=== PATIENT | female | born 1940 | race American Indian/Alaskan Native ===

== ENCOUNTER 2016-07-24 10:40 | Inpatient (IN) | payer MEDICARE, OTHER ==
[2016-07-24 10:42] VITALS: BMI 21.5
--- NOTE | 2016-07-24 11:01 | CT ---
PROCEDURE: CT HEAD WITHOUT CONTRAST. HISTORY: code stroke COMPARISON: None available. TECHNIQUE: Axial computed tomography images were obtained through the head/brain without intravenous contrast. Radiation dose: Total exam DLP = mGy-cm. FINDINGS: HEMORRHAGE: No intracranial hemorrhage. BRAIN: No mass effect or edema. No atrophy or chronic microvascular ischemic changes. VENTRICLES: Unremarkable. No hydrocephalus. CALVARIUM: Unremarkable. PARANASAL SINUSES: Unremarkable as visualized. No significant inflammatory changes. MASTOID AIR CELLS: Unremarkable as visualized. No inflammatory changes. OTHER FINDINGS: None. IMPRESSION: No evidence of acute intracranial hemorrhage territorial infarct mass effect or midline shift.
--- NOTE | 2016-07-24 11:06 | ED PDOC ---
HPI:STROKE - Time Time: 10:50 - Historian Historian: Patient, Family, EMS - Chief Complaint Chief Complaint: Weakness - Onset Date: 07/24/16 Onset: This morning - Timing Timing: Currently Symptomatic - Context Context: Home - Location Locate left: Upper extremity - Severity of pain Maximum severity:: Moderate Pain Scale:: 0 Severity Current: Moderate Pain Scale:: 0 - Associated Symptoms Associated symptoms:: Dysarthria, Paralysis - Exacerbated by Exacerbated by:: Nothing - Relieved by Relieved by:: Nothing - TPA Positive for Contraindication: Yes Reason tPA is not being Administered: last known well 10pm yesterday - Notes: Notes:: Patient is a 75 year old female brought to ED by EMS for possible stroke. According to family and EMS, patient with left sided weakness with unspecified onset time. Patient last seem normal last night. As per patient, she woke up at 0900 unable to get out of bed. She reports her body was not moving and she did not feel well. At about 0950 she called out to family for help. At this time they noticed the deficits, facial droop, left arm/leg weakness and slurred speech and called EMS. Currently in ED patient denies any complaints including current weakness, notes only her chronic right knee pain NIHSS Stroke Scale - Date/Time Evaluation Performed Date Performed: 07/24/16 Time Performed: 11:00 When Was NIHSS Performed: Baseline - How Severe is the Stroke Level of Consciousness: 0=Alert LOC to Questions: 0=Both comments correct LOC to commands: 0=Obeys both correctly Best Gaze: 1=Partial gaze palsy Visual: 0=No visual loss Facial: 1=Minor asymmetry Motor Arm - Left: 3=No effort against gravity (falls immediately) Motor Arm - Right: 0=No drift Motor Leg - Left: 2=Falls before 5 sec Motor Leg - Right: 2=Falls before 5 sec Limb Ataxia: 0=Absent Sensory: 1=Mild to moderate loss Best Language: 0=No aphasia Dysarthia: 1=Mild to moderate slurring Extinction & Inattention (Neglect): 1=Partial neglect (mild regi-attention) Score: 12 rTPA Inclusion/Exclusion - Refusal of Treatment Patient Refused Treatment: No - Inclusion Criteria for Altepase Patient is 18 years or Older: Yes The Clinical Diagnosis of Ischemic Stroke That is Causing a Potentially Disabling Neurological Deficit: Yes Time of Onset is Well Established to be Less Than 270 Minute Before Treatment Would Begin: No Risk/Benefit Discussed With Patient/Family Member Present: No Past Medical History Reviewed: Historical Data, Nursing Documentation, Vital Signs Vital Signs: Last Vital Signs Temp Pulse 90 07/24/16 10:49 Resp 23 07/24/16 10:49 BP Pulse Ox 99 07/24/16 10:49 - Medical History PMH: Atrial Fibrillation, Diabetes, HTN - Surgical History Surgical History: No Surg Hx - Family History Family History: States: Unknown Family Hx - Living Arrangements Living Arrangements: With Family (with ) - Home Medications Home Medications: Ambulatory Orders Medication Instructions Recorded Cephalexin [Keflex] 500 mg PO TID #21 cap 10/28/14 Sulfamethoxazole/Trimethopri 1 tab PO BID #14 tab 10/28/14 [Bactrim Ds 800 mg-160 mg] - Allergies Allergies/Adverse Reactions: Allergies Allergy/AdvReac Type Severity Reaction Status Date / Time No Known Allergies Allergy Verified 10/28/14 13:18 Review of Systems ROS Statement: Except As Marked, All Systems Reviewed And Found Negative Constitutional: Negative for: Fever Cardiovascular: Negative for: Chest Pain, Palpitations Respiratory: Negative for: Shortness of Breath Gastrointestinal: Negative for: Abdominal Pain Neurological: Positive for: Weakness, Change in Speech. Negative for: Altered Mental Status, Headache Physical Exam - Reviewed Nursing Documentation Reviewed: Yes Vital Signs Reviewed: Yes - Physical Exam Appears: Negative for: No Acute Distress Head Exam: Positive for: ATRAUMATIC, NORMAL INSPECTION, NORMOCEPHALIC Skin: Positive for: Normal Color, Warm Eye Exam: Positive for: EOMI, PERRL. Negative for: Nystagmus Neck: Positive for: Normal, Painless ROM Cardiovascular/Chest: Positive for: Chest Non Tender, Irregularly Irregular. Negative for: Murmur, Tachycardia Respiratory: Positive for: Normal Breath Sounds. Negative for: Wheezing, Respiratory Distress Gastrointestinal/Abdominal: Positive for: Normal Exam, Soft. Negative for: Tenderness Extremity: Positive for: Normal ROM, Other (Total weakness left arm and partial left leg ). Negative for: Pedal Edema Neurologic/Psych: Positive for: Alert, Oriented, Cerebellar Tests (intact), Facial Droop (left sided), Other. Negative for: digital editor II-XII ((+) gaze deviation right sided ), Aphasia - Laboratory Results Result Diagrams: 07/24/16 11:26 07/24/16 11:26 - ECG ECG: Positive for: Interpreted By Me ECG Rhythm: Positive for: Normal QRS, Atrial Fibrillation. Negative for: ST/T Changes Rate: 71 O2 Sat by Pulse Oximetry: 99 (RA) Pulse Ox Interpretation: Normal - Radiology X-Ray: Viewed By Me, Read By Radiologist X-Ray Interpretation: Cardiomegaly Medical Decision Making Medical Decision Making: Time: 1045 Initial impression: acute CVA Initial plan: Code stroke called, patient immediately sent to CT-head -- Type and screen -- CT-head -- CMP -- A1C -- Lipid -- Troponin -- CBC -- PT/PTT -- CXR -- Cardiac monitoring Time: 1059 CT-head results reviewed PROCEDURE: CT HEAD WITHOUT CONTRAST. HISTORY: code stroke COMPARISON: None available. TECHNIQUE: Axial computed tomography images were obtained through the head/brain without intravenous contrast. Radiation dose: Total exam DLP = mGy-cm. FINDINGS: HEMORRHAGE: No intracranial hemorrhage. BRAIN: No mass effect or edema. No atrophy or chronic microvascular ischemic changes. VENTRICLES: Unremarkable. No hydrocephalus. CALVARIUM: Unremarkable. PARANASAL SINUSES: Unremarkable as visualized. No significant inflammatory changes. MASTOID AIR CELLS: Unremarkable as visualized. No inflammatory changes. OTHER FINDINGS: None. IMPRESSION: No evidence of acute intracranial hemorrhage territorial infarct mass effect or midline shift. Time: [address] Howard, patient is outside the window for TPA or endovascular treatment due to time of onset is over 8 hours and within 12 hours , agrees with stroke work up and admission Time: 1330 MRI-Head PROCEDURE: MRI BRAIN WITHOUT CONTRAST HISTORY: stroke COMPARISON: None. TECHNIQUE: Multiplanar, multisequence MR images of the brain were obtained without intravenous contrast enhancement. FINDINGS: Somewhat limited study due to the patient's motion. HEMORRHAGE: None DWI: Diffusion restriction at the right temporal frontal lobe suggestive of acute right MCA territory infarct. BRAIN PARENCHYMA: Mild mass effect on the right lateral ventricle is noted. No evidence of significant midline shift. No atrophy or chronic microvascular ischemic changes. VENTRICLES: Unremarkable. No hydrocephalus. CRANIUM: Unremarkable. ORBITS: Grossly unremarkable. PARANASAL SINUSES/MASTOIDS: Clear VASCULAR SYSTEM: Skull base flow voids intact. OTHER FINDINGS: None. IMPRESSION: Diffusion restriction at the right temporal frontal parietal lobe suggestive of moderate-sized acute right MCA territory infarct. Mild mass effect on the right lateral ventricle without evidence of midline shift. Time: 1348 MRA head PROCEDURE: Magnetic Resonance Angiography Brain HISTORY: stroke COMPARISON: None available. TECHNIQUE: 3D time of flight MR angiography of the intracranial arteries was performed. Rotating maximum intensity projection images were generated. FINDINGS: INTERNAL CEREBRAL ARTERIES: The distal portion of the right internal cerebral artery is not visualized. Diffuse irregularity in the distal left internal carotid artery. ANTERIOR CEREBRAL ARTERIES: The right anterior cerebral artery reconstitute from the left circulation. . Right A1 is not visualized. A2 segments are widely patent. Smaller distal branches unremarkable, as visualized. MIDDLE CEREBRAL ARTERIES: The right middle cerebral artery is not visualized. Diffuse irregularity and foci of mild stenosis in the left middle cerebral artery. POSTERIOR CIRCULATION: Basilar Artery: Small in size. Distal Vertebral Arteries: Small in size Posterior Cerebral Arteries: Unremarkable. Posterior Inferior Cerebellar Arteries: Unremarkable. ANEURYSM/ VASCULAR MALFORMATIONS: None. OTHER FINDINGS: None. IMPRESSION: Nonvisualization of the distal right internal carotid artery. Nonvisualization of the right middle cerebral artery. Reconstitution of the right anterior cerebral artery from the left circulation via left A1. Diffuse irregularity in the visualized intracranial arteries consistent with atherosclerotic disease. Small size distal vertebral and basilar arteries Time: 1354 MRA neck PROCEDURE: MR Angiography of the neck without contrast HISTORY: stroke COMPARISON: None available. TECHNIQUE: 3D [id number] angiography of the neck was performed. Rotating maximum intensity projection images of the cervical carotid and vertebral arteries were generated. The origins of the common carotid arteries were not visualized, which is a limitation inherent to the non-contrast time of flight technique. FINDINGS: The study markedly degraded by the patient's motion RIGHT CAROTID ARTERIES: Common Carotid Artery: The right common carotid artery at these smaller than the left. 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 External Carotid Artery (proximal branches): Both external carotid arteries are patent. LEFT CAROTID ARTERIES: Common Carotid Artery: The left common carotid artery is patent. Carotid Bifurcation: Normal. Internal Carotid Artery:The left internal carotid artery is patent. External Carotid Artery (proximal branches): Normal. VERTEBRAL ARTERIES: Right Vertebral Artery: Right vertebral artery is patent P Left Vertebral Artery: Left vertebral artery is patent. OTHER FINDINGS: None. IMPRESSION: Limited study due to patient motion. 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 The right common carotid artery appears smaller than the left. Scribe Attestation: Documented by Nicole Brewer acting as a scribe for Abhilash Orellana MD, MD Scribe Attestation: All medical record entries made by the Scribe were at my direction and personally dictated by me. I have reviewed the chart and agree that the record accurately reflects my personal performance of the history, physical exam, medical decision making, and the department course for this patient. I have also personally directed, reviewed, and agree with the discharge instructions and disposition. Disposition - Clinical Impression Clinical Impression: Acute ischemic stroke - Patient ED Disposition Is Patient to be Admitted: Yes Discussed With Dr.: Marco Myers Doctor Will See Patient In The: Hospital Counseled Patient/Family Regarding: Studies Performed, Diagnosis - Disposition Disposition Time: 11:30 Condition: FAIR - Pt Status Changed To: Hospital Disposition Of: Inpatient - Admit Certification Admit to Inpatient:: After my assessment, the patient will require hospitalization for at least two midnights. This is because of the severity of symptoms shown, intensity of services needed, and/or the medical risk in this patient being treated as an outpatient. - POA Present On Arrival: None Core Measure Indicators: Code Stroke
[2016-07-24 11:33] LABS: BASO # 0.1 K/uL (0.0-0.2); BASO % 0.9 % (0.0-2.0); EOS # 0.1 K/uL (0.0-0.7); EOS % 2.2 % (0.0-4.0); HEMATOCRIT 39.3 % (34.0-47.0); LYMPH # 1.6 K/uL (1.0-4.3); LYMPH % 23.3 % (20.0-40.0); MEAN CELL VOLUME 85.3 fl (81.0-99.0); MEAN CORPUSCULAR HGB CONC 32.9 g/dL (33.0-37.0); MEAN PLATELET VOLUME 9.6 fl (7.2-11.7); MONO # 0.6 K/uL (0.0-0.8); MONO % 8.2 % (0.0-10.0); NEUT # 4.4 K/uL (1.8-7.0); NEUT % 65.4 % (50.0-75.0); RED CELL DISTRIBUTION WIDTH 14.6 % (11.5-14.5); WHITE BLOOD COUNT 6.7 K/uL (4.8-10.8)
[2016-07-24 11:42] LABS: ALKALINE PHOSPHATASE 86 U/L (38-126); ALT/SGPT 32 U/L (9-52); AST/SGOT 28 U/L (14-36); BILIRUBIN,TOTAL 0.9 mg/dl (0.2-1.3); BLOOD UREA NITROGEN 27 mg/dl (7-17); CALCIUM 9.5 mg/dL (8.4-10.2); CARBON DIOXIDE 26 mmol/L (22-30); CHLORIDE 103 mmol/L (98-107); CHOLESTEROL 217 mg/dL (0-199); GFR AFRICAN-AMERICAN 59; GLUCOSE,RANDOM 119 mg/dL (65-105); POTASSIUM 4.1 MMOL/L (3.6-5.0); SODIUM 141 mmol/l (132-148); TOTAL PROTEIN 7.6 G/DL (6.3-8.2)
[2016-07-24 11:45] LABS: PARTIAL THROMBOPLASTIN TIME 25.9 SECONDS (23.3-32.5)
--- NOTE | 2016-07-24 11:46 | RAD ---
HISTORY: stroke COMPARISON: 01/22/2012 FINDINGS: LUNGS: No active pulmonary disease. PLEURA: No significant pleural effusion identified, no pneumothorax apparent. CARDIOVASCULAR: Moderate cardiomegaly and mild vascular congestion OSSEOUS STRUCTURES: No significant abnormalities. VISUALIZED UPPER ABDOMEN: Normal. OTHER FINDINGS: None. IMPRESSION: Moderate cardiomegaly and mild vascular congestion
--- NOTE | 2016-07-24 13:35 | MRI ---
PROCEDURE: MRI BRAIN WITHOUT CONTRAST HISTORY: stroke COMPARISON: None. TECHNIQUE: Multiplanar, multisequence MR images of the brain were obtained without intravenous contrast enhancement. FINDINGS: Somewhat limited study due to the patient's motion. HEMORRHAGE: None DWI: Diffusion restriction at the right temporal frontal lobe suggestive of acute right MCA territory infarct. BRAIN PARENCHYMA: Mild mass effect on the right lateral ventricle is noted. No evidence of significant midline shift. No atrophy or chronic microvascular ischemic changes. VENTRICLES: Unremarkable. No hydrocephalus. CRANIUM: Unremarkable. ORBITS: Grossly unremarkable. PARANASAL SINUSES/MASTOIDS: Clear VASCULAR SYSTEM: Skull base flow voids intact. OTHER FINDINGS: None. IMPRESSION: Diffusion restriction at the right temporal frontal parietal lobe suggestive of moderate-sized acute right MCA territory infarct. Mild mass effect on the right lateral ventricle without evidence of midline shift.
--- NOTE | 2016-07-24 13:49 | MRI ---
PROCEDURE: Magnetic Resonance Angiography Brain HISTORY: stroke COMPARISON: None available. TECHNIQUE: 3D time of flight MR angiography of the intracranial arteries was performed. Rotating maximum intensity projection images were generated. FINDINGS: INTERNAL CEREBRAL ARTERIES: The distal portion of the right internal cerebral artery is not visualized. Diffuse irregularity in the distal left internal carotid artery. ANTERIOR CEREBRAL ARTERIES: The right anterior cerebral artery reconstitute from the left circulation. . Right A1 is not visualized. A2 segments are widely patent. Smaller distal branches unremarkable, as visualized. MIDDLE CEREBRAL ARTERIES: The right middle cerebral artery is not visualized. Diffuse irregularity and foci of mild stenosis in the left middle cerebral artery. POSTERIOR CIRCULATION: Basilar Artery: Small in size. Distal Vertebral Arteries: Small in size Posterior Cerebral Arteries: Unremarkable. Posterior Inferior Cerebellar Arteries: Unremarkable. ANEURYSM/ VASCULAR MALFORMATIONS: None. OTHER FINDINGS: None. IMPRESSION: Nonvisualization of the distal right internal carotid artery. Nonvisualization of the right middle cerebral artery. Reconstitution of the right anterior cerebral artery from the left circulation via left A1. Diffuse irregularity in the visualized intracranial arteries consistent with atherosclerotic disease. Small size distal vertebral and basilar arteries
--- NOTE | 2016-07-24 13:56 | MRI ---
PROCEDURE: MR Angiography of the neck without contrast HISTORY: stroke COMPARISON: None available. TECHNIQUE: 3D Sjsu-[id number]-[id number] angiography of the neck was performed. Rotating maximum intensity projection images of the cervical carotid and vertebral arteries were generated. The origins of the common carotid arteries were not visualized, which is a limitation inherent to the non-contrast time of flight technique. FINDINGS: The study markedly degraded by the patient's motion RIGHT CAROTID ARTERIES: Common Carotid Artery: The right common carotid artery at these smaller than the left. 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 External Carotid Artery (proximal branches): Both external carotid arteries are patent. LEFT CAROTID ARTERIES: Common Carotid Artery: The left common carotid artery is patent. Carotid Bifurcation: Normal. Internal Carotid Artery:The left internal carotid artery is patent. External Carotid Artery (proximal branches): Normal. VERTEBRAL ARTERIES: Right Vertebral Artery: Right vertebral artery is patent P Left Vertebral Artery: Left vertebral artery is patent. OTHER FINDINGS: None. IMPRESSION: Limited study due to patient motion. 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 The right common carotid artery appears smaller than the left.
--- NOTE | 2016-07-24 14:07 | CARD ---
APPROVED REPORT EKG Measurement Heart [id number] <Conclusion> Atrial fibrillation with premature ventricular or aberrantly conducted complexes Nonspecific ST and T wave abnormality Abnormal ECG
[2016-07-24] MEDS: Enoxaparin 40 mg Syringe SC SCH (18:17)
--- NOTE | 2016-07-24 19:33 | CON ---
DATE: 07/24/2016 ATTENDING PHYSICIAN: Marco Myers MD ROOM: #405, bed 2. REASON FOR CONSULTATION: Left-sided weakness. CHIEF COMPLAINT: The patient was brought in by family members through EMS with a history of patient found with left-sided weakness. From neurological point of view, I was called in to evaluate her for further management. HISTORY OF PRESENT ILLNESS: The patient is a 75-year-old right-handed - [place] female who woke up around 9:30. She called her grandson to help her out of the bed because she was not able to get out of the bed because of the weakness. Around 10:00, patient's daughter came in to see her. She was found to have left-sided weakness with abnormal eye movements. She called 911, she was brought into [facility] around 10:50 a.m. From the EMS, the patient was transferred to the ED and examination showed a left-sided hemiplegia with right lateral gaze, suggestive of possible right MCA territory ischemic process. Immediately a CAT scan was done. The CAT scan showed no bleed. The patient passed the window period for TPA administration. The patient was sent back to telemetry floor for further management for her new ischemic process. PAST MEDICAL HISTORY: Atrial fibrillation, hypertension, diabetes mellitus. PERSONAL HISTORY: Denies smoking or alcohol use. ALLERGIES: No known allergies. MEDICATIONS: She takes aspirin, Plavix, metoprolol, and lisinopril. PHYSICAL EXAMINATION: VITAL SIGNS: Blood pressure 136/83 with mean arterial pressure of 100, respiratory rate 16, temperature afebrile, pulse rate 79, irregularly irregular. NECK: Supple. No carotid bruit. HEART: Irregularly irregular. EXTREMITIES: Left leg externally rotated. NEUROLOGIC EXAMINATION: The patient is examined in the presence of her daughter and her . She is awake, alert, oriented to person, place, and time. Speech is clear. Naming, repetition intact. She knows the President. She knows the year. CRANIAL NERVE EXAMINATION: The patient has a right lateral gaze preponderance. Pupils reactive to light. Extraocular movements was not able to be done because of right lateral gaze preponderance. Good gag. MOTOR EXAMINATION: Dense left-sided hemiplegia. DEEP TENDON REFLEXES: Absent throughout. Plantars are upgoing on the left side , right side was downgoing. SENSORY EXAMINATION: Decreased pinprick on the left side. The patient shows extinction to double simultaneous stimuli. GAIT AND COORDINATION: Deferred at this time. CONCLUSION: Upon reviewing her history and neurological examination, the patient is presenting with right lateral gaze preponderance with left dense hemiplegia and Babinski sign with left homonymous hemianopsia. There is a possibility of a right MCA territory ischemic process versus mass. Considering the atrial fibrillation, this is probably paroxysmal atrial fibrillation and would have been the cause of her insult. WORKUP: MRI of the brain showed a mismatch suggestive of early ischemic process over the right temporoparietal region without any mass effect or shift. MR angiogram showed a 10 caliber right carotid artery and complete occlusion distally noted. The left side is completely open. 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 BLOOD WORKUP: WBC 6.7, hemoglobin 12.9, hematocrit 39.3, platelet 169. PT 10.6 , INR 1.02, PTT 25.9. Sodium 141, potassium 4.1, chloride 103, bicarbonate 26, BUN 27, creatinine 1.1. Hemoglobin A1c 7.3. Cholesterol 217, HDL 62, LDL 96. RECOMMENDATIONS: 1. Keep the blood pressure with mean arterial pressure of 100. 2. Diabetic control. 3. Echocardiogram, probably a transesophageal echocardiogram may be necessary to rule out cardiac vs cryptogenic stroke source. 4. Deep venous thrombosis prophylaxis. The patient should get physical therapy and improve her strength by early ambulation. 5. Agree with ASA and plavix with statin and ARB or ACEI to stabilize neuro vascular endothelium. The patient's condition has been well discussed with her family members. The patient will be followed closely with you. Jose Howard MD cc: [id number] TT: 07/24/2016 19:33:43 Confirmation # [id number] Dictation # [id number] karuna LOPEZ
[2016-07-25] MEDS: Enoxaparin 40 mg Syringe SC SCH (09:00)
--- NOTE | 2016-07-25 10:06 | US ---
PROCEDURE: Duplex ultrasound of the carotid and vertebral arteries. HISTORY: stroke COMPARISON: Comparison is made to the previous MRA of the neck dated 07/24/2016 TECHNIQUE: Grayscale and duplex Doppler evaluation of the cervical carotid and vertebral arteries were performed. The common carotid, carotid bifurcations and cervical ICA and proximal ECA were evaluated. The vertebral arteries were evaluated for gross patency and direction. FINDINGS: This study is markedly limited due to patient motion and involuntary movement of the patient's head. The left internal carotid and external carotid arteries could not be exam. RIGHT CAROTID ARTERIES: Common Carotid Artery: The visualized portion of the right common carotid artery is patent demonstrate low velocity blood flow and abnormal monophasic waveform. Maximal flow velocity of 46.8 cm/s. Carotid Bifurcation: Abnormal with findings suspicious for noncalcified plaques. 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 External Carotid Artery (proximal branches): Patent. Maximal flow velocity of 101.6 cm/s. ICA/CCA Ratio: 1.2 LEFT CAROTID ARTERIES: Common Carotid Artery: Patent Maximal flow velocity of 80.7 cm/s. Carotid Bifurcation: Could not be exam Internal Carotid Artery:Could not be exam External Carotid Artery (could not be exam ICA/CCA Ratio: Could not be obtained VERTEBRAL ARTERIES: Right Vertebral Artery: Patent. Antegrade flow. Left Vertebral Artery: Patent. Antegrade flow. OTHER FINDINGS: None. IMPRESSION: Limited incomplete study. Patient was experiencing involuntary head motion and was not able to cooperate with the dispatcher street department. The left common and external carotid arteries were not examined in this study. 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 Slow blood flow in the right common carotid artery with peak systolic velocity of 48.8 cm/sec.
--- NOTE | 2016-07-25 10:19 | CP.PCM.HP ---
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 Present on Admission - Present on Admission Any Indicators Present on Admission: No Past Patient History - Past Medical History & Family History Past Medical History?: Yes - Past Social History Smoking Status: Former Smoker - CARDIAC Hx Cardiac Disorders: Yes Hx Hypertension: Yes - PULMONARY Hx Respiratory Disorders: No - NEUROLOGICAL Hx Neurological Disorder: No - HEENT Hx HEENT Problems: No - RENAL Hx Chronic Kidney Disease: No - ENDOCRINE/METABOLIC Hx Diabetes Mellitus Type 2: Yes - HEMATOLOGICAL/ONCOLOGICAL Hx Blood Disorders: No - INTEGUMENTARY Hx Dermatological Problems: No - MUSCULOSKELETAL/RHEUMATOLOGICAL Hx Musculoskeletal Disorders: No Hx Falls: No - GASTROINTESTINAL Hx Gastrointestinal Disorders: No - GENITOURINARY/GYNECOLOGICAL Hx Genitourinary Disorders: No - PSYCHIATRIC Hx Psychophysiologic Disorder: No Hx Substance Use: No - SURGICAL HISTORY Hx Surgeries: Yes Hx Musculoskeletal Surgery: Yes Other/Comment: LEFT HIP REPLACEMENT - ANESTHESIA Hx Anesthesia: Yes Hx Anesthesia Reactions: No Hx Malignant Hyperthermia: No Meds Allergies/Adverse Reactions: Allergies Allergy/AdvReac Type Severity Reaction Status Date / Time No Known Allergies Allergy Verified 10/28/14 13:18 Results - Vital Signs Recent Vital Signs: Last Vital Signs Temp 97.3 F L 07/25/16 08:03 Pulse 71 07/25/16 08:03 Resp 20 07/25/16 08:03 BP 137/84 07/25/16 08:03 Pulse Ox 98 07/25/16 08:03 - Labs Result Diagrams: 07/24/16 11:26 07/24/16 11:26 Labs: Laboratory Results - last 24 hr 07/24/16 07/24/16 07/24/16 11:49 12:18 16:13 POC Glucose (mg/dL) 124 H Hemoglobin A1c 7.3 H Blood Type Confirm O POSITIVE 07/24/16 07/25/16 21:45 05:21 POC Glucose (mg/dL) 90 89 Hemoglobin A1c Blood Type Confirm
--- NOTE | 2016-07-25 11:05 | HP ---
She is hospitalized under my care from Emergency Room. This is a 75-year-old lady, known to me since 1991 when she had visited Emergency Room for palpitations and was found to have supraventricular tachycardia. Since then, the patient has visited the Emergency Room once a year or occasionally once in 2 or 3 years with the same complaint and occasionally a supraventricular tachycardia and rarely atrial fibrillation was documented, which was consistently of a transient nature. She is a longstanding diabetic and hypertensive and chronically severely obese - [place] female who required a hip replacement because of osteoarthritis. She also has significant osteoarthritis of both knees. She has never been a smoker , has never suffered a myocardial infarction or congestive cardiac failure. One of her sisters has sick sinus syndrome with atrial fibrillation and has required a pacemaker implant a couple of years back. The patient came to the Emergency Room when upon waking up, she found that she could not move the left side of her body. 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 The patient clinically displays a dense left hemiplegia. She is awake and alert and appropriate in her responses, follows commands easily and during swallowing evaluation, was able to swallow thickened liquids competently. PHYSICAL EXAMINATION: VITAL SIGNS: She was afebrile. Her telemetry now shows regular sinus rhythm, though in Emergency Room, she had atrial fibrillation. Her heart rate is 74 beats per minute, regular, and her blood pressure was 134/74 mmHg. Her jugular venous pressure could not be adequately evaluated because of a short thick neck. EXTREMITIES: No pedal edema was detected. Pedal pulses were well felt. NECK: There were no carotid bruits. HEART: The apex could not be palpated. The first and second heart sounds were normal. There was no murmur or gallop. LUNGS: There were no rales. ABDOMEN: Soft. Liver and spleen were not palpable. In Emergency Room, she displayed atrial fibrillation at moderate heart rate since she was on a beta lesly. As mentioned earlier, her CT scan and MRI and MRA were carried out and their findings were described earlier in this note. LABORATORY DATA: Shows that her hemoglobin and hematocrit were 12.9 g and 39.3 % respectively. Her WBC count and platelet counts were within normal limits. Her BUN and creatinine were 27 and 1.1 mg %. Her electrolytes were normal. Her troponin was normal and her liver profile was normal. Her LDL cholesterol was 96 and triglycerides were 97 mg %. IMPRESSION: At this time is left hemiplegia with a right cerebral infarct, probably secondary to an embolic event from transient atrial fibrillation in this patient with hypertension and diabetes mellitus type 2, which is controlled with good glycemic control, chronic exogenous obesity with status post hip replacement for osteoarthritis, severe osteoarthritis of both knees. Telemetry shows brief pauses (last dose of Metoprolol was 36 hrs back) If these persist ?? need for pacer. The patient has had a history of zoster rash a few years back. At this point, she is hemodynamically stable, has been started on aspirin and Plavix. Would eventually require chronic oral anticoagulation. Will undergo an echocardiogram, though an echocardiogram from 02/2014 showed preserved left ventricular systolic function with depressed diastolic compliance. Marco Myers MD cc: [id number] TT: 07/25/2016 11:04:56 en MTDD
--- NOTE | 2016-07-25 14:00 | CARD ---
APPROVED REPORT EXAM: Two-dimensional and M-mode echocardiogram with Doppler and color Doppler. Other Information Quality : GoodRhythm : Atrial Fibrillation INDICATION CVA/TIA 2D DIMENSIONS IVSd1.01 (0.7-1.1cm)LVDd4.13 (3.9-5.9cm) LVOT Diameter1.61 (1.8-2.4cm)PWd1.18 (0.7-1.1cm) IVSs1.52 (0.8-1.2cm)LVDs2.42 (2.5-4.0cm) FS (%) 41.5 %PWs1.34 (0.8-1.2cm) LVEF (%)55.0 (>50%) M-Mode DIMENSIONS Left Atrium (MM)4.65 (2.5-4.0cm)IVSd1.06 (0.7-1.1cm) Aortic Root2.71 (2.2-3.7cm)LVDd4.24 (4.0-5.6cm) Aortic Cusp Exc.1.97 (1.5-2.0cm)PWd1.12 (0.7-1.1cm) IVSs1.38 cmFS (%) 46 % LVDs2.29 (2.0-3.8cm)PWs1.74 cm Mitral Valve E/A ratio0.0 TDI E/Lateral E'0.0E/Medial E'0.0 Tricuspid Valve TR Peak [id number] [id number] Peak Gr.43mmHg [id number] LEFT VENTRICLE The left ventricle is normal size. There is normal left ventricular wall thickness. The left ventricular function is normal. The left ventricular ejection fraction is within the normal range. There is normal LV segmental wall motion. Patient is in A Fib RIGHT VENTRICLE The right ventricle is normal size. There is normal right ventricular wall thickness. The right ventricular systolic function is normal. ATRIA The left atrium is moderately dilated. The right atrium is moderately dilated. AORTIC VALVE The aortic valve is mildly thickened. No aortic regurgitation is present. There is no aortic valvular stenosis. MITRAL VALVE The mitral valve is mildly thickened. There is no mitral valve stenosis. Mitral regurgitation is trace to mild. TRICUSPID VALVE The tricuspid valve is normal in structure There is moderate tricuspid regurgitation. There is moderate pulmonary hypertension. PULMONIC VALVE The pulmonary valve is normal in structure and function. There is no pulmonic valvular regurgitation. GREAT VESSELS The aortic root is normal in size. The IVC is dilated. PERICARDIAL EFFUSION The pericardium appears normal. <Conclusion> The left ventricle is normal size. There is normal left ventricular wall thickness. The left ventricular function is normal. The left ventricular ejection fraction is within the normal range. There is normal LV segmental wall motion. There is moderate tricuspid regurgitation. There is moderate pulmonary hypertension.
[2016-07-25] MEDS: Potassium Chl 20 mEq in NS 1,000 ML IV SCH (17:03)
--- NOTE | 2016-07-25 17:06 | CARD ---
APPROVED REPORT EKG Measurement Heart [id number] <Conclusion> Atrial fibrillation with slow ventricular response Abnormal ECG
[2016-07-26] MEDS: Enoxaparin 40 mg Syringe SC SCH (09:56)
--- NOTE | 2016-07-26 11:42 | CP.PCM.PN ---
Subjective - Date & Time of Evaluation Date of Evaluation: 07/26/16 Time of Evaluation: 11:10 - Subjective Subjective: Drowsy, easily arousable Mostly lucid except for occ confusion Telemetry continues to show periods of bradycardia at 40-42 BPM (Pauses of upto 2.5 sec) >48 hrs from last dose of metoprolo BP 140/70 mm Hg Chest clear, heart sounds pure Echocardiogram shows preserved LV syst function No significant valvulopathy Will discuss holding antiplatelet Rx in anticipation of Pacer in the next 2-3 days Objective - Vital Signs/Intake and Output Vital Signs (last 24 hours): Temp Pulse Resp BP Pulse Ox 98 F 63 20 169/66 H 98 07/26/16 08:00 07/26/16 09:56 07/26/16 08:00 07/26/16 09:56 07/26/16 08:00 Intake and Output: 07/26/16 07/26/16 06:59 18:59 Output Total 1100 Balance -1100 - Medications Medications: Current Medications Aspirin (Aspirin) 325 mg PO DAILY [facility] Last Admin: 07/26/16 09:58 Dose: 325 mg Clopidogrel Bisulfate (Plavix) 75 mg PO DAILY [facility] Last Admin: 07/26/16 09:56 Dose: 75 mg Enoxaparin Sodium (Lovenox) 40 mg SC DAILY [facility] PRN Reason: Protocol Last Admin: 07/26/16 09:56 Dose: 40 mg Home Med (Travoprost [Travatan Z]) 0.05 ml OU HS [facility] Potassium Chloride/Sodium Chloride (Potassium Chl 20 Meq In Ns) 1,000 mls @ 49.505 mls/hr IV .[id number] [facility] Last Admin: 07/25/16 17:03 Dose: 49.505 mls/hr Lisinopril (Zestril) 10 mg PO DAILY [facility] Last Admin: 07/26/16 09:56 Dose: 10 mg - Labs Labs: PT 10.6 SECONDS (9.6-11.2) 07/24/16 11:26 INR 1.02 (0.92-1.08) 07/24/16 11:26 APTT 25.9 SECONDS (23.3-32.5) 07/24/16 11:26
[2016-07-26] MEDS: Potassium Chl 20 mEq in NS 1,000 ML IV SCH (14:45)
--- NOTE | 2016-07-26 19:06 | PN ---
DATE: 07/26/2016 NEUROLOGICAL PROBLEM: Left MCA with right hemiplegia, probable cardioembolic phenomenon. The patient's condition has been discussed with Dr. Myers. He noted some pauses in telemetry, which shows could be the cardiac dysfunction should have been the cause for her stroke. Definitely the patient needs permanent pacemaker. The patient is turned off antiplatelets for now and continue with Lovenox. When medically stable, the patient to get a permanent pacemaker and anticoagulation and antiplatelets can be resumed after the pacemaker placement. The patient seems to be lethargic. Dense right hemiplegia. Right homonymous hemianopsia noted with visual threat on her right side. RECOMMENDATIONS: The patient's condition has been discussed with Dr. Myers. I totally agree with his plan of management. The patient will be followed closely with you. Jose Howard MD cc: [id number] TT: 07/26/2016 19:05:18 Confirmation # [id number] Dictation # [id number] jesus LOPEZ
[2016-07-26] MEDS: TRAVOPROST OU SCH (21:05)
[2016-07-27 07:22] LABS: ALKALINE PHOSPHATASE 86 U/L (38-126); ALT/SGPT 30 U/L (9-52); AST/SGOT 30 U/L (14-36); BILIRUBIN,TOTAL 1.3 mg/dl (0.2-1.3); BLOOD UREA NITROGEN 13 mg/dl (7-17); CALCIUM 9.2 mg/dL (8.4-10.2); CARBON DIOXIDE 23 mmol/L (22-30); CHLORIDE 109 mmol/L (98-107); GFR AFRICAN-AMERICAN > 60; GLUCOSE,RANDOM 152 mg/dL (65-105); POTASSIUM 4.1 MMOL/L (3.6-5.0); SODIUM 140 mmol/l (132-148); TOTAL PROTEIN 6.9 G/DL (6.3-8.2)
--- NOTE | 2016-07-27 09:17 | CP.PCM.PN ---
Subjective - Date & Time of Evaluation Date of Evaluation: 07/27/16 Time of Evaluation: 09:10 - Subjective Subjective: Easily arousable Appears to be quite aware of her surroundings Telemetry shos rare ventricular pases of >2 sec Average HR 70-80 BPM BP 160/80 mm Hg No rales, no gallop Labs show Normal BUN/Creatinine and electrolytes Will send urine for C/S Will watch telemetry re pauses Objective - Vital Signs/Intake and Output Vital Signs (last 24 hours): Temp Pulse Resp BP Pulse Ox 99 F 71 20 141/70 97 07/27/16 08:00 07/27/16 08:00 07/27/16 08:00 07/27/16 08:00 07/27/16 08:00 Intake and Output: 07/27/16 07/27/16 06:59 18:59 Intake Total Output Total Balance - Medications Medications: Current Medications Enoxaparin Sodium (Lovenox) 40 mg SC DAILY [facility] PRN Reason: Protocol Last Admin: 07/26/16 09:56 Dose: 40 mg Home Med (Travoprost [Travatan Z]) 0.05 ml OU HS [facility] Last Admin: 07/26/16 21:05 Dose: 0.05 ml Potassium Chloride/Sodium Chloride (Potassium Chl 20 Meq In Ns) 1,000 mls @ 49.505 mls/hr IV .[id number] [facility] Last Admin: 07/26/16 14:45 Dose: 49.505 mls/hr Lisinopril (Zestril) 20 mg PO DAILY [facility] - Labs Labs: 07/27/16 06:40 PT 10.6 SECONDS (9.6-11.2) 07/24/16 11:26 INR 1.02 (0.92-1.08) 07/24/16 11:26 APTT 25.9 SECONDS (23.3-32.5) 07/24/16 11:26
[2016-07-27] MEDS: Enoxaparin 40 mg Syringe SC SCH (10:04)
[2016-07-27] MEDS: Potassium Chl 20 mEq in NS 1,000 ML IV SCH (10:12)
--- NOTE | 2016-07-27 16:20 | PN ---
DATE: 07/27/2016 TIME OF EVALUATION:2p.m. NEUROLOGICAL PROBLEM: Embolic stroke affecting the left MCA territory manifesting with right hemiplegia. PHYSICAL EXAMINATION: VITAL SIGNS: Blood pressure 161/76, mean arterial pressure of 104, respiratory rate 18, temperature 98.6. The patient is more awake and communicable. Speech is intact. The right hemiplegia remains the same. The patient is scheduled to have a pacemaker Thursday or . The patient is off from oral antiplatelets at present. The patient is on Lovenox for DVT prophylaxis. The patient will be followed closely with you. Jose Howard MD cc: [id number] TT: 07/27/2016 16:19:43 Confirmation # [id number] Dictation # [id number] jesus [id number]
[2016-07-27] MEDS: TRAVOPROST OU SCH ×2 (22:00→23:58)
--- NOTE | 2016-07-28 10:37 | CP.PCM.PN ---
Subjective - Date & Time of Evaluation Date of Evaluation: 07/28/16 Time of Evaluation: 10:10 - Subjective Subjective: Easily arousable, lucid once awake Telemetry had shown only two episodes of HR below 45 BPM (with pauses >2.5 sec yesterday) Telemetry does not show any episode of HR below 60 during last 24 hours Periods of HR exceeding 120 BPM numerous BP 146/70 mm Hg Neurologically: Motor function unchanged Level of conciousness much better Will add small dose of metoprolol to manage HR Resume DAPT since no pacer planned Sat OOB yesterday, PT to continue Objective - Vital Signs/Intake and Output Vital Signs (last 24 hours): Temp Pulse Resp BP Pulse Ox 98.2 F 87 18 162/85 H 97 07/28/16 08:00 07/28/16 09:17 07/28/16 08:00 07/28/16 09:17 07/28/16 08:00 Intake and Output: 07/28/16 07/28/16 06:59 18:59 Intake Total 700 Output Total 500 Balance 200 - Medications Medications: Current Medications Aspirin (Aspirin) 325 mg PO DAILY [facility] Clopidogrel Bisulfate (Plavix) 75 mg PO DAILY [facility] Home Med (Travoprost [Travatan Z]) 0.05 ml OU HS [facility] Last Admin: 07/27/16 23:58 Dose: 0.05 ml Potassium Chloride/Sodium Chloride (Potassium Chl 20 Meq In Ns) 1,000 mls @ 49.505 mls/hr IV .[id number] [facility] Last Admin: 07/27/16 10:12 Dose: 49.505 mls/hr Lisinopril (Zestril) 20 mg PO DAILY [facility] Last Admin: 07/28/16 09:17 Dose: 20 mg Metoprolol Tartrate (Lopressor) 12.5 mg PO Q12 [facility] - Labs Labs: 07/27/16 06:40 PT 10.6 SECONDS (9.6-11.2) 07/24/16 11:26 INR 1.02 (0.92-1.08) 07/24/16 11:26 APTT 25.9 SECONDS (23.3-32.5) 07/24/16 11:26
--- NOTE | 2016-07-28 21:00 | PN ---
DATE: 07/28/2016 NEUROLOGICAL PROBLEM: Possible cardioembolic stroke over right MCA territory manifesting with left h emiplegia. Even it should be noted suggestive of rapid heart rate and planning of getting pacemaker was on hold. The patient had resumed antiplatelets. NEUROLOGIC EXAMINATION: She is awake, alert. Speech is intact. Left dense hemiplegia again noted. MRI of the brain showed diffusion restriction at the right temporofrontal parietal lobe, consistent w ith a right MCA stroke. 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 MR angiogram of the brain showed no visualization of the distal right internal carotid artery. The patient should continue dual antiplatelets, DVT prophylaxis. The patient should get out of the bed and improve physical therapy. Cardiac management for her rapid heart rate by Dr. Myers. Her med ication has been adjusted by him, for a rapid rhythm. The patient will be followed closely with you. Jose Howard MD cc: [id number] TT: 07/28/2016 21:00:11 Confirmation # [id number] Dictation # [id number]
[2016-07-28] MEDS: TRAVOPROST OU SCH (22:26)
[2016-07-29] MEDS ORDERED: Alum-Mag Hydrox-Simethicone Susp (30 mL) PO ONE (02:12)
--- NOTE | 2016-07-29 02:17 | CP.PCM.PCO ---
Physician Communication Note - Physician Communication Note Physician Communication Note: Suki Huynh Addendum Addendum: 07/29/16 02:17 CC: Abdominal Discomfort S: Pt reports this is not new, achy in nature at LEFT flank/lower rib region. She says she's had this before and thinks it may be positioning, but reports no BM since 07/25 and she continues to pass flatus. She is having some mild nausea which she says she gets intermittently. O: AVSS GEN: NAD, appears uncomfortable 2/2 position ABD: soft, ND/NT, BS+ Pain reproducible at LEFT lower costal margin on gentle palpation. Intervention: Started bowel regimen, Maalox, re-positioning A/P: 75F admitted for acute CVA now with complaints that after evaluation appear to be constipation (can be exacerbated by CVA) vs. MSK. - Bowel regimen ordered - Maintain K wnl - c/w re-positioning - Will re-evaluate - Further f/u as per primary team
[2016-07-29] MEDS: Potassium Chl 20 mEq in NS 1,000 ML IV SCH ×2 (02:40→22:40)
[2016-07-29 08:25] LABS: ALB/GLOB RATIO 0.9 (1.0-2.1); ALKALINE PHOSPHATASE 81 U/L (38-126); ALT/SGPT 31 U/L (9-52); AST/SGOT 34 U/L (14-36); BILIRUBIN,TOTAL 1.6 mg/dl (0.2-1.3); BLOOD UREA NITROGEN 15 mg/dl (7-17); CALCIUM 8.7 mg/dL (8.4-10.2); CARBON DIOXIDE 23 mmol/L (22-30); CHLORIDE 108 mmol/L (98-107); GFR AFRICAN-AMERICAN > 60; GLUCOSE,RANDOM 132 mg/dL (65-105); POTASSIUM 4.7 MMOL/L (3.6-5.0); SODIUM 131 mmol/l (132-148); TOTAL PROTEIN 6.8 G/DL (6.3-8.2)
[2016-07-29] MEDS: Docusate-Senna 50 mg-8.6 mg Tab PO SCH (21:52)
[2016-07-29] MEDS: TRAVOPROST OU SCH (21:53)
--- NOTE | 2016-07-30 05:07 | CP.PCM.PCO ---
Physician Communication Note - Physician Communication Note Physician Communication Note: Suki Huynh Addendum Addendum: 07/30/16 04:57 CC: A-fib w/ RVR S: Pt denies any chest pain, palpitations, SOB, or nausea. O: HR- 124, BP- 124/93, RR- 20 GEN: NAD, Verbal PULM: CTAB, mildy decreased L>R, no wheeze CARD: IRR/IRR, tachycardia ABD: soft, NT/ND Review of telemetry shows HR became elevated at ~0300 in the 120s w/o known precipitating event, and was sustained until notified. A/P: 75F admitted for CVA, has a-fib being rate-controlled on Lopressor 12.5mg Q12H now with asymptomatic rate increase that resolved while speaking to her. Her rate is ranging b/t 89-108 at this time. I don't feel at this time it is necessary to administer additional medication. - No intervention at this time - Please page again if rate > 110 - Further mgmnt as per primary team
--- NOTE | 2016-07-30 08:45 | PQF DECUBI ---
This form is a permanent part of the medical record 07/30/16 Dr.J. Myers, Would you please clarify if there is an associated diagnosis to go along with the following findings: Admitted on 07/24/16. No mention of skin breakdown. Nurses notes on 07/26 state stage II sacral pressure ulcer. roll mechanic visited 07/28 with documentation of stage II pressure ulcer sacrum. Recommending Nutrashield ointment. Clarification of your documentation is requested to better reflect the severity of illness and intensity of treatment of your patient. Indicators present [x] Documented diagnosis of decubitus/pressure ulcer :Nursing notes Location in the medical record that reflects the above clinical findings: [] Treatment Provided: PHYSICIAN'S RESPONSE Patient does not have a pressure sore She has moisture related skin loss on the left gluteal fold. Based on your medical judgment can you define the stage of the decubitus/ pressure ulcer as: Present On Admission [ ] Stage 1 Pressure Ulcer: Specify Location: [ ] Yes [ ] No Intact Skin with non-blanching erhythema (reddened area on skin) Painful or Itchy When compared to adjacent tissue may be firmer/softer or warmer/cooler [ ] Stage 2 Pressure Ulcer: Specify Location: [ ] Yes [ ]No Partial thickness loss of dermis Abrasion, blister or shallow open crater Red/pink wound bed without slough [ ] Stage 3 Pressure Ulcer: Specify Location: [ ]Yes [ ] No Full thickness skin loss (bone, tendon, muscle are not exposed) Damage or necrosis into subcutaneous soft tissues Slough present but does not obscure the depth of tissue loss Undermining and/or tunneling [ ] Stage 4 Pressure Ulcer: Specify Location: [ ] Yes [ ] No Full thickness skin loss with exposed bone, tendon or muscle Slough Undermining and/or tunneling Extend into muscle and/or supporting structure (e.g. fascia, tendon, or joint capsule) [ ] Unstageable: Specify Location: [] [ ] Yes [ ] No [ ] OTHER EXPLANATION: In responding to this query, please exercise your independent professional judgment. The fact that a question is asked does not imply that any particular answer is desired or expected. Thank you for your clarification on this documentation. If you have any questions please call:[phone] * Thank you, Candice Hatfield RN CDMP MTDD
--- NOTE | 2016-07-30 08:52 | PQF GENQUE ---
This form is a permanent part of the medical record 07/30/16 Dr.J. Myers, Would you please clarify if there is an associated diagnosis to go along with the urine c/s findings of >100,00 CFU of E.Coli. Admitted with a CVA. Moreno inserted. Urine C/S : + for E.Coli. WBC 6.7, afebrile. Clarification of your documentation is requested to better reflect the severity of illness and intensity of treatment of your patient. PHYSICIAN'S RESPONSE [ ] Bacteriuria [ X ] UTI [ ] Other explanation [ ] No additional diagnosis [ ] Unable to determine Based on your medical judgment of the clinical indicators outlined above please clarify the following: [ ] Practitioner response [ ] If unable to determine, please check the box, sign and date. Present On Admission (POA) Indicator: [] Present at the time of admission [] Not present at the time of admission [] Clinically Undetermined In responding to this query, please exercise your independent professional judgment. The fact that a question is asked does not imply that any particular answer is desired or expected. Thank you for your clarification on this documentation. If you have any questions please call:[phone] * Thank you, Candice Hatfield RN CDMP [facility]
[2016-07-30] MEDS ORDERED: Barium Sulfate Susp 0.1% w/v, 0.1% w/w 450 mL Bottle PO ONE (09:49)
--- NOTE | 2016-07-30 10:16 | CP.PCM.PN ---
Subjective - Date & Time of Evaluation Date of Evaluation: 07/30/16 Time of Evaluation: 09:15 - Subjective Subjective: Continues to recover ever so slowly from her cerebral infarct and dense lt hemiplegia Telemetry shows periods of rapid HR (120-130 BPM) No bradycardia or pauses BP 140/70 mm Hg No signs of CHF Urine C/S shows >100,000 colonies of E. coli/ Sensetive to cipro Will start pt on Cipro and D/C Moreno catheter Will increase Metoprolol to control HR Pt going for vedio swollow Objective - Vital Signs/Intake and Output Vital Signs (last 24 hours): Temp Pulse Resp BP Pulse Ox 98.0 F 78 20 167/67 H 96 07/30/16 08:25 07/30/16 09:09 07/30/16 08:25 07/30/16 09:09 07/30/16 08:25 Intake and Output: 07/30/16 07/30/16 06:59 18:59 Intake Total 724 Output Total 875 Balance -151 - Medications Medications: Current Medications Acetaminophen (Tylenol 325mg Tab) 650 mg PO Q6 PRN PRN Reason: Pain, moderate (4-7) Last Admin: 07/29/16 10:44 Dose: 650 mg Aspirin (Aspirin) 325 mg PO DAILY [facility] Last Admin: 07/30/16 09:07 Dose: 325 mg Clopidogrel Bisulfate (Plavix) 75 mg PO DAILY [facility] Last Admin: 07/30/16 09:07 Dose: 75 mg Docusate Sodium (Colace) 100 mg PO BID [facility] Last Admin: 07/30/16 09:12 Dose: Not Given Home Med (Travoprost [Travatan Z]) 0.05 ml OU HS [facility] Last Admin: 07/29/16 21:53 Dose: 0.05 ml Potassium Chloride/Sodium Chloride (Potassium Chl 20 Meq In Ns) 1,000 mls @ 49.505 mls/hr IV .[id number] [facility] Last Admin: 07/29/16 22:40 Dose: Not Given Lisinopril (Zestril) 20 mg PO DAILY [facility] Last Admin: 07/30/16 09:08 Dose: 20 mg Metoprolol Tartrate (Lopressor) 12.5 mg PO Q12 [facility] Last Admin: 07/30/16 09:09 Dose: 12.5 mg Senna/Docusate Sodium (Senokot S 50 Mg-8.6 Mg) 1 tab PO HS [facility] Last Admin: 07/29/16 21:52 Dose: 1 tab - Labs Labs: 07/29/16 06:50 PT 10.6 SECONDS (9.6-11.2) 07/24/16 11:26 INR 1.02 (0.92-1.08) 07/24/16 11:26 APTT 25.9 SECONDS (23.3-32.5) 07/24/16 11:26
[2016-07-30] MEDS: Lactobacillus Acidophilus 500 MU Cap PO SCH ×2 (11:10→17:15)
--- NOTE | 2016-07-30 11:32 | RAD ---
PROCEDURE: Modified barium video swallow HISTORY: dysphagia COMPARISON: Not available TECHNIQUE: Mixtures of varying in viscosity of fluid mixed with barium were administered orally, under fluoroscopic monitoring. FINDINGS: There is no evidence of aspiration during this examination. Transient laryngeal penetration was observed during swallowing of thin liquids only. Please see the report of the speech pathology department for full evaluation. IMPRESSION: No aspiration observed. Please see report of speech pathology Department.
--- NOTE | 2016-07-30 17:16 | PN ---
DATE: 07/30/2016 The patient is examined in the presence of the family members. 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 PHYSICAL EXAMINATION: VITAL SIGNS: Blood pressure 134/87, mean arterial pressure of 102, respiratory rate 16, temperature afebrile. NECK: Supple. The patient found to have a urinary tract infection. Antibiotics have been started. The patient is on dual antiplatelets for her stroke prophylaxis. The patient also on DVT prophylaxis. The patient should get out of the bed and physical therapy should be started. From neurological poin t of view, the patient is ready for rehabilitation. The patient will be followed closely while she i s in the hospital. Jose Howard MD cc: [id number] TT: 07/30/2016 17:15:52 Confirmation # [id number] Dictation # [id number] tn
[2016-07-30] MEDS: Docusate-Senna 50 mg-8.6 mg Tab PO SCH (22:02)
[2016-07-30] MEDS: TRAVOPROST OU SCH (22:04)
[2016-07-31 07:55] VITALS: RESP 20
[2016-07-31] MEDS: Lactobacillus Acidophilus 500 MU Cap PO SCH ×2 (10:37→17:00)
[2016-07-31] MEDS ORDERED: Enoxaparin 40 mg Syringe SC SCH (11:15)
[2016-07-31 12:18] LABS: MEAN CELL VOLUME 86.9 fl (81.0-99.0); MEAN CORPUSCULAR HEMOGLOBIN 27.4 pg (27.0-31.0); MEAN CORPUSCULAR HGB CONC 31.6 g/dL (33.0-37.0); RED CELL DISTRIBUTION WIDTH 14.8 % (11.5-14.5); WHITE BLOOD COUNT 7.9 K/uL (4.8-10.8)
--- NOTE | 2016-07-31 15:02 | CP.PCM.PCO ---
Assessment & Plan - Assessment and Plan (Free Text) Assessment: Patient medically cleared for transfer [facility] (covering for dr mejia simental) as per continue meds, lovenox 40mg sq in acute rehab until reassessed by dr smiental. SW and patient aware of transfer.
[2016-07-31 17:05] VITALS: BP 140/71; PULSE 76; TEMP 98.4; O2SAT 100
== END 2016-07-31 17:30 | DRG 65 ==
LOC: H.ER 10:40 → H.ERHOLD 11:43 → H.TEL 14:40
PROVIDERS: ADMIT Internal Medicine Cardiovascular Disease; ATTEND Internal Medicine Cardiovascular Disease
DX: I63.411 Cerebral infarction due to embolism of right middle cerebral artery (principal); G81.94 Hemiplegia, unspecified affecting left nondominant side; N39.0 Urinary tract infection, site not specified; E11.9 Type 2 diabetes mellitus without complications; I10 Essential (primary) hypertension; B96.20 Unspecified Escherichia coli [E. coli] as the cause of diseases classified elsewhere; I48.0 Paroxysmal atrial fibrillation; R29.810 Facial weakness; H53.462 Homonymous bilateral field defects, left side; R47.81 Slurred speech; E66.9 Obesity, unspecified; Z68.38 Body mass index [BMI] 38.0-38.9, adult; M17.0 Bilateral primary osteoarthritis of knee; Z96.642 Presence of left artificial hip joint; I65.21 Occlusion and stenosis of right carotid artery

== ENCOUNTER 2016-07-31 14:13 | Inpatient (IN) | payer MEDICARE, OTHER ==
[2016-07-31 14:35] VITALS: BMI 38.2
[2016-07-31] MEDS ORDERED: Latanoprost 0.005% Opht SOUTION OU SCH (22:00)
[2016-07-31] MEDS: Docusate-Senna 50 mg-8.6 mg Tab PO SCH (22:15)
[2016-07-31] MEDS: TRAVOPROST OU SCH (23:03)
[2016-07-31] MEDS: [UNRECOGNIZED DRUG - OTHER] OU SCH (23:03)
[2016-08-01] MEDS: Enoxaparin 40 mg Syringe SC SCH (09:16)
[2016-08-01] MEDS: Lactobacillus Acidophilus 500 MU Cap PO SCH ×2 (09:21→16:50)
--- NOTE | 2016-08-01 17:29 | CP.PCM.CON ---
History of Present Illness - History of Present Illness History of Present Illness: Dr Ennis PMR consultation on Adrienne Farfan, born 1940, who has been admitted to [facility] for acute inpatient rehabilitation following a right CVA with left HP. There are associated behavioral changes as well. She was max A x2 in therapies today and not really able to answer questions in any clear fashion She is right hand dominant Lives with daughter who has back issues. Both are overweight Review of Systems - Review of Systems Systems not reviewed;Unavailable: Altered Mental Status Past Patient History - Past Medical History & Family History Past Medical History?: Yes - Past Social History Smoking Status: Never Smoked Alcohol: None Drugs: Denies Home Situation {Lives}: With Family - CARDIAC Hx Cardiac Disorders: Yes Hx Hypercholesterolemia: Yes Hx Hypertension: Yes - PULMONARY Hx Respiratory Disorders: No - NEUROLOGICAL HX Cerebrovascular Accident: Yes - HEENT Hx HEENT Problems: Yes Hx Glaucoma: Yes Other/Comment: (+) Left Homonymous Hemianopsia - RENAL Hx Chronic Kidney Disease: No - ENDOCRINE/METABOLIC Hx Diabetes Mellitus Type 2: Yes - HEMATOLOGICAL/ONCOLOGICAL Hx AIDS: No Hx Human Immunodeficiency Virus (HIV): No Hx Shingles: Yes - INTEGUMENTARY Hx Dermatological Problems: No - MUSCULOSKELETAL/RHEUMATOLOGICAL Hx Arthritis: Yes - GASTROINTESTINAL Hx Gastrointestinal Disorders: No - GENITOURINARY/GYNECOLOGICAL Hx Genitourinary Disorders: No Hx Incontinence: Yes Hx Urinary Tract Infection: Yes - PSYCHIATRIC Hx Psychophysiologic Disorder: No Hx Substance Use: No - SURGICAL HISTORY Hx Surgeries: Yes Hx Joint Replacement: Yes (Left THR 2012) Hx Musculoskeletal Surgery: Yes - ANESTHESIA Hx Anesthesia: Yes Hx Anesthesia Reactions: No Hx Malignant Hyperthermia: No Has any member of the family had a problem w/ anesthesia?: No Meds Allergies/Adverse Reactions: Allergies Allergy/AdvReac Type Severity Reaction Status Date / Time No Known Allergies Allergy Verified 10/28/14 13:18 - Medications Medications: Current Medications Acetaminophen (Tylenol 325mg Tab) 650 mg PO Q6 PRN PRN Reason: Pain, moderate (4-7) Last Admin: 08/01/16 06:34 Dose: 650 mg Aspirin (Aspirin) 325 mg PO DAILY [facility] Last Admin: 08/01/16 09:21 Dose: 325 mg Ciprofloxacin (Cipro) 500 mg PO Q12 [facility] Stop: 08/07/16 21:01 Last Admin: 08/01/16 09:18 Dose: 500 mg Clopidogrel Bisulfate (Plavix) 75 mg PO DAILY [facility] Last Admin: 08/01/16 09:18 Dose: 75 mg Docusate Sodium (Colace) 100 mg PO BID [facility] Last Admin: 08/01/16 16:50 Dose: 100 mg Enoxaparin Sodium (Lovenox) 40 mg SC DAILY [facility] PRN Reason: Protocol Last Admin: 08/01/16 09:16 Dose: 40 mg Home Med (Patient's Own Medication) 1 unit OU HS [facility] Last Admin: 07/31/16 23:03 Dose: 1 unit Ketorolac Tromethamine (Toradol) 10 mg PO BID PRN PRN Reason: Pain, severe (8-10) Lactobacillus Acidophilus (Bacid Acidophilus) 1 cap PO BID [facility] Last Admin: 08/01/16 16:50 Dose: 1 cap Lisinopril (Zestril) 20 mg PO DAILY [facility] Last Admin: 08/01/16 09:18 Dose: 20 mg Metoprolol Tartrate (Lopressor) 50 mg PO Q12 [facility] Last Admin: 08/01/16 09:17 Dose: 50 mg Senna/Docusate Sodium (Senokot S 50 Mg-8.6 Mg) 1 tab PO [facility] Last Admin: 07/31/16 22:15 Dose: 1 tab Physical Exam - Constitutional Appears: Confused - Head Exam Head Exam: ATRAUMATIC, NORMAL INSPECTION, NORMOCEPHALIC - Eye Exam Eye Exam: absent: Normal appearance (didn't open eyes fully) - ENT Exam ENT Exam: Mucous Membranes Moist - Respiratory Exam Respiratory Exam: NORMAL BREATHING PATTERN - Cardiovascular Exam Cardiovascular Exam: REGULAR RHYTHM - GI/Abdominal Exam GI & Abdominal Exam: Normal Bowel Sounds - Neurological Exam Neurological exam: Altered - Skin Skin Exam: Dry, Intact Results - Vital Signs Recent Vital Signs: Last Vital Signs Temp 97.9 F 08/01/16 16:14 Pulse 82 08/01/16 16:14 Resp 20 08/01/16 16:14 BP 146/54 L 08/01/16 16:14 Pulse Ox 97 08/01/16 16:14 - Labs Labs: Laboratory Results - last 24 hr 08/01/16 08/01/16 08/01/16 06:05 11:32 15:47 POC Glucose (mg/dL) 122 H 245 H 213 H Assessment & Plan - Assessment and Plan (Free Text) Assessment: 75 year old right hand dominant female who has been admitted to [facility] for acute CVA and left HP with behavioral issues associated with the CVA She will likely need PEDRO and will be 24 hour care if going home Plan: PT/OT/speech to continue to help increase functional independence Team conference for d/c planning Pain: controlled Vascular: no evidence of DVT GI: No evidence of constipation or diarrhea Patient is an excellent acute rehabilitation candidate and will have focused speech, PT, OT and recreational therapy to help facilitate a safe and appropriate d/c plan
--- NOTE | 2016-08-01 18:04 | CP.PCM.PN ---
Subjective - Date & Time of Evaluation Date of Evaluation: 08/01/16 Time of Evaluation: 18:03 - Subjective Subjective: right CVA left HP Objective - Vital Signs/Intake and Output Vital Signs (last 24 hours): Temp Pulse Resp BP Pulse Ox 97.9 F 82 20 146/54 L 97 08/01/16 16:14 08/01/16 16:14 08/01/16 16:14 08/01/16 16:14 08/01/16 16:14 - Medications Medications: Current Medications Acetaminophen (Tylenol 325mg Tab) 650 mg PO Q6 PRN PRN Reason: Pain, moderate (4-7) Last Admin: 08/01/16 06:34 Dose: 650 mg Aspirin (Aspirin) 325 mg PO DAILY [facility] Last Admin: 08/01/16 09:21 Dose: 325 mg Ciprofloxacin (Cipro) 500 mg PO Q12 [facility] Stop: 08/07/16 21:01 Last Admin: 08/01/16 09:18 Dose: 500 mg Clopidogrel Bisulfate (Plavix) 75 mg PO DAILY [facility] Last Admin: 08/01/16 09:18 Dose: 75 mg Docusate Sodium (Colace) 100 mg PO BID [facility] Last Admin: 08/01/16 16:50 Dose: 100 mg Enoxaparin Sodium (Lovenox) 40 mg SC DAILY [facility] PRN Reason: Protocol Last Admin: 08/01/16 09:16 Dose: 40 mg Home Med (Patient's Own Medication) 1 unit OU HS [facility] Last Admin: 07/31/16 23:03 Dose: 1 unit Ketorolac Tromethamine (Toradol) 10 mg PO BID PRN PRN Reason: Pain, severe (8-10) Lactobacillus Acidophilus (Bacid Acidophilus) 1 cap PO BID [facility] Last Admin: 08/01/16 16:50 Dose: 1 cap Lisinopril (Zestril) 20 mg PO DAILY [facility] Last Admin: 08/01/16 09:18 Dose: 20 mg Metoprolol Tartrate (Lopressor) 50 mg PO Q12 [facility] Last Admin: 08/01/16 09:17 Dose: 50 mg Senna/Docusate Sodium (Senokot S 50 Mg-8.6 Mg) 1 tab PO HS [facility] Last Admin: 07/31/16 22:15 Dose: 1 tab Physiatry Overall Plan of Care - Overall Plan of Care Estimated Length of Stay in Weeks: 3 Rehab Impairment: Mobility, Gait, Cognition, Speech, Balance, Coordination Etiologic Diagnosis: Cerebrovascular Accident Rehab/Medical Prognosis: Guarded - Anticipated Interventions Physical Therapy:: Yes Occupational Therapy:: Yes Speech Therapy:: Yes Recreational Therapy:: Yes - Therapy Goals Bed Mobility: Maximal Assistance Ambulation: Maximal Assistance Functional Positional Changes:: Maximal Assistance - Discharge Plan Identification of Barriers to Discharge: Cognition Discharge Destination: Subacute
[2016-08-01] MEDS: Docusate-Senna 50 mg-8.6 mg Tab PO SCH (21:28)
[2016-08-01] MEDS: TRAVOPROST OU SCH (21:29)
[2016-08-01] MEDS: [UNRECOGNIZED DRUG - OTHER] OU SCH (21:29)
[2016-08-02] MEDS: Enoxaparin 40 mg Syringe SC SCH (08:31)
[2016-08-02] MEDS: Lactobacillus Acidophilus 500 MU Cap PO SCH ×2 (09:00→16:37)
--- NOTE | 2016-08-02 11:45 | CP.PCM.PN ---
Subjective - Date & Time of Evaluation Date of Evaluation: 08/02/16 Time of Evaluation: 11:43 - Subjective Subjective: family c/o pt stared out to nowhere for ~2seconds EKG: done:AF family today c/o pt has headache when she coughs requests that Neuro revisit will re-consult Dr Howard Objective - Vital Signs/Intake and Output Vital Signs (last 24 hours): Temp Pulse Resp BP Pulse Ox 97.9 F 91 H 20 132/72 94 L 08/02/16 07:20 08/02/16 08:32 08/02/16 07:20 08/02/16 08:32 08/02/16 07:20 Intake and Output: 08/02/16 08/02/16 06:59 18:59 Intake Total 400 Output Total 600 Balance -200 - Medications Medications: Current Medications Acetaminophen (Tylenol 325mg Tab) 650 mg PO Q6 PRN PRN Reason: Pain, moderate (4-7) Last Admin: 08/01/16 23:33 Dose: 650 mg Aspirin (Aspirin) 325 mg PO DAILY [facility] Last Admin: 08/01/16 09:21 Dose: 325 mg Ciprofloxacin (Cipro) 500 mg PO Q12 [facility] Stop: 08/07/16 21:01 Last Admin: 08/02/16 08:32 Dose: 500 mg Clopidogrel Bisulfate (Plavix) 75 mg PO DAILY [facility] Last Admin: 08/02/16 08:35 Dose: 75 mg Docusate Sodium (Colace) 100 mg PO BID [facility] Last Admin: 08/02/16 08:33 Dose: 100 mg Enoxaparin Sodium (Lovenox) 40 mg SC DAILY [facility] PRN Reason: Protocol Last Admin: 08/02/16 08:31 Dose: 40 mg Home Med (Patient's Own Medication) 1 unit OU HS [facility] Last Admin: 08/01/16 21:29 Dose: 1 unit Ketorolac Tromethamine (Toradol) 10 mg PO BID PRN PRN Reason: Pain, severe (8-10) Lactobacillus Acidophilus (Bacid Acidophilus) 1 cap PO BID [facility] Last Admin: 08/01/16 16:50 Dose: 1 cap Lisinopril (Zestril) 20 mg PO DAILY [facility] Last Admin: 08/01/16 09:18 Dose: 20 mg Metoprolol Tartrate (Lopressor) 50 mg PO Q12 [facility] Last Admin: 08/02/16 08:32 Dose: 50 mg Senna/Docusate Sodium (Senokot S 50 Mg-8.6 Mg) 1 tab PO HS [facility] Last Admin: 08/01/16 21:28 Dose: 1 tab
[2016-08-02] MEDS: Docusate-Senna 50 mg-8.6 mg Tab PO SCH (21:22)
[2016-08-02] MEDS: [UNRECOGNIZED DRUG - OTHER] OU SCH (21:24)
[2016-08-02] MEDS: TRAVOPROST OU SCH (21:24)
--- NOTE | 2016-08-02 21:40 | CON ---
DATE: 08/02/2016 TIME OF EVALUATION: 5:15 p.m. NEUROLOGICAL PROBLEM: Dense left hemiplegia secondary to right MCA infarct secondary to cardioembolic phenomenon (paroxysmal atrial fibrillation). PHYSICAL EXAMINATION: VITAL SIGNS: Blood pressure 143/76, mean arterial pressure of 98, respiratory rate 20, temperature 98.1, pulse rate 82 and irregular. GENERAL: The patient is awake, alert, oriented to person and place. Complaining of headache when she coughs. She is also complaining of not able to move her bowel movement for the last few days. NEUROLOGIC EXAMINATION: Dense left homonymous hemianopsia and patient also neglecting her left side manifesting with anosognosia. Left side completely hemiplegic, areflexic. Plantars are upgoing on the left side. RECOMMENDATIONS: The patient should have DVT prophylaxis, continue dual antiplatelets with statin and APRIL inhibitors. Continue DVT prophylaxis. Continue active physical therapy as she has been getting it. Considering the embolic source for her stroke, long term care administrator oral anticoagulation is recommended. At that point Plavix can be discontinued. The patient may benefit putting on an SSRI for her stroke-related depression. The patient will be followed closely while she is in the hospital. Jose Howard MD cc: [id number] TT: 08/02/2016 18:17:33 Confirmation # [id number] Dictation # [id number] dn 08/02/2016 20:39:44 JESSICA
[2016-08-03 07:53] LABS: MEAN CELL VOLUME 86.1 fl (81.0-99.0); MEAN CORPUSCULAR HEMOGLOBIN 27.8 pg (27.0-31.0); MEAN CORPUSCULAR HGB CONC 32.3 g/dL (33.0-37.0); RED CELL DISTRIBUTION WIDTH 14.8 % (11.5-14.5); WHITE BLOOD COUNT 8.9 K/uL (4.8-10.8)
[2016-08-03] MEDS: Lactobacillus Acidophilus 500 MU Cap PO SCH ×2 (08:43→16:51)
[2016-08-03] MEDS: Enoxaparin 40 mg Syringe SC SCH (08:44)
[2016-08-03] MEDS: Docusate-Senna 50 mg-8.6 mg Tab PO SCH (21:36)
[2016-08-03] MEDS: TRAVOPROST OU SCH (21:39)
[2016-08-03] MEDS: [UNRECOGNIZED DRUG - OTHER] OU SCH (21:39)
[2016-08-04] MEDS: Lactobacillus Acidophilus 500 MU Cap PO SCH ×2 (08:33→17:34)
[2016-08-04] MEDS: Enoxaparin 40 mg Syringe SC SCH (08:34)
--- NOTE | 2016-08-04 10:07 | CARD ---
APPROVED REPORT EKG Measurement Heart [id number] <Conclusion> NSR nonspecific st changes
--- NOTE | 2016-08-04 11:09 | CP.PCM.HP ---
History of Present Illness - History of Present Illness History of Present Illness: Full Note Dictated. Lt hemiplegia due to cerebral Embolism due to A Fib HTN/DM(II) Chr exogenous obesity UTI Closed healing moisture related skin breakdown on gluteal fold Physical therapy/OT Present on Admission - Present on Admission Any Indicators Present on Admission: No History of DVT/PE: No History of Uncontrolled Diabetes: No Urinary Catheter: Yes (Being removed today) Decubitus Ulcer Present: No - Notes: Notes:: All questions answered. Past Patient History - Past Medical History & Family History Past Medical History?: Yes - Past Social History Smoking Status: Never Smoked Alcohol: None Drugs: Denies Home Situation {Lives}: With Family - CARDIAC Hx Cardiac Disorders: Yes Hx Hypercholesterolemia: Yes Hx Hypertension: Yes - PULMONARY Hx Respiratory Disorders: No - NEUROLOGICAL HX Cerebrovascular Accident: Yes - HEENT Hx HEENT Problems: Yes Hx Glaucoma: Yes Other/Comment: (+) Left Homonymous Hemianopsia - RENAL Hx Chronic Kidney Disease: No - ENDOCRINE/METABOLIC Hx Diabetes Mellitus Type 2: Yes - HEMATOLOGICAL/ONCOLOGICAL Hx AIDS: No Hx Human Immunodeficiency Virus (HIV): No Hx Shingles: Yes - INTEGUMENTARY Hx Dermatological Problems: No - MUSCULOSKELETAL/RHEUMATOLOGICAL Hx Arthritis: Yes - GASTROINTESTINAL Hx Gastrointestinal Disorders: No - GENITOURINARY/GYNECOLOGICAL Hx Genitourinary Disorders: No Hx Incontinence: Yes Hx Urinary Tract Infection: Yes - PSYCHIATRIC Hx Psychophysiologic Disorder: No Hx Substance Use: No - SURGICAL HISTORY Hx Surgeries: Yes Hx Joint Replacement: Yes (Left THR 2012) Hx Musculoskeletal Surgery: Yes - ANESTHESIA Hx Anesthesia: Yes Hx Anesthesia Reactions: No Hx Malignant Hyperthermia: No Has any member of the family had a problem w/ anesthesia?: No Meds Allergies/Adverse Reactions: Allergies Allergy/AdvReac Type Severity Reaction Status Date / Time No Known Allergies Allergy Verified 10/28/14 13:18 Results - Vital Signs Recent Vital Signs: Last Vital Signs Temp 96.9 F L 08/04/16 09:39 Pulse 93 H 08/04/16 09:39 Resp 22 08/04/16 09:39 BP 156/63 H 08/04/16 09:39 Pulse Ox 99 08/04/16 09:39 - Labs Result Diagrams: 08/03/16 05:30 Labs: Laboratory Results - last 24 hr 08/03/16 08/03/16 08/03/16 11:04 15:56 21:24 POC Glucose (mg/dL) 222 H 184 H 180 H 08/04/16 05:41 POC Glucose (mg/dL) 130 H
--- NOTE | 2016-08-04 11:34 | HP ---
She is hospitalized under my care in room 625 of rehabilitation unit. HISTORY OF PRESENT ILLNESS: This 75-year-old chronically overweight, hypertensive, diabetic female meredith mejía was hospitalized approximately 10 days back following a left hemiplegia as a consequence of cerebr al embolism due to atrial fibrillation. The patient has had supraventricular tachycardia off and on dating back to approximately 22-23 years. She has had hip replacements for osteoarthritis and arrive d in the hospital on the day of her hospitalization, when she woke up with a left hemiplegia. A urin e culture showed evidence of more than 100,000 colonies of E. coli and the patient had a Moreno cathet er inserted to keep her dry and was started on oral antibiotics. The patient has had a moisture-rela eugene skin breakdown on the left gluteal fold at the time of admission and continues to have this. Bec ause of the Moreno catheter she has remained dry. She has a dense left hemiplegia. During the initia l hospitalization, she had periods of bradycardia with pauses longer than 2 seconds. These eventuall y resolved after approximately 4 days and the patient now requires a beta lesly for rate control. Initially, she was started on aspirin and then Plavix. Now, she would be switched on to oral anticoa gulants. PHYSICAL EXAMINATION: GENERAL: Shows an elderly -Japanese female who is drowsy, but easily arousable, slightly conf used regarding her circumstances. VITAL SIGNS: Afebrile with a pulse rate of 80 beats per minute, irregularly irregular, and a blood p ressure of 138/74 mmHg. NECK: Her jugular venous pressure was not elevated. EXTREMITIES: There was no edema of lower extremities. The pedal pulses were well felt. There were no carotid bruits. HEART: The apex was not palpable. The first and second heart sounds were normal. There was a brief apical systolic murmur, no gallop rhythm. LUNGS: No rales. NEURO: There was a dense left hemiplegia. SKIN: Superficial skin breakdown related to moisture, which was healing was evident, the size of a n ickel on the left gluteal fold. IMPRESSION: At this time is dense Left hemiplegia secondary to cerebral embolism as a consequence of atrial fibrillation with a history of hypertension, diabetes type 2 which is well controlled, chroni c exogenous obesity, and status post hip replacement on the right side, chronic osteoarthritis of bot h knees. The patient will have her Moreno catheter removed. The nurses will make sure that she remai ns dry, and physical therapy will be initiated. Marco Myers MD cc: [id number] TT: 08/04/2016 11:34:27 jn
--- NOTE | 2016-08-04 13:49 | CON ---
DATE: 08/04/2016 As per family's request, they want another opinion on their mother. After reviewing the medical vishal rds of the neurology production support consultant as well as the primary care doctor, I agree with ongoing medical lakeisha farr. HISTORY OF PRESENTING ILLNESS: This is a 75-year-old -[place] woman with past medical histor y of atrial fibrillation, hypertension, diabetes mellitus, who apparently came to the hospital [place] could not get out of bed, was weak and found to have left-sided hemiplegia and underwent further wo rkup for CVA, where an MRI of the brain showed a right temporofrontal parietal lobe infarct, moderate size in the right MCA distribution. She does have left-sided neglect. She has a urinary tract infe ction and is on ciprofloxacin. She has dense left hemiplegia and undergoing physical and occupationa l therapy at the acute rehab floor at [facility] [place]. She has been having episodes of m ild delirium. Her blood sugars are stable. 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 Her A1c was 7.3. Currently, she has left side neglect and left hemiplegia. She is moving the right side without any difficulty. She has a mild right-sided headache. Daughter is a t bedside. PAST MEDICAL HISTORY: AFib, diabetes, hypertension. REVIEW OF SYSTEMS: A 14-point is negative except for the HPI. SOCIAL HISTORY: No illicit drug use, smoking, or ETOH abuse. ALLERGIES: No known drug allergies. FAMILY HISTORY: Noncontributory. CURRENT MEDICATIONS: Reviewed via nurse's reconciliation sheet. PHYSICAL EXAMINATION: VITAL SIGNS: Temperature of 96.9, pulse rate 93, blood pressure 156/63, respiratory rate of 22, oxyg en saturation 99% via room air. GENERAL: The patient is sitting up in bed, no acute distress. HEENT: Atraumatic, normocephalic. PERRLA. Extraocular muscles intact. NECK: Supple, no JVD, no adenopathy noted. LUNGS: Clear to auscultation. No adventitious sounds. HEART: Irregular rate and rhythm. No murmurs, rubs, or gallops. ABDOMEN: Soft, nontender, nondistended. Bowel sounds present. EXTREMITIES: No clubbing, no cyanosis. Peripheral pulses are 2+ felt bilaterally. NEUROLOGIC: The patient is alert, oriented to person and place and time. Speech is clear. Naming a nd repetition intact. She knows the front elevator operator. She knows the year. Cranial ne rves II-XII are intact except for right lateral gaze and some mild left facial droop. MOTOR: She has a dense left hemiplegia on the left and right upper and lower extremities are intact. Toes are upgoing bilaterally. SENSORY: Light touch, pinprick is decreased up to the calves bilaterally. Decreased vibration of th e toes. Has decreased light touch on the left side when compared to the right. She has sensory negl ect. The patient shows extinction to double simultaneous stimulation. DEEP TENDON REFLEXES: 1+ throughout and absent at the knees and ankles. COORDINATION AND GAIT: Deferred for now. LABORATORIES: A1c is 7.3 and glucose is 171 today. ASSESSMENT AND PLAN: This is a 75-year-old -[place] woman with history of hypertension, diab etes mellitus, atrial fibrillation, who had presented to the hospital with left dense hemiplegia and a left homonymous hemianopsia. 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 I recommend: 1. I agree with Dr. Myers as well as Dr. Howard to keep her on Xarelto 20 mg p.o. and a baby aspirin 81 mg for antiplatelet effect for stroke prevention considering she has also atrial fibrillation. 2. Keep her blood pressure between 130-140 mmHg and can get a goal of 120/ . 3. She needs intense physical, occupational therapy and mirror therapy since she has a left-sided he mineglect. I discussed with the daughter the plan at bedside thoroughly in detail and agree with marcie or neurologist. 4. For headaches, could consider gabapentin if needed if occurring daily, 100 mg p.o. at bedtime ada ly, and Tylenol p.r.n. if needed. 5. At this time, continue with current present medical management and also recommend a homocysteine level at this time. Thank you for this consult and followup. Jose Wu MD cc: [id number] TT: 08/04/2016 13:48:51 Confirmation # [id number] Dictation # [id number]
[2016-08-04] MEDS: Docusate-Senna 50 mg-8.6 mg Tab PO SCH (21:46)
[2016-08-04] MEDS: [UNRECOGNIZED DRUG - OTHER] OU SCH (21:48)
[2016-08-04] MEDS: TRAVOPROST OU SCH (21:48)
[2016-08-05 04:59] LABS: HOMOCYSTEINE 18.4 umol/L (<10.4)
[2016-08-05] MEDS: Lactobacillus Acidophilus 500 MU Cap PO SCH ×2 (09:32→17:52)
--- NOTE | 2016-08-05 13:11 | CP.PCM.PN ---
Subjective - Date & Time of Evaluation Date of Evaluation: 08/05/16 Time of Evaluation: 12:00 - Subjective Subjective: Sitting OOB in a chair, getting ready for afternoon session of PT Has a dense Lt hemiplegia Has been incontinent of urine and stool Nurses have been changing her to avoid bed sores HR 64BPM, Reg BP 142/70 mm Hg No signs of CHF Seen by dr. Wu Present Rx to continue Objective - Vital Signs/Intake and Output Vital Signs (last 24 hours): Temp Pulse Resp BP Pulse Ox 98.8 F 83 20 153/59 H 100 08/05/16 09:00 08/05/16 09:00 08/05/16 09:00 08/05/16 09:35 08/04/16 19:51 Intake and Output: 08/05/16 08/05/16 06:59 18:59 Intake Total 100 Balance 100 - Medications Medications: Current Medications Acetaminophen (Tylenol 325mg Tab) 650 mg PO Q6 PRN PRN Reason: Pain, moderate (4-7) Last Admin: 08/03/16 23:06 Dose: 650 mg Aspirin (Ecotrin) 81 mg PO DAILY [facility] Last Admin: 08/05/16 09:33 Dose: 81 mg Ciprofloxacin (Cipro) 500 mg PO Q12 [facility] Stop: 08/07/16 21:01 Last Admin: 08/05/16 09:33 Dose: 500 mg Docusate Sodium (Colace) 100 mg PO BID [facility] Last Admin: 08/05/16 09:32 Dose: 100 mg Home Med (Patient's Own Medication) 1 unit OU HS [facility] Last Admin: 08/04/16 21:48 Dose: 1 unit Ketorolac Tromethamine (Toradol) 10 mg PO BID PRN PRN Reason: Pain, severe (8-10) Lactobacillus Acidophilus (Bacid Acidophilus) 1 cap PO BID [facility] Last Admin: 08/05/16 09:32 Dose: 1 cap Lisinopril (Zestril) 20 mg PO DAILY [facility] Last Admin: 08/05/16 09:33 Dose: 20 mg Metoprolol Tartrate (Lopressor) 50 mg PO Q12 [facility] Last Admin: 08/05/16 09:35 Dose: 50 mg Rivaroxaban (Xarelto) 20 mg PO QD5 [facility] PRN Reason: Protocol Last Admin: 08/05/16 09:42 Dose: Not Given Senna/Docusate Sodium (Senokot S 50 Mg-8.6 Mg) 1 tab PO HS [facility] Last Admin: 08/04/16 21:46 Dose: 1 tab Sertraline HCl (Zoloft) 25 mg PO HS [facility] Last Admin: 08/04/16 21:47 Dose: 25 mg - Labs Labs: 08/03/16 05:30
--- NOTE | 2016-08-05 13:17 | PSY.TMCNF ---
Nursing - Vital Signs Vital Signs (Last 8 hours): Vital Signs 08/05/16 08/05/16 08/05/16 09:00 09:33 09:35 Temperature 98.8 F Pulse Rate 83 Respiratory 20 Rate Blood Pressure 153/59 H 153/59 H 153/59 H Pain: 0 - Precautions: Precautions: Fall Prevention, Aspiration, Cardiac/Pulmonary - Medications/Other Issues Comment: To start on Xarelto today. - Consults Comment: Dr. Ennis, Dr. Howard, Dr. Wu - Toileting Toileting: Dependent - Bladder Management Bladder Pattern: Incontinent Voiding Method: Bedpan, Diaper Bladder Management: Dependent Frequency of Accidents: >5 - Bowel Management Bowel Pattern: Incontinent Bowel Management: Dependent Frequency of Accidents: >5 - Transfers Transfers: Dependent - ADL's ADL's: Dependent - Pain Management Comments: On Tylenol and Toradol PRN for pain - Patient/Family Teaching Comments: Care post CVA and safety precautions - Goals/Time Frame Comments: Per multidisciplinary care plan and goals Physical Therapy - Bed Mobility Bed Mobility: Verbal Cues, Maximum Assistance - Transfers Sit to Stand: Verbal Cues, Maximum Assistance - Ambulation Assistive Devices: N/A - Stair Negotiation Stairs: Level of Assistance: Not Tested - Standing Balance Static Stand: Maximal Assistance Dynamic Stand: Dependent - Pain Pain (assessed during therapy session): 7 Management Techniques: Position Change Comment: Back - Insight/Carryover Insight/Carryover: Good - Patient/Family Education Comment: the patient's daughter and froiend observed todays session. Reviewed some treatment ideas to help with neglect and encouraged active use of the LLE. - Assessment/Plan Assessment: Pt requires mod-max verbal cues to participate in recreation therapy sessions 2' fatigue and decrease arousal. Pt would benefit from recreation therapy sessions to improve command following, visual scanning on the L side, and problem solving. Pt presents with poor insight of deficits. - Goals Timeframe: 1 week Goals: bed mobility: moderate assistance. transfers: moderate assistance. gait : 10' with Hallway rail. Sitting balance: supervision - Provider Therapist: Samantha BOSTON RN CRRN Occupational Therapy - Arousal/Attention/Orientation Patient Orientation: Person, Place - ADL/IADL Self Feeding: Verbal Cues, Set-up Help, Minimal Assistance Grooming: Verbal Cues, Set-up Help, Maximum Assistance Bathing-Upper Extremity: Dependent Bathing-Lower Extremity: Dependent Dressing-Upper Extremity: Dependent Dressing-Lower Extremity: Dependent Comment: Pt needs 2 person assist for bed mobility/positioning for bathing/ toilet and w/c transfers. Slide board transfers to bed with 2 person assist seems easier/safer for pt and staff - Sitting Balance Static Sitting: Maximal Assistance Dynamic Sitting: Maximal Assistance Comment: unsupported - Transfers Wheelchair to Bed Transfers: Dependent Toilet Transfers: Dependent - Upper Extremity Status Left Upper Extremity Comment: PROM IS WNLS, but NO AROM noted at this time - Pain Pain (assessed during therapy session): 7 Alleviating Techniques: Position Change Comment: Back - Insight/Carryover Insight/Carryover: Good - Patient/Family Education Comment: the patient's daughter and froiend observed todays session. Reviewed some treatment ideas to help with neglect and encouraged active use of the LLE. - Assessment/Plan Assessment: Pt requires mod-max verbal cues to participate in recreation therapy sessions 2' fatigue and decrease arousal. Pt would benefit from recreation therapy sessions to improve command following, visual scanning on the L side, and problem solving. Pt presents with poor insight of deficits. - Goals Timeframe: 1 week Goals: bed mobility: moderate assistance. transfers: moderate assistance. gait : 10' with Hallway rail. Sitting balance: supervision - Provider Therapist: carla obregon License Number: [id number] Speech Therapy - Consult Information Patient on Program: Yes Medical Diagnosis: CVA Treatment Diagnosis: mild dysarthria. moderate cognitive-lingusitic deficits. moderate oropharyngeal dysphagia - Assessment Problem Solving Impairment: Moderate Memory Impairment: Moderate Speech/Articulation Impairment: Mild Dysphagia/Swallowing Impairment: Moderate - Plan Assessment: Pt requires mod-max verbal cues to participate in recreation therapy sessions 2' fatigue and decrease arousal. Pt would benefit from recreation therapy sessions to improve command following, visual scanning on the L side, and problem solving. Pt presents with poor insight of deficits. - Provider Therapist: Kiki Raman License Number: [id number] Recreational Therapy - Participation Participation: Monitors His/Her Own Leisure Time - Attendance Attendance: Daily - Activities Leisure Activities: Television - Socialization Level of Socialization: Initiates/interacts with caregivers but not with peer, Responds freely, but does not initiate - Assessment Assessment/Plan: Pt requires mod-max verbal cues to participate in recreation therapy sessions 2' fatigue and decrease arousal. Pt would benefit from recreation therapy sessions to improve command following, visual scanning on the L side, and problem solving. Pt presents with poor insight of deficits. Problems Currently Limiting Participation: decrease safety awareness, poor insight of deficits, L side neglect, decrease activity tolerance level Goals and Time Frame: Pt will be encouraged to participate in 1:1 and group recreation therapy sessions 3-5x week to improve L side visual attention, attention to task, direction following, and problem solving levels. - Provider Therapist: Shelley Buchanan, [employer] #[id number] Nutrition - Current Diet Current Diet/ Supplement/ Feedings: Pureed thin liquids - Appetite Percent Meal Consumed: 50-74% - Comments Comments: Care post CVA and safety precautions - Assessment/Goals/Time Frame Assessment/Goals/Time Frame: To start on Xarelto today. - Provider Provider: Suki Jefferson RD Rehabilitation Plan - Discharge Plan Estimated Date of Discharge: 08/24/16 Discharge to: Subacute
--- NOTE | 2016-08-05 18:17 | CP.PCM.PN ---
Subjective - Date & Time of Evaluation Date of Evaluation: 08/05/16 Time of Evaluation: 13:00 - Subjective Subjective: Patient seen in room groggy and not able to hold conversation for too long denies pain continue current care She will clearly need PEDRO and possibly LTC as well Objective - Vital Signs/Intake and Output Vital Signs (last 24 hours): Temp Pulse Resp BP Pulse Ox 97.4 F L 88 20 141/75 100 08/05/16 10:00 08/05/16 16:18 08/05/16 16:18 08/05/16 16:18 08/05/16 16:18 Intake and Output: 08/05/16 08/05/16 06:59 18:59 Intake Total 100 Balance 100 - Medications Medications: Current Medications Acetaminophen (Tylenol 325mg Tab) 650 mg PO Q6 PRN PRN Reason: Pain, moderate (4-7) Last Admin: 08/03/16 23:06 Dose: 650 mg Aspirin (Ecotrin) 81 mg PO DAILY [facility] Last Admin: 08/05/16 09:33 Dose: 81 mg Ciprofloxacin (Cipro) 500 mg PO Q12 [facility] Stop: 08/07/16 21:01 Last Admin: 08/05/16 09:33 Dose: 500 mg Docusate Sodium (Colace) 100 mg PO BID [facility] Last Admin: 08/05/16 17:52 Dose: 100 mg Home Med (Patient's Own Medication) 1 unit OU [facility] Last Admin: 08/04/16 21:48 Dose: 1 unit Ketorolac Tromethamine (Toradol) 10 mg PO BID PRN PRN Reason: Pain, severe (8-10) Lactobacillus Acidophilus (Bacid Acidophilus) 1 cap PO BID [facility] Last Admin: 08/05/16 17:52 Dose: 1 cap Lisinopril (Zestril) 20 mg PO DAILY [facility] Last Admin: 08/05/16 09:33 Dose: 20 mg Metoprolol Tartrate (Lopressor) 50 mg PO Q12 [facility] Last Admin: 08/05/16 09:35 Dose: 50 mg Rivaroxaban (Xarelto) 20 mg PO QD5 [facility] PRN Reason: Protocol Last Admin: 08/05/16 17:52 Dose: 20 mg Senna/Docusate Sodium (Senokot S 50 Mg-8.6 Mg) 1 tab PO HS [facility] Last Admin: 08/04/16 21:46 Dose: 1 tab Sertraline HCl (Zoloft) 25 mg PO HS [facility] Last Admin: 08/04/16 21:47 Dose: 25 mg - Labs Labs: 08/03/16 05:30
[2016-08-05] MEDS: Docusate-Senna 50 mg-8.6 mg Tab PO SCH (21:28)
[2016-08-05] MEDS: [UNRECOGNIZED DRUG - OTHER] OU SCH ×2 (21:31→21:40)
[2016-08-05] MEDS: TRAVOPROST OU SCH ×2 (21:31→21:40)
[2016-08-06] MEDS: Lactobacillus Acidophilus 500 MU Cap PO SCH ×3 (08:24→22:13)
--- NOTE | 2016-08-06 09:06 | CP.PCM.PN ---
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 Dense Lt hemiplegia Participates in speech Rx and swollowing eval and excercises Vital signs stable 2 more days of Cipro then will recheck urine for persistent UTI Objective - Vital Signs/Intake and Output Vital Signs (last 24 hours): Temp Pulse Resp BP Pulse Ox 97.6 F 83 19 130/66 96 08/06/16 08:32 08/06/16 08:32 08/06/16 08:32 08/06/16 08:32 08/06/16 08:32 - Medications Medications: Current Medications Acetaminophen (Tylenol 325mg Tab) 650 mg PO Q6 PRN PRN Reason: Pain, moderate (4-7) Last Admin: 08/03/16 23:06 Dose: 650 mg Aspirin (Ecotrin) 81 mg PO DAILY [facility] Last Admin: 08/06/16 08:24 Dose: 81 mg Ciprofloxacin (Cipro) 500 mg PO Q12 [facility] Stop: 08/07/16 21:01 Last Admin: 08/06/16 08:24 Dose: 500 mg Docusate Sodium (Colace) 100 mg PO BID [facility] Last Admin: 08/06/16 08:24 Dose: 100 mg Home Med (Patient's Own Medication) 1 unit OU [facility] Last Admin: 08/05/16 21:40 Dose: 1 unit Ketorolac Tromethamine (Toradol) 10 mg PO BID PRN PRN Reason: Pain, severe (8-10) Lactobacillus Acidophilus (Bacid Acidophilus) 1 cap PO BID [facility] Last Admin: 08/06/16 08:24 Dose: 1 cap Lisinopril (Zestril) 20 mg PO DAILY [facility] Last Admin: 08/06/16 08:25 Dose: 20 mg Metoprolol Tartrate (Lopressor) 50 mg PO Q12 [facility] Last Admin: 08/06/16 08:24 Dose: 50 mg Rivaroxaban (Xarelto) 20 mg PO QD5 [facility] PRN Reason: Protocol Last Admin: 08/05/16 17:52 Dose: 20 mg Senna/Docusate Sodium (Senokot S 50 Mg-8.6 Mg) 1 tab PO [facility] Last Admin: 03/21/17 21:28 Dose: 1 tab Sertraline HCl (Zoloft) 25 mg PO HS [facility] Last Admin: 08/05/16 21:29 Dose: 25 mg - Labs Labs: 08/03/16 05:30
[2016-08-06] MEDS: [UNRECOGNIZED DRUG - OTHER] OU SCH (22:18)
[2016-08-06] MEDS: TRAVOPROST OU SCH (22:18)
[2016-08-06] MEDS: Docusate-Senna 50 mg-8.6 mg Tab PO SCH (22:19)
[2016-08-07] MEDS: Lactobacillus Acidophilus 500 MU Cap PO SCH ×2 (08:46→21:15)
[2016-08-07] MEDS: Docusate-Senna 50 mg-8.6 mg Tab PO SCH (21:15)
[2016-08-07] MEDS: [UNRECOGNIZED DRUG - OTHER] OU SCH (21:22)
[2016-08-07] MEDS: TRAVOPROST OU SCH (21:22)
[2016-08-08] MEDS: Lactobacillus Acidophilus 500 MU Cap PO SCH ×2 (09:33→21:46)
--- NOTE | 2016-08-08 14:15 | CP.PCM.PN ---
Subjective - Date & Time of Evaluation Date of Evaluation: 08/08/16 Time of Evaluation: 12:30 - Subjective Subjective: Pt seen bedside OOB in a wheelchair, has just returned from PT Appears tired Has been swollowing food well, no aspiration Will D/C Cipro now and check U/C Objective - Vital Signs/Intake and Output Vital Signs (last 24 hours): Temp Pulse Resp BP Pulse Ox 98 F 80 20 130/70 98 08/08/16 12:54 08/08/16 12:54 08/08/16 12:54 08/08/16 12:54 08/08/16 12:54 - Medications Medications: Current Medications Acetaminophen (Tylenol 325mg Tab) 650 mg PO Q6 PRN PRN Reason: Pain, moderate (4-7) Last Admin: 08/08/16 12:54 Dose: 650 mg Aspirin (Ecotrin) 81 mg PO DAILY [facility] Last Admin: 08/08/16 09:17 Dose: 81 mg Ciprofloxacin (Cipro) 500 mg PO Q12 [facility] Stop: 08/08/16 21:01 Last Admin: 08/08/16 09:17 Dose: 500 mg Docusate Sodium (Colace) 100 mg PO Q12 [facility] Last Admin: 08/08/16 09:17 Dose: 100 mg Home Med (Patient's Own Medication) 1 unit OU HS [facility] Last Admin: 08/07/16 21:22 Dose: 1 unit Ketorolac Tromethamine (Toradol) 10 mg PO BID PRN PRN Reason: Pain, severe (8-10) Lactobacillus Acidophilus (Bacid Acidophilus) 1 cap PO Q12 [facility] Last Admin: 08/08/16 09:33 Dose: 1 cap Lisinopril (Zestril) 20 mg PO DAILY [facility] Last Admin: 08/08/16 09:18 Dose: 20 mg Metoprolol Tartrate (Lopressor) 50 mg PO Q12 [facility] Last Admin: 08/08/16 09:17 Dose: 50 mg Rivaroxaban (Xarelto) 20 mg PO DAILY [facility] PRN Reason: Protocol Last Admin: 08/08/16 09:18 Dose: 20 mg Senna/Docusate Sodium (Senokot S 50 Mg-8.6 Mg) 1 tab PO HS [facility] Last Admin: 08/07/16 21:15 Dose: 1 tab Sertraline HCl (Zoloft) 25 mg PO HS [facility] Last Admin: 08/07/16 21:22 Dose: 25 mg - Labs Labs: 08/03/16 05:30
--- NOTE | 2016-08-08 16:29 | CP.PCM.PN ---
Subjective - Date & Time of Evaluation Date of Evaluation: 08/08/16 Time of Evaluation: 16:28 - Subjective Subjective: Patient seen in room offered no complaints NAD Max A to dependent will discuss during teams next week Objective - Vital Signs/Intake and Output Vital Signs (last 24 hours): Temp Pulse Resp BP Pulse Ox 98 F 80 20 130/70 98 08/08/16 12:54 08/08/16 12:54 08/08/16 12:54 08/08/16 12:54 08/08/16 12:54 - Medications Medications: Current Medications Acetaminophen (Tylenol 325mg Tab) 650 mg PO Q6 PRN PRN Reason: Pain, moderate (4-7) Last Admin: 08/08/16 12:54 Dose: 650 mg Aspirin (Ecotrin) 81 mg PO DAILY [facility] Last Admin: 08/08/16 09:17 Dose: 81 mg Ciprofloxacin (Cipro) 500 mg PO Q12 [facility] Stop: 08/08/16 21:01 Last Admin: 08/08/16 09:17 Dose: 500 mg Docusate Sodium (Colace) 100 mg PO Q12 [facility] Last Admin: 08/08/16 09:17 Dose: 100 mg Home Med (Patient's Own Medication) 1 unit OU [facility] Last Admin: 08/07/16 21:22 Dose: 1 unit Ketorolac Tromethamine (Toradol) 10 mg PO BID PRN PRN Reason: Pain, severe (8-10) Lactobacillus Acidophilus (Bacid Acidophilus) 1 cap PO Q12 [facility] Last Admin: 08/08/16 09:33 Dose: 1 cap Lisinopril (Zestril) 20 mg PO DAILY [facility] Last Admin: 08/08/16 09:18 Dose: 20 mg Metoprolol Tartrate (Lopressor) 50 mg PO Q12 [facility] Last Admin: 08/08/16 09:17 Dose: 50 mg Rivaroxaban (Xarelto) 20 mg PO DAILY [facility] PRN Reason: Protocol Last Admin: 08/08/16 09:18 Dose: 20 mg Senna/Docusate Sodium (Senokot S 50 Mg-8.6 Mg) 1 tab PO HS [facility] Last Admin: 08/07/16 21:15 Dose: 1 tab Sertraline HCl (Zoloft) 25 mg PO [facility] Last Admin: 08/07/16 21:22 Dose: 25 mg - Labs Labs: 08/03/16 05:30
[2016-08-08] MEDS: TRAVOPROST OU SCH (21:47)
[2016-08-08] MEDS: Docusate-Senna 50 mg-8.6 mg Tab PO SCH (21:47)
[2016-08-08] MEDS: [UNRECOGNIZED DRUG - OTHER] OU SCH (21:47)
[2016-08-09 08:27] LABS: ALB/GLOB RATIO 0.9 (1.0-2.1); ALKALINE PHOSPHATASE 91 U/L (38-126); ALT/SGPT 35 U/L (9-52); AST/SGOT 25 U/L (14-36); BILIRUBIN,TOTAL 1.1 mg/dl (0.2-1.3); BLOOD UREA NITROGEN 16 mg/dl (7-17); CALCIUM 9.1 mg/dL (8.4-10.2); CARBON DIOXIDE 25 mmol/L (22-30); CHLORIDE 105 mmol/L (98-107); GFR AFRICAN-AMERICAN > 60; GLUCOSE,RANDOM 177 mg/dL (65-105); SODIUM 141 mmol/l (132-148); TOTAL PROTEIN 6.6 G/DL (6.3-8.2)
[2016-08-09] MEDS: Lactobacillus Acidophilus 500 MU Cap PO SCH ×2 (09:41→21:45)
--- NOTE | 2016-08-09 12:13 | CP.PCM.PN ---
Subjective - Date & Time of Evaluation Date of Evaluation: 08/09/16 Time of Evaluation: 12:00 - Subjective Subjective: Resting in bed comfortable HR 78 BPM/Irreg BP 136/70 mm Hg No signs of CHF Dense Lt hemiplegia Urinary incontinence++/Mostly continent of stool Accu checks noted Lt knee: Swelling+, no pain or tenderness ?? Subcut bleeding while on Xarelto Will get a CT Objective - Vital Signs/Intake and Output Vital Signs (last 24 hours): Temp Pulse Resp BP Pulse Ox 98.2 F 71 20 146/80 99 08/09/16 10:00 08/09/16 10:00 08/09/16 10:00 08/09/16 10:00 08/09/16 10:00 - Medications Medications: Current Medications Acetaminophen (Tylenol 325mg Tab) 650 mg PO Q6 PRN PRN Reason: Pain, moderate (4-7) Last Admin: 08/08/16 12:54 Dose: 650 mg Aspirin (Ecotrin) 81 mg PO DAILY [facility] Last Admin: 08/09/16 09:41 Dose: 81 mg Docusate Sodium (Colace) 100 mg PO Q12 [facility] Last Admin: 08/09/16 09:41 Dose: 100 mg Home Med (Patient's Own Medication) 1 unit OU [facility] Last Admin: 08/08/16 21:47 Dose: 1 unit Lactobacillus Acidophilus (Bacid Acidophilus) 1 cap PO Q12 [facility] Last Admin: 08/09/16 09:41 Dose: 1 cap Lisinopril (Zestril) 20 mg PO DAILY [facility] Last Admin: 08/09/16 09:42 Dose: 20 mg Metoprolol Tartrate (Lopressor) 50 mg PO Q12 [facility] Last Admin: 08/09/16 09:41 Dose: 50 mg Rivaroxaban (Xarelto) 20 mg PO DAILY [facility] PRN Reason: Protocol Last Admin: 08/09/16 09:42 Dose: 20 mg Senna/Docusate Sodium (Senokot S 50 Mg-8.6 Mg) 1 tab PO [facility] Last Admin: 08/08/16 21:47 Dose: 1 tab Sertraline HCl (Zoloft) 25 mg PO [facility] Last Admin: 08/08/16 21:47 Dose: 25 mg - Labs Labs: 08/03/16 05:30 08/09/16 07:00
[2016-08-09] MEDS: Docusate-Senna 50 mg-8.6 mg Tab PO SCH (21:37)
[2016-08-09] MEDS: TRAVOPROST OU SCH (21:46)
[2016-08-09] MEDS: [UNRECOGNIZED DRUG - OTHER] OU SCH (21:46)
--- NOTE | 2016-08-10 07:19 | CT ---
PROCEDURE: HISTORY: Swelling of Lt Knee COMPARISON: TECHNIQUE: FINDINGS: There is severe tricompartmental osteoarthritis with marginal spur formation and vacuum phenomenon in the medial compartment. No acute fracture is observed. There is extensive circumferential soft tissue swelling. There is no significant joint effusion. IMPRESSION: Severe tricompartmental osteoarthritis. No fracture.
--- NOTE | 2016-08-10 08:55 | CP.PCM.PN ---
Subjective - Date & Time of Evaluation Date of Evaluation: 08/10/16 Time of Evaluation: 08:45 - Subjective Subjective: Clinically unchanged A Fib at 78 BPM/BP 136/70 mm HG No signs of CHF Accu checks are high, now that pt has started to eat predictably Will start on Metformin 500mg BID (as she used to take as out pt) Lt knee CT shows severe soft tissue swelling due to OA Will request Dr. Ennis to address it. Objective - Vital Signs/Intake and Output Vital Signs (last 24 hours): Temp Pulse Resp BP Pulse Ox 98.2 F 90 20 119/75 99 08/09/16 21:34 08/09/16 21:34 08/09/16 21:34 08/09/16 21:34 08/09/16 21:34 - Medications Medications: Current Medications Acetaminophen (Tylenol 325mg Tab) 650 mg PO Q6 PRN PRN Reason: Other Aspirin (Ecotrin) 81 mg PO DAILY [facility] Last Admin: 08/09/16 09:41 Dose: 81 mg Docusate Sodium (Colace) 100 mg PO Q12 [facility] Last Admin: 08/09/16 21:36 Dose: 100 mg Home Med (Patient's Own Medication) 1 unit OU [facility] Last Admin: 08/09/16 21:46 Dose: 1 unit Lisinopril (Zestril) 20 mg PO DAILY [facility] Last Admin: 08/09/16 09:42 Dose: 20 mg Metformin HCl (Glucophage) 500 mg PO BIDWM [facility] Metoprolol Tartrate (Lopressor) 50 mg PO Q12 [facility] Last Admin: 08/09/16 21:34 Dose: 50 mg Rivaroxaban (Xarelto) 20 mg PO DAILY [facility] PRN Reason: Protocol Last Admin: 08/09/16 09:42 Dose: 20 mg Senna/Docusate Sodium (Senokot S 50 Mg-8.6 Mg) 1 tab PO HS [facility] Last Admin: 08/09/16 21:37 Dose: 1 tab Sertraline HCl (Zoloft) 25 mg PO HS [facility] Last Admin: 08/09/16 21:38 Dose: 25 mg - Labs Labs: 08/03/16 05:30 08/09/16 07:00
[2016-08-10] MEDS: Docusate-Senna 50 mg-8.6 mg Tab PO SCH (21:11)
[2016-08-10] MEDS: TRAVOPROST OU SCH (21:11)
[2016-08-10] MEDS: [UNRECOGNIZED DRUG - OTHER] OU SCH (21:11)
--- NOTE | 2016-08-11 09:17 | CP.PCM.PN ---
Subjective - Date & Time of Evaluation Date of Evaluation: 08/11/16 Time of Evaluation: 08:55 - Subjective Subjective: Appears fatigued after a good night's sleep Dense Lt hemiplegia Swollows well (Speech therapists rec upgrading to finely chopped food) A Fib at 80 BPM BP 134/70 mm Hg No rales, no gallop Urine sent today for C/S, 3days after Cipro was D/Scott Lt knee swollen, not painful (will be seen by Dr. Whatley) On Xarelto Objective - Vital Signs/Intake and Output Vital Signs (last 24 hours): Temp Pulse Resp BP Pulse Ox 98.1 F 91 H 20 123/60 100 08/11/16 08:12 08/11/16 09:00 08/11/16 08:12 08/11/16 09:00 08/11/16 08:12 - Medications Medications: Current Medications Acetaminophen (Tylenol 325mg Tab) 650 mg PO Q6 PRN PRN Reason: Other Aspirin (Ecotrin) 81 mg PO DAILY [facility] Last Admin: 08/11/16 09:00 Dose: 81 mg Docusate Sodium (Colace) 100 mg PO Q12 [facility] Last Admin: 08/11/16 08:59 Dose: 100 mg Home Med (Patient's Own Medication) 1 unit OU [facility] Last Admin: 08/10/16 21:11 Dose: 1 unit Lisinopril (Zestril) 20 mg PO DAILY [facility] Last Admin: 08/11/16 09:00 Dose: 20 mg Metformin HCl (Glucophage) 500 mg PO BIDWM [facility] Last Admin: 08/11/16 09:00 Dose: 500 mg Metoprolol Tartrate (Lopressor) 50 mg PO Q12 [facility] Last Admin: 08/11/16 09:00 Dose: 50 mg Rivaroxaban (Xarelto) 20 mg PO QD5 [facility] PRN Reason: Protocol Last Admin: 08/11/16 09:00 Dose: 20 mg Senna/Docusate Sodium (Senokot S 50 Mg-8.6 Mg) 1 tab PO [facility] Last Admin: 08/10/16 21:11 Dose: 1 tab Sertraline HCl (Zoloft) 25 mg PO [facility] Last Admin: 08/10/16 21:11 Dose: 25 mg - Labs Labs: 08/03/16 05:30 08/09/16 07:00
[2016-08-11] MEDS: Docusate-Senna 50 mg-8.6 mg Tab PO SCH (21:33)
[2016-08-11] MEDS: TRAVOPROST OU SCH (21:35)
[2016-08-11] MEDS: [UNRECOGNIZED DRUG - OTHER] OU SCH (21:35)
--- NOTE | 2016-08-12 08:59 | CP.PCM.PN ---
Subjective - Date & Time of Evaluation Date of Evaluation: 08/12/16 Time of Evaluation: 08:35 - Subjective Subjective: Eating breakfast under the watchful eye of speech therapist A Fib at 78 BPM/BP 138/76 mm Hg Chest clear, no rales Lt knee continues to be swollen (No pain or tenderness present) Urine C/S sent yesterdat, results awaited Objective - Vital Signs/Intake and Output Vital Signs (last 24 hours): Temp Pulse Resp BP Pulse Ox 97.9 F 98 H 20 126/56 L 100 08/12/16 07:44 08/12/16 07:44 08/12/16 07:44 08/12/16 07:44 08/12/16 07:44 - Medications Medications: Current Medications Acetaminophen (Tylenol 325mg Tab) 650 mg PO Q6 PRN PRN Reason: Other Aspirin (Ecotrin) 81 mg PO DAILY [facility] Last Admin: 08/11/16 09:00 Dose: 81 mg Docusate Sodium (Colace) 100 mg PO Q12 [facility] Last Admin: 08/11/16 21:33 Dose: 100 mg Home Med (Patient's Own Medication) 1 unit OU HS [facility] Last Admin: 08/11/16 21:35 Dose: 1 unit Lisinopril (Zestril) 20 mg PO DAILY [facility] Last Admin: 08/11/16 09:00 Dose: 20 mg Metformin HCl (Glucophage) 500 mg PO 0900,1999 [facility] Last Admin: 08/11/16 21:33 Dose: 500 mg Metoprolol Tartrate (Lopressor) 50 mg PO Q12 [facility] Last Admin: 08/11/16 21:34 Dose: 50 mg Rivaroxaban (Xarelto) 20 mg PO DAILY [facility] PRN Reason: Protocol Senna/Docusate Sodium (Senokot S 50 Mg-8.6 Mg) 1 tab PO HS [facility] Last Admin: 08/11/16 21:33 Dose: 1 tab Sertraline HCl (Zoloft) 25 mg PO HS [facility] Last Admin: 08/11/16 21:33 Dose: 25 mg - Labs Labs: 08/03/16 05:30 08/09/16 07:00
--- NOTE | 2016-08-12 13:15 | PSY.TMCNF ---
Nursing - Vital Signs Vital Signs (Last 8 hours): Vital Signs 08/12/16 08/12/16 08/12/16 07:44 09:00 09:08 Temperature 97.9 F 97.9 F Pulse Rate 98 H 98 H 98 H Respiratory 20 20 Rate Blood Pressure 126/56 L 126/56 L 126/56 L O2 Sat by Pulse 100 Oximetry Pain: 0 - Precautions: Precautions: Fall Prevention, Aspiration, Cardiac/Pulmonary - Medications/Other Issues Comment: Poor appetite, left knee swelling. - Consults Comment: Dr. Ennis, Dr. Howard, Dr. Wu - Toileting Toileting: Dependent - Bladder Management Bladder Pattern: Normal Voiding Method: Bedpan Bladder Management: Maximal Assistance - Bowel Management Bowel Pattern: Incontinent Bowel Management: Dependent - Transfers Transfers: Dependent - ADL's ADL's: Dependent - Pain Management Comments: Denies pain - Patient/Family Teaching Comments: Care post CVA and safety precautions - Goals/Time Frame Comments: Per multidisciplinary care plan and goals Physical Therapy - Bed Mobility Bed Mobility: Verbal Cues, Maximum Assistance - Transfers Sit to Stand: Verbal Cues, Maximum Assistance - Ambulation Level of Assistance: Maximum Assistance - Stair Negotiation Stairs: Level of Assistance: Not Tested - Standing Balance Static Stand: Maximal Assistance Dynamic Stand: Dependent - Pain Pain (assessed during therapy session): 7 Management Techniques: Position Change Comment: Back - Insight/Carryover Insight/Carryover: Poor - Patient/Family Education Comment: the patient's daughter and friend observed Physical and Occupational therapy sessions. EDU provided for POC, ADLs, transfers, cognition, vision, safety - ongoing. - Assessment/Plan Assessment: Pt continues to require max verbal cues to participate in recreation therapy sessions. Pt's participation is limited by decrease sitting in wheelchair tolerance, decrease arousal, and decrease attention to task. Pt participates in leisure tasks during therapy sessions to improve attention to task and decrease outside stimuli or pain. Pt continues to present with L side visual intattention, keeping head down or eyes closed, and decrease attention to task. Pt requires mod-max verbal cues although carried over merrick card task independently. - Goals Timeframe: 2 weeks Goals: bed mobility: moderate /max assistance. transfers: max assistance with board. feeding: S. grooming: min assist. dressing: mod/max assist - Provider License Number: [id number] Occupational Therapy - Arousal/Attention/Orientation Patient Orientation: Person, Place - ADL/IADL Self Feeding: Verbal Cues, Set-up Help, Contact Guard Grooming: Verbal Cues, Set-up Help, Maximum Assistance Bathing-Upper Extremity: Dependent Bathing-Lower Extremity: Dependent Dressing-Upper Extremity: Maximum Assistance, Dependent Dressing-Lower Extremity: Dependent Comment: Pt needs 2 person assist for bed mobility/positioning for bathing/ toilet and w/c transfers. Slide board transfers to bed with 2 person assist seems easier/safer for pt and staff - Sitting Balance Static Sitting: Minimal Assistance Dynamic Sitting: Maximal Assistance Comment: unsupported - Transfers Wheelchair to Bed Transfers: Dependent Toilet Transfers: Dependent Comment: Sponge bathing in bed being completed at this time secondary to impaired trunk control/balance/endurance. - Wheelchair Management Level of Assistance: Dependent Distance (ft.): 0 - Upper Extremity Status Right Upper Extremity Comment: RUE WFL t/o Left Upper Extremity Comment: PROM IS WNLS, but NO AROM noted at this time. Pt noted with slight flexor tone t/o elbow - Pain Pain (assessed during therapy session): 7 Alleviating Techniques: Position Change Comment: Back - Insight/Carryover Insight/Carryover: Poor - Patient/Family Education Comment: the patient's daughter and friend observed Physical and Occupational therapy sessions. EDU provided for POC, ADLs, transfers, cognition, vision, safety - ongoing. - Assessment/Plan Assessment: Pt continues to require max verbal cues to participate in recreation therapy sessions. Pt's participation is limited by decrease sitting in wheelchair tolerance, decrease arousal, and decrease attention to task. Pt participates in leisure tasks during therapy sessions to improve attention to task and decrease outside stimuli or pain. Pt continues to present with L side visual intattention, keeping head down or eyes closed, and decrease attention to task. Pt requires mod-max verbal cues although carried over merrick card task independently. - Goals Timeframe: 2 weeks Goals: bed mobility: moderate /max assistance. transfers: max assistance with board. feeding: S. grooming: min assist. 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 Pt's participation is limited by decrease sitting in wheelchair tolerance, decrease arousal, and decrease attention to task. Pt participates in leisure tasks during therapy sessions to improve attention to task and decrease outside stimuli or pain. Pt continues to present with L side visual intattention, keeping head down or eyes closed, and decrease attention to task. Pt requires mod-max verbal cues although carried over merrick card task independently. Plan: Continue Dysphagia Therapy, Continue Speech/Language Therapy - Provider Therapist: Kiki Raman License Number: [id number] Recreational Therapy - Participation Participation: Participates in Individual and/or Group Sessions, Monitors His/ Her Own Leisure Time - Attendance Attendance: Daily - Activities Leisure Activities: Socializing - Socialization Level of Socialization: Initiates/interacts with caregivers but not with peer, Responds freely, but does not initiate - Diversional Time Diversional Time: socializing with family - Assessment Assessment/Plan: Pt continues to require max verbal cues to participate in recreation therapy sessions. Pt's participation is limited by decrease sitting in wheelchair tolerance, decrease arousal, and decrease attention to task. Pt participates in leisure tasks during therapy sessions to improve attention to task and decrease outside stimuli or pain. Pt continues to present with L side visual intattention, keeping head down or eyes closed, and decrease attention to task. Pt requires mod-max verbal cues although carried over merrick card task independently. Problems Currently Limiting Participation: decrease safety awareness, poor insight of deficits, L side neglect, decrease activity tolerance level, decrease arousal Goals and Time Frame: Pt will be encouraged to participate in 1:1 and group recreation therapy sessions 3-5x week to improve L side visual attention, attention to task, direction following, and problem solving levels. - Provider Therapist: Shelley Buchanan, [employer] #[id number] Nutrition - Current Diet Current Diet/ Supplement/ Feedings: Mech altered(finely chopped) thin liquids Moderate consistent CHO heart healthy diet - Appetite Percent Meal Consumed: 50-74% - Comments Comments: Care post CVA and safety precautions - Assessment/Goals/Time Frame Assessment/Goals/Time Frame: Poor appetite, left knee swelling. - Provider Provider: Suki Jefferson RD Case Management - Psychosocial Assessment Support Systems: Patient has a very supportive family. Spouse serves as primary contact- uLis Farfan- [phone], Psychological Interventions/Needs: Patient is alert with lethargy Discharge Concerns: Patient with increased lethargy and fatigue, requires total assist for transfers and max A for bed mobility. Patient with poor safety awareness and L sided neglect Patient/Family Meeting: CM met with patient and rehab team Intervention/Goal/Outcome:: 1. Plan: PEDRO as patient continues to require max- total assist for funcitonal mobility. CM to provide list family. 2. continued emotional support. 3. Tentative d/c date: 08/24/2016 - Discharge Plan Discharge Plan: Subacute care - Provider Provider: LEIDY Cummings, [employer] License Number: [id number] Rehabilitation Plan - Discharge Plan Estimated Date of Discharge: 08/24/16 Discharge to: Subacute
--- NOTE | 2016-08-12 13:30 | CP.PCM.PN ---
Subjective - Date & Time of Evaluation Date of Evaluation: 08/12/16 Time of Evaluation: 13:29 - Subjective Subjective: Patient seen in room left knee swelling and ecchymosis I spoke with patient and family I will try and perform arthrocentesis she does go into spasm easily so may not be successful Objective - Vital Signs/Intake and Output Vital Signs (last 24 hours): Temp Pulse Resp BP Pulse Ox 97.9 F 98 H 20 126/56 L 100 08/12/16 09:00 08/12/16 09:08 08/12/16 09:00 08/12/16 09:08 08/12/16 07:44 - Medications Medications: Current Medications Acetaminophen (Tylenol 325mg Tab) 650 mg PO Q6 PRN PRN Reason: Other Aspirin (Ecotrin) 81 mg PO DAILY [facility] Last Admin: 08/12/16 09:08 Dose: 81 mg Docusate Sodium (Colace) 100 mg PO Q12 [facility] Last Admin: 08/12/16 09:07 Dose: 100 mg Home Med (Patient's Own Medication) 1 unit OU [facility] Last Admin: 08/11/16 21:35 Dose: 1 unit Lisinopril (Zestril) 20 mg PO DAILY [facility] Last Admin: 08/12/16 09:08 Dose: 20 mg Metformin HCl (Glucophage) 500 mg PO 899,1999 [facility] Last Admin: 08/12/16 09:08 Dose: 500 mg Metoprolol Tartrate (Lopressor) 50 mg PO Q12 [facility] Last Admin: 08/12/16 09:08 Dose: 50 mg Rivaroxaban (Xarelto) 20 mg PO DAILY [facility] PRN Reason: Protocol Last Admin: 08/12/16 09:08 Dose: 20 mg Senna/Docusate Sodium (Senokot S 50 Mg-8.6 Mg) 1 tab PO HS [facility] Last Admin: 08/11/16 21:33 Dose: 1 tab Sertraline HCl (Zoloft) 25 mg PO HS [facility] Last Admin: 08/11/16 21:33 Dose: 25 mg - Labs Labs: 08/03/16 05:30 08/09/16 07:00
[2016-08-12] MEDS: TRAVOPROST OU SCH (21:00)
[2016-08-12] MEDS: [UNRECOGNIZED DRUG - OTHER] OU SCH (21:00)
[2016-08-12] MEDS: Docusate-Senna 50 mg-8.6 mg Tab PO SCH (21:00)
--- NOTE | 2016-08-13 09:23 | CP.PCM.PN ---
Subjective - Date & Time of Evaluation Date of Evaluation: 08/13/16 Time of Evaluation: 09:10 - Subjective Subjective: Clinically making extremely slow progress A Fib with HR 80 BPM/BP 138/72 mm Hg No signs of CHF [place] reliably with little or no choking Lt knee to be tapped Will stop ASA and speak with Dr. Ennis re schedule (Xarelto needs to be stopped 2 days before) Await urine C/S report of sample sent on Objective - Vital Signs/Intake and Output Vital Signs (last 24 hours): Temp Pulse Resp BP Pulse Ox 97.9 F 93 H 20 134/57 L 99 08/12/16 20:43 08/13/16 08:34 08/12/16 20:43 08/13/16 08:34 08/12/16 20:43 - Medications Medications: Current Medications Acetaminophen (Tylenol 325mg Tab) 650 mg PO Q6 PRN PRN Reason: Other Docusate Sodium (Colace) 100 mg PO Q12 [facility] Last Admin: 08/13/16 08:33 Dose: 100 mg Home Med (Patient's Own Medication) 1 unit OU [facility] Last Admin: 08/12/16 21:00 Dose: 1 unit Lisinopril (Zestril) 20 mg PO DAILY [facility] Last Admin: 08/13/16 08:34 Dose: 20 mg Metformin HCl (Glucophage) 500 mg PO 0900,1999 [facility] Last Admin: 08/13/16 08:33 Dose: 500 mg Metoprolol Tartrate (Lopressor) 50 mg PO Q12 [facility] Last Admin: 08/13/16 08:33 Dose: 50 mg Rivaroxaban (Xarelto) 20 mg PO DAILY [facility] PRN Reason: Protocol Last Admin: 08/13/16 08:34 Dose: 20 mg Senna/Docusate Sodium (Senokot S 50 Mg-8.6 Mg) 1 tab PO [facility] Last Admin: 08/12/16 21:00 Dose: 1 tab Sertraline HCl (Zoloft) 25 mg PO [facility] Last Admin: 08/12/16 21:00 Dose: 25 mg - Labs Labs: 08/03/16 05:30 08/09/16 07:00
[2016-08-13] MEDS: TRAVOPROST OU SCH (21:13)
[2016-08-13] MEDS: [UNRECOGNIZED DRUG - OTHER] OU SCH (21:13)
[2016-08-13] MEDS: Docusate-Senna 50 mg-8.6 mg Tab PO SCH (21:14)
[2016-08-14 08:01] LABS: HEMATOCRIT 37.1 % (34.0-47.0); MEAN CELL VOLUME 86.3 fl (81.0-99.0); MEAN CORPUSCULAR HEMOGLOBIN 28.1 pg (27.0-31.0); MEAN CORPUSCULAR HGB CONC 32.6 g/dL (33.0-37.0); RED CELL DISTRIBUTION WIDTH 14.7 % (11.5-14.5); WHITE BLOOD COUNT 9.3 K/uL (4.8-10.8)
[2016-08-14 08:26] LABS: ALB/GLOB RATIO 0.9 (1.0-2.1); ALKALINE PHOSPHATASE 109 U/L (38-126); ALT/SGPT 30 U/L (9-52); AST/SGOT 31 U/L (14-36); BILIRUBIN,TOTAL 1.8 mg/dl (0.2-1.3); BLOOD UREA NITROGEN 14 mg/dl (7-17); CALCIUM 9.2 mg/dL (8.4-10.2); CARBON DIOXIDE 23 mmol/L (22-30); CHLORIDE 102 mmol/L (98-107); GFR AFRICAN-AMERICAN > 60; GLUCOSE,RANDOM 179 mg/dL (65-105); POTASSIUM 4.1 MMOL/L (3.6-5.0); SODIUM 138 mmol/l (132-148); TOTAL PROTEIN 7.1 G/DL (6.3-8.2)
--- NOTE | 2016-08-14 10:49 | CP.PCM.PN ---
Subjective - Date & Time of Evaluation Date of Evaluation: 08/14/16 Time of Evaluation: 10:30 - Subjective Subjective: Pt seen in rehab while she was doing OT Vital signs stable Lt knee still swollen with mild ecchymotic discolorarion (CT does not show any bleeding in or around the joint Dr. Ennis plans to tap it today Labs noted: they are stable Urine culture from 27th (Lactobacillus) Pt to continue present Rx Objective - Vital Signs/Intake and Output Vital Signs (last 24 hours): Temp Pulse Resp BP Pulse Ox 97.8 F 90 22 125/68 99 08/14/16 08:28 08/14/16 09:04 08/14/16 08:28 08/14/16 09:04 08/14/16 08:28 - Medications Medications: Current Medications Acetaminophen (Tylenol 325mg Tab) 650 mg PO Q6 PRN PRN Reason: Other Docusate Sodium (Colace) 100 mg PO Q12 [facility] Last Admin: 08/14/16 09:03 Dose: Not Given Home Med (Patient's Own Medication) 1 unit OU [facility] Last Admin: 08/13/16 21:13 Dose: 1 unit Lisinopril (Zestril) 20 mg PO DAILY [facility] Last Admin: 08/14/16 09:04 Dose: 20 mg Metformin HCl (Glucophage) 500 mg PO 0900,1999 [facility] Last Admin: 08/14/16 08:54 Dose: 500 mg Metoprolol Tartrate (Lopressor) 50 mg PO Q12 [facility] Last Admin: 08/14/16 08:55 Dose: 50 mg Rivaroxaban (Xarelto) 20 mg PO DAILY [facility] PRN Reason: Protocol Last Admin: 08/14/16 08:54 Dose: 20 mg Senna/Docusate Sodium (Senokot S 50 Mg-8.6 Mg) 1 tab PO [facility] Last Admin: 08/13/16 21:14 Dose: Not Given Sertraline HCl (Zoloft) 25 mg PO [facility] Last Admin: 08/13/16 21:17 Dose: 25 mg - Labs Labs: 08/14/16 05:30 08/14/16 05:30
[2016-08-14] MEDS ORDERED: Docusate-Senna 50 mg-8.6 mg Tab PO PRN (10:51)
--- NOTE | 2016-08-14 18:30 | CP.PCM.PN ---
Subjective - Date & Time of Evaluation Date of Evaluation: 08/14/16 Time of Evaluation: 18:27 - Subjective Subjective: Procedure Note I performed a left knee arthrocentesis under sterile conditions I had excellent access to the knee joint with medial approach and only 1-2 cc clear fluid came out I then went laterally and some bloody fluid was removed from the soft tissue area, but not a large amount and I did not want to go around and cause more local trauma. I discussed with Dr Myers and it may be helpful to have an US done of the soft tissue collection, but letting it reabsorb on it's own is reasonable Objective - Vital Signs/Intake and Output Vital Signs (last 24 hours): Temp Pulse Resp BP Pulse Ox 96.8 F L 88 20 119/58 L 100 08/14/16 16:16 08/14/16 16:16 08/14/16 16:16 08/14/16 16:16 08/14/16 16:16 - Medications Medications: Current Medications Acetaminophen (Tylenol 325mg Tab) 650 mg PO Q6 PRN PRN Reason: Other Last Admin: 08/14/16 12:46 Dose: 650 mg Docusate Sodium (Colace) 100 mg PO Q12 [facility] Last Admin: 08/14/16 09:03 Dose: Not Given Home Med (Patient's Own Medication) 1 unit OU HS [facility] Lisinopril (Zestril) 20 mg PO DAILY [facility] Last Admin: 08/14/16 09:04 Dose: 20 mg Metformin HCl (Glucophage) 500 mg PO 0900,2000 [facility] Last Admin: 08/14/16 08:54 Dose: 500 mg Metoprolol Tartrate (Lopressor) 50 mg PO Q12 [facility] Last Admin: 08/14/16 08:55 Dose: 50 mg Rivaroxaban (Xarelto) 20 mg PO DAILY [facility] PRN Reason: Protocol Last Admin: 08/14/16 08:54 Dose: 20 mg Senna/Docusate Sodium (Senokot S 50 Mg-8.6 Mg) 1 tab PO HS PRN PRN Reason: Constipation Sertraline HCl (Zoloft) 25 mg PO HS [facility] Last Admin: 08/13/16 21:17 Dose: 25 mg - Labs Labs: 08/14/16 05:30 08/14/16 05:30
[2016-08-14] MEDS: TRAVOPROST OU SCH (22:19)
[2016-08-14] MEDS: [UNRECOGNIZED DRUG - OTHER] OU SCH (22:19)
--- NOTE | 2016-08-15 09:26 | CP.PCM.PN ---
Subjective - Date & Time of Evaluation Date of Evaluation: 08/15/16 Time of Evaluation: 09:20 - Subjective Subjective: C/O nausea today Keeps obsessing about a loose tooth that she was planning to see a dentist about Vital signs stable Discussed with Dr. Ennis the issues with her Lt knee Will go over CT of Lt knee with the radiologist (?? need to look for poss haematoma??) Have called dental service to see pt Rpt Urine culture sent Objective - Vital Signs/Intake and Output Vital Signs (last 24 hours): Temp Pulse Resp BP Pulse Ox 97.3 F L 67 19 142/66 97 08/15/16 07:55 08/15/16 09:21 08/15/16 07:55 08/15/16 09:21 08/15/16 07:55 - Medications Medications: Current Medications Acetaminophen (Tylenol 325mg Tab) 650 mg PO Q6 PRN PRN Reason: Other Last Admin: 08/14/16 12:46 Dose: 650 mg Docusate Sodium (Colace) 100 mg PO Q12 [facility] Last Admin: 08/15/16 09:20 Dose: 100 mg Home Med (Patient's Own Medication) 1 unit OU HS [facility] Last Admin: 08/14/16 22:19 Dose: 1 unit Lisinopril (Zestril) 20 mg PO DAILY [facility] Last Admin: 08/15/16 09:21 Dose: 20 mg Metformin HCl (Glucophage) 500 mg PO 899,1999 [facility] Last Admin: 08/15/16 09:20 Dose: 500 mg Metoprolol Tartrate (Lopressor) 50 mg PO Q12 [facility] Last Admin: 08/15/16 09:21 Dose: 50 mg Ondansetron HCl (Zofran Inj) 4 mg IVP ONCE ONE Stop: 08/15/16 09:20 Rivaroxaban (Xarelto) 20 mg PO DAILY [facility] PRN Reason: Protocol Last Admin: 08/15/16 09:20 Dose: 20 mg Senna/Docusate Sodium (Senokot S 50 Mg-8.6 Mg) 1 tab PO HS PRN PRN Reason: Constipation Sertraline HCl (Zoloft) 25 mg PO HS [facility] Last Admin: 08/14/16 21:08 Dose: 25 mg - Labs Labs: 08/14/16 05:30 08/14/16 05:30
--- NOTE | 2016-08-15 13:45 | PCM.DENTAL ---
Dental Consult - Evaluation Chief Complaint: loose upper anterior tooth - Exam Other: tooth #8 slightly to moderately loose - Swelling Swelling: No - Finding Avulsed tooth: No Tooth Fracture: No Decayed teeth: no decay present on #8 or any other apparent toothdecay in any other tooth Peridontal involvement: mild to moderate - Recommendations Recommendations to admitting physician: no apparent treatment needed at this time - Referrals Referral: dentist after discharge (patient should just avoid biting into anything very hard with her front teeth)
--- NOTE | 2016-08-15 16:53 | CP.PCM.PN ---
Subjective - Date & Time of Evaluation Date of Evaluation: 08/15/16 Time of Evaluation: 16:52 - Subjective Subjective: Patient seen in room no significant change pain in left knee is stable max A to dependent with most activity continue current care Objective - Vital Signs/Intake and Output Vital Signs (last 24 hours): Temp Pulse Resp BP Pulse Ox 97.3 F L 67 19 142/66 97 08/15/16 07:55 08/15/16 09:21 08/15/16 07:55 08/15/16 09:21 08/15/16 07:55 - Medications Medications: Current Medications Acetaminophen (Tylenol 325mg Tab) 650 mg PO Q6 PRN PRN Reason: Other Last Admin: 08/14/16 12:46 Dose: 650 mg Docusate Sodium (Colace) 100 mg PO Q12 [facility] Last Admin: 08/15/16 09:20 Dose: 100 mg Home Med (Patient's Own Medication) 1 unit OU HS [facility] Last Admin: 08/14/16 22:19 Dose: 1 unit Lisinopril (Zestril) 20 mg PO DAILY [facility] Last Admin: 08/15/16 09:21 Dose: 20 mg Metformin HCl (Glucophage) 500 mg PO 0900,1999 [facility] Last Admin: 08/15/16 09:20 Dose: 500 mg Metoprolol Tartrate (Lopressor) 50 mg PO Q12 [facility] Last Admin: 08/15/16 09:21 Dose: 50 mg Rivaroxaban (Xarelto) 20 mg PO DAILY [facility] PRN Reason: Protocol Last Admin: 08/15/16 09:20 Dose: 20 mg Senna/Docusate Sodium (Senokot S 50 Mg-8.6 Mg) 1 tab PO HS PRN PRN Reason: Constipation Sertraline HCl (Zoloft) 25 mg PO HS [facility] Last Admin: 08/14/16 21:08 Dose: 25 mg - Labs Labs: 08/14/16 05:30 08/14/16 05:30
[2016-08-15] MEDS: [UNRECOGNIZED DRUG - OTHER] OU SCH (21:52)
[2016-08-15] MEDS: TRAVOPROST OU SCH (21:52)
[2016-08-16] MEDS: TRAVOPROST OU SCH (22:36)
[2016-08-16] MEDS: [UNRECOGNIZED DRUG - OTHER] OU SCH (22:36)
--- NOTE | 2016-08-17 10:52 | CP.PCM.PN ---
Subjective - Date & Time of Evaluation Date of Evaluation: 08/17/16 Time of Evaluation: 10:52 - Subjective Subjective: Patient seen in room no pain left knee decrease in ecchymosis no extra swelling stable continue current care Objective - Vital Signs/Intake and Output Vital Signs (last 24 hours): Temp Pulse Resp BP Pulse Ox 97.8 F 77 19 129/67 99 08/17/16 10:00 08/17/16 10:00 08/17/16 10:00 08/17/16 10:00 08/17/16 10:00 - Medications Medications: Current Medications Acetaminophen (Tylenol 325mg Tab) 650 mg PO Q6 PRN PRN Reason: Other Last Admin: 08/16/16 11:02 Dose: 650 mg Docusate Sodium (Colace) 100 mg PO Q12 [facility] Last Admin: 08/17/16 08:53 Dose: 100 mg Home Med (Patient's Own Medication) 1 unit OU HS [facility] Last Admin: 08/16/16 22:36 Dose: 1 unit Lisinopril (Zestril) 20 mg PO DAILY [facility] Last Admin: 08/17/16 08:54 Dose: 20 mg Metformin HCl (Glucophage) 500 mg PO 0900,1999 [facility] Last Admin: 08/17/16 08:53 Dose: 500 mg Metoprolol Tartrate (Lopressor) 50 mg PO Q12 [facility] Last Admin: 08/17/16 08:53 Dose: 50 mg Rivaroxaban (Xarelto) 20 mg PO DAILY [facility] PRN Reason: Protocol Last Admin: 08/17/16 09:22 Dose: 20 mg Senna/Docusate Sodium (Senokot S 50 Mg-8.6 Mg) 1 tab PO HS PRN PRN Reason: Constipation Sertraline HCl (Zoloft) 25 mg PO HS [facility] Last Admin: 08/16/16 22:35 Dose: 25 mg - Labs Labs: 08/14/16 05:30 08/14/16 05:30
[2016-08-17] MEDS: [UNRECOGNIZED DRUG - OTHER] OU SCH (21:08)
[2016-08-17] MEDS: TRAVOPROST OU SCH (21:08)
--- NOTE | 2016-08-18 08:51 | CP.PCM.PN ---
Subjective - Date & Time of Evaluation Date of Evaluation: 08/18/16 Time of Evaluation: 08:40 - Subjective Subjective: Clinically stable Swollowing well (Diet advanced to "Bite sized") Urine culture of 08/15 again "no growth" Dental evaluation noted Vital signs stable Motor function unchanged Present Rx to continue Will get labs Objective - Vital Signs/Intake and Output Vital Signs (last 24 hours): Temp Pulse Resp BP Pulse Ox 98.1 F 101 H 20 117/54 L 100 08/18/16 08:14 08/18/16 08:14 08/18/16 08:14 08/18/16 08:14 08/18/16 08:14 - Medications Medications: Current Medications Acetaminophen (Tylenol 325mg Tab) 650 mg PO Q6 PRN PRN Reason: Other Last Admin: 08/16/16 11:02 Dose: 650 mg Docusate Sodium (Colace) 100 mg PO Q12 [facility] Last Admin: 08/17/16 20:50 Dose: Not Given Home Med (Patient's Own Medication) 1 unit OU HS [facility] Last Admin: 08/17/16 21:08 Dose: 1 unit Lisinopril (Zestril) 20 mg PO DAILY [facility] Last Admin: 08/17/16 08:54 Dose: 20 mg Metformin HCl (Glucophage) 500 mg PO 00,1999 [facility] Last Admin: 08/17/16 20:49 Dose: 500 mg Metoprolol Tartrate (Lopressor) 50 mg PO Q12 [facility] Last Admin: 08/17/16 20:50 Dose: 50 mg Rivaroxaban (Xarelto) 20 mg PO DAILY [facility] PRN Reason: Protocol Last Admin: 08/17/16 09:22 Dose: 20 mg Senna/Docusate Sodium (Senokot S 50 Mg-8.6 Mg) 1 tab PO HS PRN PRN Reason: Constipation Sertraline HCl (Zoloft) 25 mg PO HS [facility] Last Admin: 08/17/16 21:08 Dose: 25 mg - Labs Labs: 08/14/16 05:30 08/14/16 05:30
[2016-08-18] MEDS: TRAVOPROST OU SCH (21:01)
[2016-08-18] MEDS: [UNRECOGNIZED DRUG - OTHER] OU SCH (21:01)
[2016-08-19 07:41] LABS: ALB/GLOB RATIO 0.8 (1.0-2.1); ALKALINE PHOSPHATASE 112 U/L (38-126); ALT/SGPT 41 U/L (9-52); AST/SGOT 37 U/L (14-36); BILIRUBIN,TOTAL 1.2 mg/dl (0.2-1.3); BLOOD UREA NITROGEN 19 mg/dl (7-17); CARBON DIOXIDE 22 mmol/L (22-30); CHLORIDE 106 mmol/L (98-107); GFR AFRICAN-AMERICAN > 60; GLUCOSE,RANDOM 134 mg/dL (65-105); HEMATOCRIT 34.3 % (34.0-47.0); MEAN CELL VOLUME 86.2 fl (81.0-99.0); MEAN CORPUSCULAR HEMOGLOBIN 27.8 pg (27.0-31.0); MEAN CORPUSCULAR HGB CONC 32.2 g/dL (33.0-37.0); RED CELL DISTRIBUTION WIDTH 14.7 % (11.5-14.5); SODIUM 140 mmol/l (132-148); TOTAL PROTEIN 6.7 G/DL (6.3-8.2); WHITE BLOOD COUNT 8.3 K/uL (4.8-10.8)
--- NOTE | 2016-08-19 09:29 | CP.PCM.PN ---
Subjective - Date & Time of Evaluation Date of Evaluation: 08/19/16 Time of Evaluation: 08:30 - Subjective Subjective: Pt seen while having her breakfast with speech therapist in attendance Swollows even thin liquids well HR 78 BPM, irreg BP 136/74 mm Hg No signs of CHF Motor functions still poor Speech and mentation fine Today's labs noted/Stable. Objective - Vital Signs/Intake and Output Vital Signs (last 24 hours): Temp Pulse Resp BP Pulse Ox 97.4 F L 95 H 19 105/70 97 08/19/16 08:09 08/19/16 08:44 08/19/16 08:09 08/19/16 08:44 08/19/16 08:09 - Medications Medications: Current Medications Acetaminophen (Tylenol 325mg Tab) 650 mg PO Q6 PRN PRN Reason: Other Last Admin: 08/16/16 11:02 Dose: 650 mg Docusate Sodium (Colace) 100 mg PO Q12 [facility] Last Admin: 08/19/16 08:41 Dose: Not Given Home Med (Patient's Own Medication) 1 unit OU [facility] Last Admin: 08/18/16 21:01 Dose: 1 unit Lisinopril (Zestril) 20 mg PO DAILY [facility] Last Admin: 08/18/16 09:20 Dose: 20 mg Metformin HCl (Glucophage) 500 mg PO 0900,1999 [facility] Last Admin: 08/19/16 08:41 Dose: 500 mg Metoprolol Tartrate (Lopressor) 50 mg PO Q12 [facility] Last Admin: 08/19/16 08:44 Dose: 50 mg Rivaroxaban (Xarelto) 20 mg PO DAILY [facility] PRN Reason: Protocol Last Admin: 08/19/16 08:41 Dose: 20 mg Senna/Docusate Sodium (Senokot S 50 Mg-8.6 Mg) 1 tab PO HS PRN PRN Reason: Constipation Sertraline HCl (Zoloft) 25 mg PO HS [facility] Last Admin: 08/18/16 21:02 Dose: 25 mg - Labs Labs: 08/19/16 05:20 08/19/16 05:20
--- NOTE | 2016-08-19 13:19 | PSY.TMCNF ---
Nursing - Vital Signs Vital Signs (Last 8 hours): Vital Signs 08/19/16 08/19/16 08/19/16 08:09 08:44 10:00 Temperature 97.4 F L Pulse Rate 82 95 H 102 H Respiratory 19 Rate Blood Pressure 104/57 L 105/70 114/62 O2 Sat by Pulse 97 Oximetry 08/19/16 11:04 Temperature Pulse Rate Respiratory Rate Blood Pressure 113/64 O2 Sat by Pulse Oximetry Pain: 0 - Precautions: Precautions: Fall Prevention, Aspiration, Cardiac/Pulmonary - Medications/Other Issues Comment: Pt at moderate nutritional risk. goals: 1. Tolerate diet and consume > 75% of meals.(not met, continue). 2. Blood glucoses to be between 70-180 mg/dl (partially met, continue). Follow-up due on 08/25/2016 - Consults Comment: Dr. Ennis, Dr. Howard, Dr. Wu - Toileting Toileting: Dependent - Bladder Management Bladder Pattern: Incontinent Voiding Method: Bedpan - Bowel Management Bowel Pattern: Incontinent Bowel Management: Dependent - Transfers Transfers: Dependent - ADL's ADL's: Dependent - Pain Management Comments: Denies pain - Patient/Family Teaching Comments: Care post CVA and safety precautions - Goals/Time Frame Comments: Per multidisciplinary care plan and goals Physical Therapy - Bed Mobility Bed Mobility: Verbal Cues, Maximum Assistance Comment: requires 2 people - Transfers Sit to Stand: Verbal Cues, Maximum Assistance - Ambulation Level of Assistance: Dependent Orthoses: standing trials up to 30 seconds with at least 2-3 people assisting. Unable to walk. - Stair Negotiation Stairs: Level of Assistance: Not Tested - Standing Balance Static Stand: Maximal Assistance Dynamic Stand: Dependent - Pain Pain (assessed during therapy session): 6 Management Techniques: Medication, Position Change Comment: low back, L knee - Insight/Carryover Insight/Carryover: Poor - Patient/Family Education Comment: The patient's daughters, son, and grandson have attended sessions and observed therapy. Reviewed plan of care, home exercises. - Assessment/Plan Assessment: The patient's progress is limited at this point as she requires maximal/dependent assistance for all activities. Her use of the L LE is limited with occasional reflexive movements, but no volitional movements. During our sessions, the patient has been distracted and needs constant cueing to refocus. Recommend further PT working on use of the LLE, sitting and standing balance, transfers, and endurance. Upon discharge she will need an extended subacute stay for additional therapy. - Goals Timeframe: 1 week Goals: Bed mobility: maximal assistance x1. transfers: maximal assistance x1. standing trials: hvac design engineer the parallel bars with maximal assistance x1 for at least 1 minute - Provider License Number: [id number] Occupational Therapy - Arousal/Attention/Orientation Patient Orientation: Person, Place, Time - ADL/IADL Self Feeding: Verbal Cues, Set-up Help, Contact Guard Grooming: Verbal Cues, Set-up Help, Contact Guard, Minimal Assistance Bathing-Upper Extremity: Dependent Bathing-Lower Extremity: Dependent Dressing-Upper Extremity: Maximum Assistance, Dependent Dressing-Lower Extremity: Dependent Comment: Pt needs 2 person assist for bed mobility/positioning for bathing/ toilet and w/c transfers. [place] or tranfser board transfers with 2 person assist seems easier/safer for pt and staff - Sitting Balance Static Sitting: Contact Guard Assist Dynamic Sitting: Minimal Assistance, Moderate Assistance Comment: unsupported - Transfers Wheelchair to Bed Transfers: Dependent Toilet Transfers: Dependent Comment: Sponge bathing in bed being completed at this time secondary to impaired trunk control/balance/endurance. - Wheelchair Management Level of Assistance: Dependent Distance (ft.): 0 - Upper Extremity Status Right Upper Extremity Comment: RUE WFL t/o Left Upper Extremity Comment: PROM IS WNLS, but NO AROM noted at this time. Pt noted with slight flexor tone t/o elbow . Attempted to manage with NMES, vibration, stretching however Pt did not tolerate/respond to interventions. - Pain Pain (assessed during therapy session): 6 Alleviating Techniques: Medication, Position Change Comment: low back, L knee - Insight/Carryover Insight/Carryover: Poor - Patient/Family Education Comment: The patient's daughters, son, and grandson have attended sessions and observed therapy. Reviewed plan of care, home exercises. - Assessment/Plan Assessment: The patient's progress is limited at this point as she requires maximal/dependent assistance for all activities. Her use of the L LE is limited with occasional reflexive movements, but no volitional movements. During our sessions, the patient has been distracted and needs constant cueing to refocus. Recommend further PT working on use of the LLE, sitting and standing balance, transfers, and endurance. Upon discharge she will need an extended subacute stay for additional therapy. - Goals Timeframe: 1 week Goals: Bed mobility: maximal assistance x1. transfers: maximal assistance x1. 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 Her use of the L LE is limited with occasional reflexive movements, but no volitional movements. During our sessions, the patient has been distracted and needs constant cueing to refocus. Recommend further PT working on use of the LLE, sitting and standing balance, transfers, and endurance. Upon discharge she will need an extended subacute stay for additional therapy. Plan: Continue Dysphagia Therapy, Continue Speech/Language Therapy - Provider Therapist: Kiki Raman License Number: [id number] Recreational Therapy - Participation Participation: Monitors His/Her Own Leisure Time - Attendance Attendance: Daily - Activities Leisure Activities: Socializing - Socialization Level of Socialization: Initiates/interacts with caregivers but not with peer, Responds freely, but does not initiate - Diversional Time Diversional Time: socializing with family - Assessment Assessment/Plan: The patient's progress is limited at this point as she requires maximal/dependent assistance for all activities. Her use of the L LE is limited with occasional reflexive movements, but no volitional movements. During our sessions, the patient has been distracted and needs constant cueing to refocus. Recommend further PT working on use of the LLE, sitting and standing balance, transfers, and endurance. Upon discharge she will need an extended subacute stay for additional therapy. - Provider Therapist: Shelley Buchanan, CUSTOMER ADVISOR SPECIALIST #[id number] Nutrition - Current Diet Current Diet/ Supplement/ Feedings: advanced bite size thin liquids moderate consistent CHO heart healthy diet - Appetite Percent Meal Consumed: 50-74% - Comments Comments: Care post CVA and safety precautions - Assessment/Goals/Time Frame Assessment/Goals/Time Frame: Pt at moderate nutritional risk. goals: 1. Tolerate diet and consume >75% of meals.(not met, continue). 2. Blood glucoses to be between 70-180 mg/dl(partially met, continue). Follow-up due on 08/25/2016 - Provider Provider: Suki Jefferson RD Case Management - Psychosocial Assessment Support Systems: Patient has a very supportive family. Spouse serves as primary contact- Luis Farfan- [phone], Psychological Interventions/Needs: Patient is alert with lethargy Discharge Concerns: Patient with increased lethargy and fatigue, requires total assist for transfers and max A for bed mobility. Patient with poor safety awareness and L sided neglect Patient/Family Meeting: CM met with patient and rehab team Intervention/Goal/Outcome:: 1. Plan: PEDRO as patient continues to require max- total assist for funcitonal mobility- list of [facility]RO provided to family, CM to continue following for top 3 choices. 2. continued emotional support. 3. Tentative d/c date: 08/24/2016 - Discharge Plan Discharge Plan: Subacute care - Provider Provider: LEIDY Cummings, MACHINE CUTTER License Number: [id number] Rehabilitation Plan - Treatment Plan Treatment Plan: Physical Therapy, Occupational Therapy, Speech, Dietary, Pain Management, Patient/Family Education - Discharge Plan Estimated Date of Discharge: 08/23/16 Discharge to: Subacute
--- NOTE | 2016-08-19 18:48 | CP.PCM.PN ---
Subjective - Date & Time of Evaluation Date of Evaluation: 08/19/16 Time of Evaluation: 18:47 - Subjective Subjective: Patient making little progress overall she will need to go to [facility] at this point will change the d/c to 08/23/16 Objective - Vital Signs/Intake and Output Vital Signs (last 24 hours): Temp Pulse Resp BP Pulse Ox 97.7 F 88 20 100/56 L 100 08/19/16 15:39 08/19/16 15:39 08/19/16 15:39 08/19/16 15:39 08/19/16 15:39 - Medications Medications: Current Medications Acetaminophen (Tylenol 325mg Tab) 650 mg PO Q6 PRN PRN Reason: Other Last Admin: 08/16/16 11:02 Dose: 650 mg Docusate Sodium (Colace) 100 mg PO Q12 [facility] Last Admin: 08/19/16 08:41 Dose: Not Given Home Med (Patient's Own Medication) 1 unit OU HS [facility] Last Admin: 08/18/16 21:01 Dose: 1 unit Lisinopril (Zestril) 20 mg PO DAILY [facility] Last Admin: 08/19/16 10:00 Dose: 20 mg Metformin HCl (Glucophage) 500 mg PO 0900,2000 [facility] Last Admin: 08/19/16 08:41 Dose: 500 mg Metoprolol Tartrate (Lopressor) 50 mg PO Q12 [facility] Last Admin: 08/19/16 08:44 Dose: 50 mg Rivaroxaban (Xarelto) 20 mg PO DAILY [facility] PRN Reason: Protocol Last Admin: 08/19/16 08:41 Dose: 20 mg Senna/Docusate Sodium (Senokot S 50 Mg-8.6 Mg) 1 tab PO HS PRN PRN Reason: Constipation Sertraline HCl (Zoloft) 25 mg PO HS [facility] Last Admin: 08/18/16 21:02 Dose: 25 mg - Labs Labs: 08/19/16 05:20 08/19/16 05:20
[2016-08-19] MEDS: [UNRECOGNIZED DRUG - OTHER] OU SCH (21:03)
[2016-08-19] MEDS: TRAVOPROST OU SCH (21:03)
--- NOTE | 2016-08-20 09:56 | CP.PCM.PN ---
Subjective - Date & Time of Evaluation Date of Evaluation: 08/20/16 Time of Evaluation: 09:40 - Subjective Subjective: Ate well today Scant progress neurologically with PT HR 80 BPM, irreg BP 136/70 mm Hg No signs of CHF Present Rx to continue Objective - Vital Signs/Intake and Output Vital Signs (last 24 hours): Temp Pulse Resp BP Pulse Ox 97.9 F 88 20 114/60 98 08/20/16 08:21 08/20/16 08:58 08/20/16 08:21 08/20/16 08:58 08/20/16 08:21 - Medications Medications: Current Medications Acetaminophen (Tylenol 325mg Tab) 650 mg PO Q6 PRN PRN Reason: Other Last Admin: 08/16/16 11:02 Dose: 650 mg Docusate Sodium (Colace) 100 mg PO Q12 [facility] Last Admin: 08/20/16 08:57 Dose: Not Given Home Med (Patient's Own Medication) 1 unit OU HS [facility] Last Admin: 08/19/16 21:03 Dose: 1 unit Lisinopril (Zestril) 20 mg PO DAILY [facility] Last Admin: 08/20/16 08:58 Dose: 20 mg Metformin HCl (Glucophage) 500 mg PO 0900,2000 [facility] Last Admin: 08/20/16 08:57 Dose: 500 mg Metoprolol Tartrate (Lopressor) 50 mg PO Q12 [facility] Last Admin: 08/20/16 08:57 Dose: 50 mg Rivaroxaban (Xarelto) 20 mg PO DAILY [facility] PRN Reason: Protocol Last Admin: 08/20/16 08:57 Dose: 20 mg Senna/Docusate Sodium (Senokot S 50 Mg-8.6 Mg) 1 tab PO HS PRN PRN Reason: Constipation Sertraline HCl (Zoloft) 25 mg PO HS [facility] Last Admin: 08/19/16 21:02 Dose: 25 mg - Labs Labs: 08/19/16 05:20 08/19/16 05:20
[2016-08-20] MEDS: [UNRECOGNIZED DRUG - OTHER] OU SCH (21:10)
[2016-08-20] MEDS: TRAVOPROST OU SCH (21:10)
--- NOTE | 2016-08-21 10:48 | CP.PCM.PN ---
Subjective - Date & Time of Evaluation Date of Evaluation: 08/21/16 Time of Evaluation: 08:30 - Subjective Subjective: Marginal (if any) improvement in motor function Swollows normally A Fib at 78 BPM/ BP 138/ 74 mm Hg No signs of CHF Will need PEDRO (and possibly longer term placement) Scheduled for D/C in 2 days. Objective - Vital Signs/Intake and Output Vital Signs (last 24 hours): Temp Pulse Resp BP Pulse Ox 97.9 F 94 H 19 112/65 100 08/21/16 08:25 08/21/16 09:54 08/21/16 08:25 08/21/16 09:54 08/21/16 08:25 - Medications Medications: Current Medications Acetaminophen (Tylenol 325mg Tab) 650 mg PO Q6 PRN PRN Reason: Other Last Admin: 08/16/16 11:02 Dose: 650 mg Docusate Sodium (Colace) 100 mg PO Q12 [facility] Last Admin: 08/21/16 09:53 Dose: Not Given Home Med (Patient's Own Medication) 1 unit OU [facility] Last Admin: 08/20/16 21:10 Dose: 1 unit Lisinopril (Zestril) 20 mg PO DAILY [facility] Last Admin: 08/21/16 09:54 Dose: 20 mg Metformin HCl (Glucophage) 500 mg PO 899,1999 [facility] Last Admin: 08/21/16 09:53 Dose: 500 mg Metoprolol Tartrate (Lopressor) 50 mg PO Q12 [facility] Last Admin: 08/21/16 09:53 Dose: 50 mg Rivaroxaban (Xarelto) 20 mg PO DAILY [facility] PRN Reason: Protocol Last Admin: 08/21/16 09:54 Dose: 20 mg Senna/Docusate Sodium (Senokot S 50 Mg-8.6 Mg) 1 tab PO HS PRN PRN Reason: Constipation Sertraline HCl (Zoloft) 25 mg PO [facility] Last Admin: 08/20/16 21:09 Dose: 25 mg - Labs Labs: 08/19/16 05:20 08/19/16 05:20
--- NOTE | 2016-08-21 19:17 | CP.PCM.PN ---
Subjective - Date & Time of Evaluation Date of Evaluation: 08/21/16 Time of Evaluation: 19:15 - Subjective Subjective: Patient seen in room NAD discussed with daughter at great length DC plans and rationale she understood ortho consult tomorrow prior to d.c I informed her that regardless she is not a surgical candidate given all of her medical issues She was given significant time in spite of lack of progress and unfortunately was not able to make gains Objective - Vital Signs/Intake and Output Vital Signs (last 24 hours): Temp Pulse Resp BP Pulse Ox 98.9 F 99 H 20 100/72 99 08/21/16 16:34 08/21/16 16:34 08/21/16 16:34 08/21/16 16:34 08/21/16 16:34 - Medications Medications: Current Medications Acetaminophen (Tylenol 325mg Tab) 650 mg PO Q6 PRN PRN Reason: Other Last Admin: 08/21/16 15:44 Dose: 650 mg Docusate Sodium (Colace) 100 mg PO Q12 [facility] Last Admin: 08/21/16 09:53 Dose: Not Given Home Med (Patient's Own Medication) 1 unit OU [facility] Last Admin: 08/20/16 21:10 Dose: 1 unit Lisinopril (Zestril) 20 mg PO DAILY [facility] Last Admin: 08/21/16 09:54 Dose: 20 mg Metformin HCl (Glucophage) 500 mg PO 00,1999 [facility] Last Admin: 08/21/16 09:53 Dose: 500 mg Metoprolol Tartrate (Lopressor) 50 mg PO Q12 [facility] Last Admin: 08/21/16 09:53 Dose: 50 mg Rivaroxaban (Xarelto) 20 mg PO DAILY [facility] PRN Reason: Protocol Last Admin: 08/21/16 09:54 Dose: 20 mg Senna/Docusate Sodium (Senokot S 50 Mg-8.6 Mg) 1 tab PO HS PRN PRN Reason: Constipation Sertraline HCl (Zoloft) 25 mg PO HS [facility] Last Admin: 08/20/16 21:09 Dose: 25 mg - Labs Labs: 08/19/16 05:20 08/19/16 05:20
[2016-08-21] MEDS: [UNRECOGNIZED DRUG - OTHER] OU SCH (22:08)
[2016-08-21] MEDS: TRAVOPROST OU SCH (22:08)
--- NOTE | 2016-08-22 11:47 | CP.PCM.PN ---
Subjective - Date & Time of Evaluation Date of Evaluation: 08/22/16 Time of Evaluation: 11:00 - Subjective Subjective: Clinically stable Neurologically unchanged Dense Lt hemiplegia A Fib at 80 BPM BP 138/70 mm HG No signs of CHF Will go to sub rehab tomorrow to continue rehab. Objective - Vital Signs/Intake and Output Vital Signs (last 24 hours): Temp Pulse Resp BP Pulse Ox 98.1 F 84 20 110/70 100 08/22/16 07:42 08/22/16 09:07 08/22/16 07:42 08/22/16 09:07 08/22/16 07:42 - Medications Medications: Current Medications Acetaminophen (Tylenol 325mg Tab) 650 mg PO Q6 PRN PRN Reason: Other Last Admin: 08/21/16 15:44 Dose: 650 mg Docusate Sodium (Colace) 100 mg PO Q12 [facility] Last Admin: 08/22/16 09:06 Dose: 100 mg Home Med (Patient's Own Medication) 1 unit OU HS [facility] Last Admin: 08/21/16 22:08 Dose: 1 unit Lisinopril (Zestril) 20 mg PO DAILY [facility] Last Admin: 08/22/16 09:07 Dose: 20 mg Metformin HCl (Glucophage) 500 mg PO 899,1999 [facility] Last Admin: 08/22/16 09:06 Dose: 500 mg Metoprolol Tartrate (Lopressor) 50 mg PO Q12 [facility] Last Admin: 08/22/16 09:06 Dose: 50 mg Rivaroxaban (Xarelto) 20 mg PO DAILY [facility] PRN Reason: Protocol Last Admin: 08/22/16 09:07 Dose: 20 mg Senna/Docusate Sodium (Senokot S 50 Mg-8.6 Mg) 1 tab PO HS PRN PRN Reason: Constipation Sertraline HCl (Zoloft) 25 mg PO HS [facility] Last Admin: 08/21/16 22:07 Dose: 25 mg - Labs Labs: 08/19/16 05:20 08/19/16 05:20
--- NOTE | 2016-08-22 13:32 | CP.PCM.PN ---
Subjective - Date & Time of Evaluation Date of Evaluation: 08/22/16 Time of Evaluation: 13:31 - Subjective Subjective: Patient seen in PT 2 person max A transfer, giving almost no assist poor trunk control set for d/c to [facility] seen by ortho today as well Objective - Vital Signs/Intake and Output Vital Signs (last 24 hours): Temp Pulse Resp BP Pulse Ox 98.1 F 84 20 110/70 100 08/22/16 07:42 08/22/16 09:07 08/22/16 07:42 08/22/16 09:07 08/22/16 07:42 - Medications Medications: Current Medications Acetaminophen (Tylenol 325mg Tab) 650 mg PO Q6 PRN PRN Reason: Other Last Admin: 08/21/16 15:44 Dose: 650 mg Docusate Sodium (Colace) 100 mg PO Q12 [facility] Last Admin: 08/22/16 09:06 Dose: 100 mg Home Med (Patient's Own Medication) 1 unit OU HS [facility] Last Admin: 08/21/16 22:08 Dose: 1 unit Lisinopril (Zestril) 20 mg PO DAILY [facility] Last Admin: 08/22/16 09:07 Dose: 20 mg Metformin HCl (Glucophage) 500 mg PO 0900,1999 [facility] Last Admin: 08/22/16 09:06 Dose: 500 mg Metoprolol Tartrate (Lopressor) 50 mg PO Q12 [facility] Last Admin: 08/22/16 09:06 Dose: 50 mg Rivaroxaban (Xarelto) 20 mg PO DAILY [facility] PRN Reason: Protocol Last Admin: 08/22/16 09:07 Dose: 20 mg Senna/Docusate Sodium (Senokot S 50 Mg-8.6 Mg) 1 tab PO HS PRN PRN Reason: Constipation Sertraline HCl (Zoloft) 25 mg PO HS [facility] Last Admin: 08/21/16 22:07 Dose: 25 mg - Labs Labs: 08/19/16 05:20 08/19/16 05:20
--- NOTE | 2016-08-22 14:05 | CP.PCM.CON ---
History of Present Illness - History of Present Illness History of Present Illness: 75 yo F with pmhx of obesity, htn, DM, OA of hips and knees, previous LTHR, recently admitted for acute ischemic stroke secondary to A-fib, presents with left knee pain. Pt states she has a h/o b/l knee pain, however is not currently having any pain at the moment. Pt c/o left sided weakness and decreased range of motion due to recent stroke. Pt denies any SOB, chest pain. Review of Systems - Musculoskeletal Musculoskeletal: As Per HPI - Hematologic/Lymphatic Additional comments: Alert and oriented Left sided weakness upper and lower extremity Past Patient History - Past Medical History & Family History Past Medical History?: Yes - Past Social History Smoking Status: Never Smoked Alcohol: None Drugs: Denies Home Situation {Lives}: With Family - CARDIAC Hx Cardiac Disorders: Yes Hx Hypercholesterolemia: Yes Hx Hypertension: Yes - PULMONARY Hx Respiratory Disorders: No - NEUROLOGICAL HX Cerebrovascular Accident: Yes - HEENT Hx HEENT Problems: Yes Hx Glaucoma: Yes Other/Comment: (+) Left Homonymous Hemianopsia - RENAL Hx Chronic Kidney Disease: No - ENDOCRINE/METABOLIC Hx Diabetes Mellitus Type 2: Yes - HEMATOLOGICAL/ONCOLOGICAL Hx AIDS: No Hx Human Immunodeficiency Virus (HIV): No Hx Shingles: Yes - INTEGUMENTARY Hx Dermatological Problems: No - MUSCULOSKELETAL/RHEUMATOLOGICAL Hx Arthritis: Yes - GASTROINTESTINAL Hx Gastrointestinal Disorders: No - GENITOURINARY/GYNECOLOGICAL Hx Genitourinary Disorders: No Hx Incontinence: Yes Hx Urinary Tract Infection: Yes - PSYCHIATRIC Hx Psychophysiologic Disorder: No Hx Substance Use: No - SURGICAL HISTORY Hx Surgeries: Yes Hx Joint Replacement: Yes (Left THR 2012) Hx Musculoskeletal Surgery: Yes - ANESTHESIA Hx Anesthesia: Yes Hx Anesthesia Reactions: No Hx Malignant Hyperthermia: No Has any member of the family had a problem w/ anesthesia?: No Meds Allergies/Adverse Reactions: Allergies Allergy/AdvReac Type Severity Reaction Status Date / Time No Known Allergies Allergy Verified 10/28/14 13:18 - Medications Medications: Current Medications Acetaminophen (Tylenol 325mg Tab) 650 mg PO Q6 PRN PRN Reason: Other Last Admin: 08/21/16 15:44 Dose: 650 mg Docusate Sodium (Colace) 100 mg PO Q12 [facility] Last Admin: 08/22/16 09:06 Dose: 100 mg Home Med (Patient's Own Medication) 1 unit OU HS [facility] Last Admin: 08/21/16 22:08 Dose: 1 unit Lisinopril (Zestril) 20 mg PO DAILY [facility] Last Admin: 08/22/16 09:07 Dose: 20 mg Metformin HCl (Glucophage) 500 mg PO 899,1999 [facility] Last Admin: 08/22/16 09:06 Dose: 500 mg Metoprolol Tartrate (Lopressor) 50 mg PO Q12 [facility] Last Admin: 08/22/16 09:06 Dose: 50 mg Rivaroxaban (Xarelto) 20 mg PO DAILY [facility] PRN Reason: Protocol Last Admin: 08/22/16 09:07 Dose: 20 mg Senna/Docusate Sodium (Senokot S 50 Mg-8.6 Mg) 1 tab PO PRN PRN Reason: Constipation Sertraline HCl (Zoloft) 25 mg PO HS [facility] Last Admin: 08/21/16 22:07 Dose: 25 mg Physical Exam - Additional Findings Additional findings: Left knee: +edema +TTP along medial and lateral joint lines Unable to move lower extremity Calves soft and nontender b/l Distal pulses wnl Results - Vital Signs Recent Vital Signs: Last Vital Signs Temp 98.1 F 08/22/16 07:42 Pulse 84 08/22/16 09:07 Resp 20 08/22/16 07:42 BP 110/70 08/22/16 09:07 Pulse Ox 100 08/22/16 07:42 - Labs Result Diagrams: 08/19/16 05:20 08/19/16 05:20 Labs: Laboratory Results - last 24 hr 08/21/16 08/21/16 08/22/16 16:13 20:52 05:41 POC Glucose (mg/dL) 209 H 191 H 159 H 08/22/16 10:49 POC Glucose (mg/dL) 236 H Assessment & Plan - Assessment and Plan (Free Text) Assessment: 75 yo F with pmhx of obesity, htn, DM, OA hips and knees, previous LTHR, recently admitted for ichemic stroke secondary to a-fib presents with left knee pain Pt has h/o bilateral OA CT left knee reveals severe OA left knee No fracture or dislocation seen on CT Continue current management Pt can f/u for OA left knee as outpatient Discussed with Dr. Matthews
[2016-08-22] MEDS: TRAVOPROST OU SCH (21:26)
[2016-08-22] MEDS: [UNRECOGNIZED DRUG - OTHER] OU SCH (21:26)
[2016-08-23 09:27] VITALS: BP 141/69; PULSE 95
[2016-08-23 10:25] VITALS: RESP 19; TEMP 97.1; O2SAT 98
--- NOTE | 2016-08-23 12:29 | DS ---
She was hospitalized under my care on 08/04/2016, is being discharged to a subacute rehab center at [facility] in [place] on 08/23/2016. FINAL DIAGNOSES: Left hemiplegia secondary to cerebral embolism as a consequence of atrial fibrillat ion, history of diabetes mellitus, hypertension, exogenous obesity and status post left hip replaceme nt and urinary tract infection. This 75-year-old female was hospitalized recently with an acute onset of left hemiplegia which was as a consequence of cerebral embolism suffered secondary to atrial fibrillation. The patient also was found to have urinary tract infection which was due to E. coli sensitive to Cipro which she was takin g when she was hospitalized. After she finished the course of Cipro, it was discontinued and 2 subse quent urine samples were negative for any bacterial growth. The patient never experienced any fever or chills. Her atrial fibrillation was managed with metoprolol as a way to control her heart rate an d eventually she was started on rivaroxaban to anticoagulate her chronically. The patient never expe rienced overt congestive cardiac failure and never needed diuretic therapy. She was on lisinopril fo r managing her high blood pressure and metformin for managing hyperglycemia. The patient remained he modynamically stable. Initially, her swallowing was poor, but speech therapist worked with her every day and by the time of her discharge, the patient was able to swallow thin liquids without any diffi culty. As far as her motor function was concerned, the progress was very, very slow and the patient is being sent to subacute rehabilitation to build upon the progress she has made here. Her condition at the time of discharge was stable. Her final diagnoses were left hemiplegia secondary to cerebral embolism and cerebral infarct due to a trial fibrillation with hypertension, diabetes, and exogenous obesity. Marco Myers MD cc: 23 TT: 08/23/2016 12:28:21 ne
--- NOTE | 2016-09-16 14:18 | CP.PCM.DIS ---
Provider - Provider Date of Admission: 07/31/16 18:13 Attending physician: Marco Myers MD Primary care physician: Marco Myers MD Consults: 07/31/16 19:18 Case Management Referral Routine Comment: Physician Instructions: Reason For Exam: Reason for Referral: Discharge Planning 07/31/16 19:28 Wound Care [Nursing Referral for Wound Care] Routine Comment: Physician Instructions: Reason For Exam: (+) MASD GLUTEAL FOLDS Time Spent in preparation of Discharge (in minutes): 5 Prism Inspector Discharge Summary Discharge date: 08/23/16 - Review of Plan of Care Physical Therapy: Fail to Attain Occupational Therapy: Fail to Attain Recreational Therapy: Fail to Attain Speech Therapy: Fail to Attain - Goal Attainment Status on discharge: Non Ambulatory Level of assistance: Maximal Assistance ADL: Fail to Attain Level of assistance: Maximal Assistance Level of assistance: Maximal Assistance Speech Comprehension: Moderate Impairment Expression: Moderate Impairment - Plan for patients rehabilitation in the Subacute facility (weeks): 9 Hospital Course - Lab Results Lab Results: Micro Results 08/16/16 17:45 Urine,Catheterized Urine Culture - Final Lactobacillus Species 08/11/16 09:22 Urine,Catheterized Urine Culture - Final Lactobacillus Species 08/09/16 11:30 Urine,Catheterized Urine Culture - Final No Growth (<1,000 CFU/ML) Most Recent Lab Values WBC 8.3 K/uL (4.8-10.8) 08/19/16 05:20 RBC 3.98 Mil/uL (3.80-5.20) 08/19/16 05:20 Hgb 11.1 g/dL (12.0-16.0) L 08/19/16 05:20 Hct 34.3 % (34.0-47.0) 08/19/16 05:20 MCV 86.2 fl (81.0-99.0) 08/19/16 05:20 MCH 27.8 pg (27.0-31.0) 08/19/16 05:20 MCHC 32.2 g/dL (33.0-37.0) L 08/19/16 05:20 RDW 14.7 % (11.5-14.5) H 08/19/16 05:20 Plt Count 259 K/uL (130-400) 08/19/16 05:20 Sodium 140 mmol/l (132-148) 08/19/16 05:20 Potassium 4.0 MMOL/L (3.6-5.0) 08/19/16 05:20 Chloride 106 mmol/L (98-107) 08/19/16 05:20 Carbon Dioxide 22 mmol/L (22-30) 08/19/16 05:20 Anion Gap 16 (10-20) 08/19/16 05:20 BUN 19 mg/dl (7-17) H 08/19/16 05:20 Creatinine 0.9 mg/dL (0.7-1.2) 08/19/16 05:20 Est GFR ( Amer) > 60 08/19/16 05:20 Est GFR (Non-Af Amer) > 60 08/19/16 05:20 POC Glucose (mg/dL) 146 mg/dL (65-110) H 08/23/16 11:33 Random Glucose 134 mg/dL (65-105) H 08/19/16 05:20 Calcium 9.0 mg/dL (8.4-10.2) 08/19/16 05:20 Total Bilirubin 1.2 mg/dl (0.2-1.3) 08/19/16 05:20 AST 37 U/L (14-36) H 08/19/16 05:20 ALT 41 U/L (9-52) 08/19/16 05:20 Alkaline Phosphatase 112 U/L (38-126) 08/19/16 05:20 Total Protein 6.7 G/DL (6.3-8.2) 08/19/16 05:20 Albumin 3.0 g/dL (3.5-5.0) L 08/19/16 05:20 Globulin 3.7 gm/dL (2.2-3.9) 08/19/16 05:20 Albumin/Globulin Ratio 0.8 (1.0-2.1) L 08/19/16 05:20 Homocysteine 18.4 umol/L ( <10.4) H 08/04/16 14:31 Discharge Exam - Head Exam Head Exam: ATRAUMATIC, NORMAL INSPECTION, NORMOCEPHALIC Discharge Plan - Follow Up Plan Condition: GOOD Disposition: TRANSF TO SNF Referrals: Marco Myers MD [Primary Care Provider] -
== END 2016-08-23 15:26 | DRG 57 ==
PROVIDERS: ADMIT Internal Medicine Cardiovascular Disease; ATTEND Internal Medicine Cardiovascular Disease
PROC: F07Z9FZ Gait Training/Functional Ambulation Treatment using Assistive, Adaptive, Supportive or Protective Equipment (ICD-10-PCS; principal; 2016-07-31)
PROC: F08Z2FZ Grooming/Personal Hygiene Treatment using Assistive, Adaptive, Supportive or Protective Equipment (ICD-10-PCS; 2016-07-31)
PROC: F07M6FZ Therapeutic Exercise Treatment of Musculoskeletal System - Whole Body using Assistive, Adaptive, Supportive or Protective Equipment (ICD-10-PCS; 2016-08-01)
DX: I69.354 Hemiplegia and hemiparesis following cerebral infarction affecting left non-dominant side (principal); N39.0 Urinary tract infection, site not specified; I48.0 Paroxysmal atrial fibrillation; H53.462 Homonymous bilateral field defects, left side; I10 Essential (primary) hypertension; B96.20 Unspecified Escherichia coli [E. coli] as the cause of diseases classified elsewhere; E11.9 Type 2 diabetes mellitus without complications; I69.398 Other sequelae of cerebral infarction; H53.47 Heteronymous bilateral field defects; Z96.642 Presence of left artificial hip joint; E66.09 Other obesity due to excess calories; M17.0 Bilateral primary osteoarthritis of knee; K02.9 Dental caries, unspecified; M16.0 Bilateral primary osteoarthritis of hip; R32 Unspecified urinary incontinence; E78.00 Pure hypercholesterolemia, unspecified; F91.9 Conduct disorder, unspecified; Z68.34 Body mass index [BMI] 34.0-34.9, adult; H40.9 Unspecified glaucoma

== ENCOUNTER 2016-08-31 14:40 | Observation (INO) | payer MEDICARE, OTHER ==
[2016-08-31 14:46] VITALS: BMI 36.8
[2016-08-31] MEDS ORDERED: Sodium Chloride 0.9% 500 ML IV STA (15:23)
--- NOTE | 2016-08-31 15:26 | ED PDOC ---
HPI: General Adult Time Seen by Provider: 08/31/16 15:24 Chief Complaint (Nursing): Back Pain Chief Complaint (Provider): diarrhea/vomiting History Per: Patient, Family (75 y/o female recently under care of [facility] [place] after Left sided CVA here for multiple complaints. Has had ongoing vomiting and now diarrhea x 2 weeks. No fevers/chills/uri/cough. Family notes onset of skin ulcers on bottom. Patient has additional complaint of back pain improved with change in position. Family notes darkening urine.) Past Medical History Reviewed: Historical Data, Nursing Documentation, Vital Signs Vital Signs: Last Vital Signs Temp 98.1 F 08/31/16 14:44 Pulse 92 H 08/31/16 18:46 Resp 18 08/31/16 18:46 BP 111/66 08/31/16 18:46 Pulse Ox 100 08/31/16 18:46 - Medical History PMH: Arthritis, Atrial Fibrillation, Cardia Arrhythmia, Diabetes, HTN, Hypercholesterolemia Denies: HIV, Chronic Kidney Disease - Family History Family History: States: Unknown Family Hx - Home Medications Home Medications: Ambulatory Orders Medication Instructions Recorded Acetaminophen [Tylenol 325mg tab] 650 mg PO Q6 PRN 07/31/16 Aspirin 325 mg PO DAILY tab 07/31/16 Docusate Sodium/Sennosides A 1 tab PO HS 07/31/16 [Senokot S 50 MG-8.6 MG] Docusate [Colace] 100 mg PO BID cap 07/31/16 Lisinopril [Zestril] 20 mg PO DAILY tab 07/31/16 Metoprolol Tartrate [Lopressor] 50 mg PO Q12 tab 07/31/16 Travoprost [Travatan Z] 0.05 ml OU HS 07/31/16 Rivaroxaban [Xarelto] 20 mg PO DAILY tab 08/23/16 Sertraline [Zoloft] 25 mg PO HS tab 08/23/16 metFORMIN [glucOPHAGE] 500 mg PO 0900,1999 tab 08/23/16 - Allergies Allergies/Adverse Reactions: Allergies Allergy/AdvReac Type Severity Reaction Status Date / Time No Known Allergies Allergy Verified 10/28/14 13:18 Review of Systems ROS Statement: Except As Marked, All Systems Reviewed And Found Negative Physical Exam - Reviewed Nursing Documentation Reviewed: Yes Vital Signs Reviewed: Yes - Physical Exam Appears: Positive for: Well, Non-toxic, No Acute Distress Head Exam: Positive for: ATRAUMATIC, NORMAL INSPECTION, NORMOCEPHALIC Skin: Positive for: Normal Color, Warm, DRY Eye Exam: Positive for: EOMI, Normal appearance, PERRL ENT: Positive for: Normal ENT Inspection Neck: Positive for: Normal, Painless ROM Cardiovascular/Chest: Positive for: Regular Rate, Rhythm Respiratory: Positive for: CNT, Normal Breath Sounds Gastrointestinal/Abdominal: Positive for: Normal Exam, Bowel Sounds, Soft Back: Positive for: Normal Inspection, Other (notes paralumbar tenderness. ) Rectal: Positive for: Other ((+) small 5 mm stage 1 decub noted.) Extremity: Positive for: Normal ROM Neurologic/Psych: Positive for: Alert, Oriented - Laboratory Results Result Diagrams: 08/31/16 15:30 08/31/16 15:46 - ECG O2 Sat by Pulse Oximetry: 100 - Progress ED Course And Treament: Pepcid 20 mg iv x 1 dose Zofran 4 mg iv x 1 dose NS 500ml iv bolus labs reviewed with Dr. Figueredo. Will review US/Xry and contact Dr. Nirmal Myers Xry KUB: wnl US ABdomen: no acute abnormality d/w Dr. Penn payroll consultant for Dr. Myers. Patient to be admitted observation. d/w Dr. Samaniego. Admitted med/surg/obs for Diarrhea/vomiting/dehydration Disposition - Clinical Impression Clinical Impression: Vomiting, Dehydration - Patient ED Disposition Is Patient to be Admitted: Yes - Disposition Disposition Time: 20:09 Condition: FAIR - Pt Status Changed To: Hospital Disposition Of: Observation
[2016-08-31 15:51] LABS: BASO % 0.4 % (0.0-2.0); EOS # 0.1 K/uL (0.0-0.7); LYMPH # 1.8 K/uL (1.0-4.3); LYMPH % 21.4 % (20.0-40.0); MEAN CELL VOLUME 86.1 fl (81.0-99.0); MEAN CORPUSCULAR HEMOGLOBIN 27.9 pg (27.0-31.0); MEAN CORPUSCULAR HGB CONC 32.4 g/dL (33.0-37.0); MEAN PLATELET VOLUME 9.3 fl (7.2-11.7); MONO # 0.7 K/uL (0.0-0.8); MONO % 8.3 % (0.0-10.0); NEUT # 5.6 K/uL (1.8-7.0); NEUT % 68.9 % (50.0-75.0); RED CELL DISTRIBUTION WIDTH 15.1 % (11.5-14.5); WHITE BLOOD COUNT 8.2 K/uL (4.8-10.8)
[2016-08-31 15:59] LABS: ALB/GLOB RATIO 0.8 (1.0-2.1); ALKALINE PHOSPHATASE 118 U/L (38-126); ALT/SGPT 53 U/L (9-52); AST/SGOT 87 U/L (14-36); BILIRUBIN,TOTAL 2.1 mg/dl (0.2-1.3); BLOOD UREA NITROGEN 12 mg/dl (7-17); CALCIUM 9.5 mg/dL (8.4-10.2); CARBON DIOXIDE 21 mmol/L (22-30); CHLORIDE 106 mmol/L (98-107); GFR AFRICAN-AMERICAN > 60; GLUCOSE,RANDOM 106 mg/dL (65-105); LIPASE 206 U/L (23-300); MAGNESIUM 1.6 MG/DL (1.6-2.3); SODIUM 141 mmol/l (132-148)
[2016-08-31 16:01] LABS: POTASSIUM 5.2 MMOL/L (3.6-5.0)
[2016-08-31 16:42] LABS: RBC URINE 7 /hpf (0-3); URINE BACTERIA RARE (<OCC); URINE BILIRUBIN NEGATIVE (NEGATIVE); URINE BLOOD NEGATIVE (NEGATIVE); URINE COLOR AMBER (YELLOW); URINE GLUCOSE (UA) NEG (Normal); URINE KETONE TRACE mg/dL (NEGATIVE); URINE LEUKOCYTE ESTERASE NEG Leu/uL (Negative); URINE PROTEIN 30 mg/dL (NEGATIVE); URINE UROBILINOGEN 0.2-1.0 mg/dL (0.2-1.0); WBC URINE 3 /hpf (0-5)
--- NOTE | 2016-08-31 17:24 | RAD ---
HISTORY: evaluate for constipation COMPARISON: No prior. FINDINGS: BOWEL: Normal. No obstruction. No free air. BONES: Degenerative changes right hip, moderate-severe. Left RUI. OTHER FINDINGS: None. IMPRESSION: No significant or acute findings to account for/ related to the clinical presentation.
--- NOTE | 2016-08-31 17:59 | US ---
HISTORY: elevated bilirubin COMPARISON: None. TECHNIQUE: Sonographic evaluation of the abdomen. FINDINGS: LIVER: Measures 17.3 cm. Patent portal vein. Portal venous flow: Hepatopetal. Unremarkeable echogenicity of the liver parenchyma. No mass. No intrahepatic bile duct dilatation. GALLBLADDER: Unremarkable. No gallstones. COMMON BILE DUCT: Measures 3.8 mm. No stones. No dilatation. PANCREAS: Unremarkable as visualized. No mass. No ductal dilatation. RIGHT KIDNEY: Nondiagnostic assessment of the right kidney. AORTA: No aneurysmal dilatation. IVC: Unremarkable. OTHER FINDINGS: None. IMPRESSION: No acute findings related to/accounting for the clinical presentation. Limitations of the current examination: Nondiagnostic assessment right kidney. Portions of the pancreatic tail are also obscured.
[2016-09-01] MEDS ORDERED: Magnesium Hydroxide Susp 30 ml UD PO PRN (01:49)
[2016-09-01] MEDS ORDERED: Alum-Mag Hydrox-Simethicone Susp (30 mL) PO PRN (02:54)
[2016-09-01 06:10] LABS: ALB/GLOB RATIO 0.8 (1.0-2.1); ALKALINE PHOSPHATASE 113 U/L (38-126); ALT/SGPT 65 U/L (9-52); AST/SGOT 57 U/L (14-36); BILIRUBIN,TOTAL 1.1 mg/dl (0.2-1.3); BLOOD UREA NITROGEN 10 mg/dl (7-17); CALCIUM 9.3 mg/dL (8.4-10.2); CARBON DIOXIDE 22 mmol/L (22-30); CHLORIDE 108 mmol/L (98-107); GFR AFRICAN-AMERICAN > 60; GLUCOSE,RANDOM 93 mg/dL (65-105); POTASSIUM 3.8 MMOL/L (3.6-5.0); SODIUM 144 mmol/l (132-148); TOTAL PROTEIN 6.5 G/DL (6.3-8.2)
[2016-09-01] MEDS: Insulin Regular 100 units/ml SC SCH ×3 (06:49→16:35)
[2016-09-01 08:45] VITALS: RESP 20
--- NOTE | 2016-09-01 08:52 | CP.PCM.CON ---
History of Present Illness - History of Present Illness History of Present Illness: Full Note Dictated. Diarroea (?? c. def induced colitis) Recent CVA following cerebral embolism due to A Fib DM(II)/HTN/Obesity LV diastolic dysfunction Pulm hypertension (PA syst pressures >54 mm HG) Pt was recently treated with CIPRO for UTI (till 2Wks back) Stool sent for c def toxin Stable from cardiac point of view. Past Patient History - Infectious Disease Hx of Infectious Diseases: None - Past Medical History & Family History Past Medical History?: Yes - Past Social History Smoking Status: Never Smoked - CARDIAC Hx Cardiac Disorders: Yes Hx Atrial Fibrillation: Yes Hx Cardia Arrhythmia: Yes Hx Hypercholesterolemia: Yes Hx Hypertension: Yes - PULMONARY Hx Respiratory Disorders: Yes - NEUROLOGICAL Hx Neurological Disorder: Yes HX Cerebrovascular Accident: Yes - HEENT Hx HEENT Problems: Yes Hx Glaucoma: Yes Other/Comment: (+) Left Homonymous Hemianopsia - RENAL Hx Chronic Kidney Disease: No - ENDOCRINE/METABOLIC Hx Endocrine Disorders: Yes Hx Diabetes Mellitus Type 2: Yes - HEMATOLOGICAL/ONCOLOGICAL Hx Blood Disorders: No Hx Human Immunodeficiency Virus (HIV): No - INTEGUMENTARY Hx Dermatological Problems: Yes Other/Comment: multiple excoriations to bilateral groin, sacrum, buttocks - MUSCULOSKELETAL/RHEUMATOLOGICAL Hx Musculoskeletal Disorders: Yes Hx Arthritis: Yes Hx Falls: No - GASTROINTESTINAL Hx Gastrointestinal Disorders: Yes Hx Diarrhea: Yes Hx Ulcer: Yes - GENITOURINARY/GYNECOLOGICAL Hx Genitourinary Disorders: Yes Hx Incontinence: Yes Hx Urinary Tract Infection: Yes - PSYCHIATRIC Hx Psychophysiologic Disorder: No Hx Substance Use: No - SURGICAL HISTORY Hx Surgeries: Yes Hx Joint Replacement: Yes (Left THR 2012) Hx Musculoskeletal Surgery: Yes - ANESTHESIA Hx Anesthesia: Yes Hx Anesthesia Reactions: No Hx Malignant Hyperthermia: No Has any member of the family had a problem w/ anesthesia?: No Meds Allergies/Adverse Reactions: Allergies Allergy/AdvReac Type Severity Reaction Status Date / Time No Known Allergies Allergy Verified 10/28/14 13:18 - Medications Medications: Current Medications Al Hydrox/Mg Hydrox/Simethicone (Maalox Plus 30 Ml) 30 ml PO Q4 PRN PRN Reason: Indigestion / Heartburn Aspirin (Ecotrin) 81 mg PO DAILY [facility] Home Med (Metformin Er [Glucophage Xr]) 750 mg PO DAILY [facility] Insulin Human Regular (Humulin R) 0 units SC ACHS [facility] PRN Reason: Protocol Last Admin: 09/01/16 06:49 Dose: Not Given Lisinopril (Zestril) 20 mg PO DAILY [facility] Magnesium Hydroxide (Milk Of Magnesia) 30 ml PO DAILY PRN PRN Reason: Constipation Metoprolol Tartrate (Lopressor) 50 mg PO Q12 [facility] Ondansetron HCl (Zofran Tab) 4 mg PO Q6 PRN PRN Reason: Nausea/Vomiting Rivaroxaban (Xarelto) 20 mg PO DAILY [facility] PRN Reason: Protocol Senna/Docusate Sodium (Senokot S 50 Mg-8.6 Mg) 1 tab PO HS [facility] Sertraline HCl (Zoloft) 25 mg PO HS [facility] Results - Vital Signs Recent Vital Signs: Last Vital Signs Temp 97.8 F 09/01/16 08:44 Pulse 88 09/01/16 08:44 Resp 20 09/01/16 08:44 BP 134/81 09/01/16 08:44 Pulse Ox 99 09/01/16 08:44 - Labs Result Diagrams: 08/31/16 15:30 09/01/16 04:50 Labs: Laboratory Results - last 24 hr 09/01/16 09/01/16 04:50 05:25 Sodium 144 Potassium 3.8 Chloride 108 H Carbon Dioxide 22 Anion Gap 18 BUN 10 Creatinine 0.8 Est GFR ( Amer) > 60 Est GFR (Non-Af Amer) > 60 POC Glucose (mg/dL) 95 Random Glucose 93 Calcium 9.3 Total Bilirubin 1.1 AST 57 H D ALT 65 H D Alkaline Phosphatase 113 Total Protein 6.5 Albumin 2.9 L Globulin 3.6 Albumin/Globulin Ratio 0.8 L
[2016-09-01] MEDS ORDERED: Patient's Own Med (Metformin Er [Glucophage Xr] 750 mg) PO SCH (09:00)
--- NOTE | 2016-09-01 09:32 | CON ---
DATE: 09/01/2016 She is hospitalized under Dr. Linares's care. HISTORY OF PRESENT ILLNESS: This 75-year-old female who recently suffered a cerebrovascular accident leaving her paralyzed on the left side as a consequence of cerebral embolism as a consequence of atr ial fibrillation which was because of hypertension, diabetes and chronic exogenous obesity. The justina ent was treated at rehabilitation unit of this hospital and then sent to subacute rehabilitation appr oximately 10 days back where she has developed persistent diarrhea and intense anorexia and was broug ht back to the hospital. There is no history of chills or fever. The patient was treated with oral antibiotics, Cipro in this instance, for urinary tract infection for 10 days, which was discontinued approximately 2 weeks back. The patient was given probiotic at the same time as Cipro. PHYSICAL EXAMINATION: GENERAL: Shows an elderly female who is alert and awake and coherent with dense left hemiplegia, obv iously has lost some weight since her cerebrovascular accident. VITAL SIGNS: Afebrile with a pulse rate of 88 beats per minute, irregularly irregular, and a blood p ressure of 104/70 mmHg. NECK: Her jugular venous pressure was not elevated. EXTREMITIES: There was no pitting edema over both lower extremities nor the sacral area. The pedal pulses were well felt. The extremities were warm. Nailbeds were pink. There was no central or alena pheral cyanosis. There was no clubbing. HEART: The apex was not palpable. The first and second heart sounds were normal. There was a brief apical systolic murmur. There was no gallop rhythm. LUNGS: There were no rales. ABDOMEN: Soft, no organomegaly or tenderness was detected. There was no guarding or rigidity. Her electrocardiogram showed atrial fibrillation with moderate heart rates and otherwise normal EKG p attern. Review of her echocardiogram from last month showed a mildly hypertrophied left ventricle wi th preserved systolic function. Left and right atria were moderately dilated. There was evidence of mitral regurgitation. The pulmonary artery systolic pressure was approximately 54 mmHg. LABORATORY DATA: On her hospitalization now showed her BUN and creatinine are 12 and 0.7 mg%; at adm ission, these were 10 and 10.8 mg%. This morning, her potassium was 3.8 mEq per liter. AST and ALT were mildly abnormal during her last hospitalization. These were within normal limits. Her bilirub in at admission was 2.1 mg%; this morning it was 1.1 mg%. Earlier, there were levels as high as 2.4 mg% in 06/2016. Her electrolytes were essentially normal. Troponin was normal. Her hemoglobin and hematocrit were 12.6 g and 39% respectively. Her WBC count and platelet counts were normal. The pat ient was afebrile at the time of arriving in the Emergency Room. IMPRESSION: At this time is diarrhea, possibly due to Clostridium difficile-induced colitis in a pat ient who had recently received Cipro for urinary tract infection. This was discontinued approximatel y 2 weeks back and treatment with Cipro at that time was accompanied by probiotic. She has chronic a trial fibrillation with left hemiplegia and left ventricular diastolic dysfunction with markedly elev ated pulmonary artery systolic pressure. She has a history of hypertension, diabetes and chronic exo genous obesity. Stool has been sent for a C. diff toxin assessment as well as a stool for culture. I have emphasized fluid replacement to the family. The patient indicates that she plans to eat her b reakfast this morning. Marco Myers MD cc: 23 TT: 09/01/2016 09:31:50 Confirmation # [id number] Dictation # [id number] lucia
--- NOTE | 2016-09-01 09:58 | CP.PCM.HP ---
<Edi Stokes - Last Filed: 09/01/16 12:34> History of Present Illness - History of Present Illness History of Present Illness: 75 y/o female who recently suffered a CVA on July 24 with a PMHx of NIDDM2, HTN, HLD, and chronic afib presented to the ED with a complaint of diarrhea and vomiting for the past two weeks. She was on ciprofloxacin for two weeks for UTI when she developed the symptoms. She had no other complaints and denied fever/ chills, headaches, lightheadeness, nausea, urinary symptoms. ROS: 12 points reviewed and found to be negative PMD: Dr. Dow PMHx: CVA (July 24, 2016), NIDDM2, HTN, HLD, chronic atrial fibrillation Meds: as per med list ALL: NKDA ED Course: Vitals on presentation: Temp: 98.1 BP: 130/70 HR: 83 RR: 16 O2: 100% Labs ordered: CBC/CMP/UA/Trop/Lipase Imaging ordered: Abd flat, Abd u/s, EKG Admitted to med/surg for observation Present on Admission - Present on Admission Any Indicators Present on Admission: No Review of Systems - Review of Systems All systems: reviewed and no additional remarkable complaints except Past Patient History - Infectious Disease Hx of Infectious Diseases: None - Past Medical History & Family History Past Medical History?: Yes - Past Social History Smoking Status: Never Smoked Home Situation {Lives}: With Family - CARDIAC Hx Cardiac Disorders: Yes Hx Atrial Fibrillation: Yes Hx Cardia Arrhythmia: Yes Hx Hypercholesterolemia: Yes Hx Hypertension: Yes - PULMONARY Hx Respiratory Disorders: Yes - NEUROLOGICAL Hx Neurological Disorder: Yes HX Cerebrovascular Accident: Yes - HEENT Hx HEENT Problems: Yes Hx Glaucoma: Yes Other/Comment: (+) Left Homonymous Hemianopsia - RENAL Hx Chronic Kidney Disease: No - ENDOCRINE/METABOLIC Hx Endocrine Disorders: Yes Hx Diabetes Mellitus Type 2: Yes - HEMATOLOGICAL/ONCOLOGICAL Hx Blood Disorders: No Hx Human Immunodeficiency Virus (HIV): No - INTEGUMENTARY Hx Dermatological Problems: Yes Other/Comment: multiple excoriations to bilateral groin, sacrum, buttocks - MUSCULOSKELETAL/RHEUMATOLOGICAL Hx Musculoskeletal Disorders: Yes Hx Arthritis: Yes Hx Falls: No - GASTROINTESTINAL Hx Gastrointestinal Disorders: Yes Hx Diarrhea: Yes Hx Ulcer: Yes - GENITOURINARY/GYNECOLOGICAL Hx Genitourinary Disorders: Yes Hx Incontinence: Yes Hx Urinary Tract Infection: Yes - PSYCHIATRIC Hx Psychophysiologic Disorder: No Hx Substance Use: No - SURGICAL HISTORY Hx Surgeries: Yes Hx Joint Replacement: Yes (Left THR 2012) Hx Musculoskeletal Surgery: Yes - ANESTHESIA Hx Anesthesia: Yes Hx Anesthesia Reactions: No Hx Malignant Hyperthermia: No Has any member of the family had a problem w/ anesthesia?: No Meds Allergies/Adverse Reactions: Allergies Allergy/AdvReac Type Severity Reaction Status Date / Time No Known Allergies Allergy Verified 10/28/14 13:18 Physical Exam - Constitutional Appears: Non-toxic, No Acute Distress - Head Exam Head Exam: ATRAUMATIC, NORMOCEPHALIC - Eye Exam Eye Exam: EOMI Pupil Exam: PERRL - ENT Exam ENT Exam: Mucous Membranes Moist Additional comments: poor dentition, halitosis - Neck Exam Neck exam: Negative for: Lymphadenopathy - Respiratory Exam Respiratory Exam: Clear to Auscultation Bilateral, NORMAL BREATHING PATTERN. absent: Rales, Rhonchi, Wheezes, Respiratory Distress - Cardiovascular Exam Cardiovascular Exam: Clicks, Irregular Rhythm. absent: Gallop, JVD, RRR, Rubs, Systolic Murmur - GI/Abdominal Exam GI & Abdominal Exam: Normal Bowel Sounds, Soft. absent: Distended, Firm, Guarding, Hernia, Tenderness - Extremities Exam Extremities exam: Positive for: pedal pulses present. Negative for: calf tenderness, full ROM, pedal edema, tenderness Additional comments: superficial gluteal abrasions and groin abrasions secondary to skin maceration from prolonged diaper wear. - Neurological Exam Neurological exam: Alert, Motor Sensory Deficit, Oriented x3 Additional comments: left sided hemiplegia - Psychiatric Exam Psychiatric exam: Normal Affect, Normal Mood - Skin Skin Exam: Dry, Intact, Normal Color, Warm Results - Vital Signs Recent Vital Signs: Last Vital Signs Temp 97.8 F 09/01/16 08:44 Pulse 88 09/01/16 09:47 Resp 20 09/01/16 08:44 BP 134/81 09/01/16 09:47 Pulse Ox 99 09/01/16 08:44 - Labs Result Diagrams: 08/31/16 15:30 09/01/16 04:50 Labs: Laboratory Results - last 24 hr 09/01/16 09/01/16 09/01/16 04:50 05:25 08:15 Sodium 144 Potassium 3.8 Chloride 108 H Carbon Dioxide 22 Anion Gap 18 BUN 10 Creatinine 0.8 Est GFR ( Amer) > 60 Est GFR (Non-Af Amer) > 60 POC Glucose (mg/dL) 95 Random Glucose 93 Calcium 9.3 Total Bilirubin 1.1 AST 57 H D ALT 65 H D Alkaline Phosphatase 113 Total Protein 6.5 Albumin 2.9 L Globulin 3.6 Albumin/Globulin Ratio 0.8 L C. difficile Ag & Toxin Negative Assessment & Plan (1) Diarrhea, unspecified Assessment and Plan: -Given IVP NS 500ml in ER -CBC/CMP wnl -UA: elevated specific gravity at 1.031 -C diff toxin: negative -stool cx: pending Status: Acute Priority: Low (2) Atrial fibrillation, chronic Assessment and Plan: cardiology consult with Dr. Nirmal Myers appreciated Status: Chronic Priority: Low <Corwin Dow - Last Filed: 09/02/16 06:39> Results - Vital Signs Recent Vital Signs: Last Vital Signs Temp 98.4 F 09/01/16 16:26 Pulse 84 09/01/16 16:26 Resp 20 09/01/16 16:26 BP 108/73 09/01/16 16:26 Pulse Ox 98 09/01/16 16:26 - Labs Result Diagrams: 08/31/16 15:30 09/01/16 04:50 Labs: Laboratory Results - last 24 hr 09/01/16 09/01/16 09/01/16 08:15 11:28 15:58 POC Glucose (mg/dL) 128 H 110 C. difficile Ag & Toxin Negative Attending/Attestation - Attestation I have personally seen and examined this patient.: Yes I have fully participated in the care of the patient.: Yes I have reviewed all pertinent clinical information: Yes
--- NOTE | 2016-09-01 12:38 | CP.PCM.DIS ---
<Edi Stokes - Last Filed: 09/01/16 17:02> Provider - Provider Date of Admission: 08/31/16 20:19 Attending physician: Molina Samaniego MD Primary care physician: Molina Samaniego MD Consults: 09/01/16 01:37 Nursing Referral for Wound Care Routine Comment: Physician Instructions: Reason For Exam: multiple excoriations to sacrum/ buttocks/ groin Time Spent in preparation of Discharge (in minutes): 35 Diagnosis - Discharge Diagnosis (1) Diarrhea, unspecified Status: Acute Priority: Low (2) Atrial fibrillation, chronic Status: Chronic Priority: Low Hospital Course - Lab Results Lab Results: Most Recent Lab Values WBC 8.2 K/uL (4.8-10.8) 08/31/16 15:30 RBC 4.53 Mil/uL (3.80-5.20) 08/31/16 15:30 Hgb 12.6 g/dL (12.0-16.0) 08/31/16 15:30 Hct 39.0 % (34.0-47.0) 08/31/16 15:30 MCV 86.1 fl (81.0-99.0) 08/31/16 15:30 MCH 27.9 pg (27.0-31.0) 08/31/16 15:30 MCHC 32.4 g/dL (33.0-37.0) L 08/31/16 15:30 RDW 15.1 % (11.5-14.5) H 08/31/16 15:30 Plt Count 297 K/uL (130-400) 08/31/16 15:30 MPV 9.3 fl (7.2-11.7) 08/31/16 15:30 Neut % (Auto) 68.9 % (50.0-75.0) 08/31/16 15:30 Lymph % (Auto) 21.4 % (20.0-40.0) 08/31/16 15:30 Wise % (Auto) 8.3 % (0.0-10.0) 08/31/16 15:30 Eos % (Auto) 1.0 % (0.0-4.0) 08/31/16 15:30 Baso % (Auto) 0.4 % (0.0-2.0) 08/31/16 15:30 Neut # 5.6 K/uL (1.8-7.0) 08/31/16 15:30 Lymph # 1.8 K/uL (1.0-4.3) 08/31/16 15:30 Wise # 0.7 K/uL (0.0-0.8) 08/31/16 15:30 Eos # 0.1 K/uL (0.0-0.7) 08/31/16 15:30 Baso # 0.0 K/uL (0.0-0.2) 08/31/16 15:30 Sodium 144 mmol/l (132-148) 09/01/16 04:50 Potassium 3.8 MMOL/L (3.6-5.0) 09/01/16 04:50 Chloride 108 mmol/L (98-107) H 09/01/16 04:50 Carbon Dioxide 22 mmol/L (22-30) 09/01/16 04:50 Anion Gap 18 (10-20) 09/01/16 04:50 BUN 10 mg/dl (7-17) 09/01/16 04:50 Creatinine 0.8 mg/dL (0.7-1.2) 09/01/16 04:50 Est GFR ( Amer) > 60 09/01/16 04:50 Est GFR (Non-Af Amer) > 60 09/01/16 04:50 POC Glucose (mg/dL) 95 mg/dL (65-110) 09/01/16 05:25 Random Glucose 93 mg/dL (65-105) 09/01/16 04:50 Calcium 9.3 mg/dL (8.4-10.2) 09/01/16 04:50 Magnesium 1.6 MG/DL (1.6-2.3) 08/31/16 15:46 Total Bilirubin 1.1 mg/dl (0.2-1.3) 09/01/16 04:50 AST 57 U/L (14-36) H D 09/01/16 04:50 ALT 65 U/L (9-52) H D 09/01/16 04:50 Alkaline Phosphatase 113 U/L (38-126) 09/01/16 04:50 Troponin I < 0.0120 ng/mL (0.00-0.120) 08/31/16 15:46 Total Protein 6.5 G/DL (6.3-8.2) 09/01/16 04:50 Albumin 2.9 g/dL (3.5-5.0) L 09/01/16 04:50 Globulin 3.6 gm/dL (2.2-3.9) 09/01/16 04:50 Albumin/Globulin Ratio 0.8 (1.0-2.1) L 09/01/16 04:50 Lipase 206 U/L (23-300) 08/31/16 15:46 Urine Color [place] (YELLOW) 08/31/16 15:46 Urine Clarity Slighty-cloudy (Clear) 08/31/16 15:46 Urine pH 5.0 (5.0-8.0) 08/31/16 15:46 Ur Specific [place] 1.031 (1.003-1.030) H 08/31/16 15:46 Urine Protein 30 mg/dL (NEGATIVE) 08/31/16 15:46 Urine Glucose (UA) Neg mg/dL (Normal) 08/31/16 15:46 Urine Ketones Trace mg/dL (NEGATIVE) 08/31/16 15:46 Urine Blood Negative (NEGATIVE) 08/31/16 15:46 Urine Nitrate Negative (NEGATIVE) 08/31/16 15:46 Urine Bilirubin Negative (NEGATIVE) 08/31/16 15:46 Urine Urobilinogen 0.2-1.0 mg/dL (0.2-1.0) 08/31/16 15:46 Ur Leukocyte Esterase Neg [place]y/uL (Negative) 08/31/16 15:46 Urine RBC (Auto) 7 /hpf (0-3) H 08/31/16 15:46 Urine Microscopic WBC 3 /hpf (0-5) 08/31/16 15:46 Ur Squamous Epith Cells 2 /hpf (0-5) 08/31/16 15:46 Urine Bacteria Rare (<OCC) 08/31/16 15:46 C. 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 On admission CBC, CMP, abdominal xray and u/s were performed. All tests were found to be WNL. Further studies such as C diff were found to be negative. Cardiology was consulted with Dr. Nirmal Myers and she was cleared from a cardiac standpoint. Case was discussed with Dr. Dow. After an uneventful hospital the patient was discharged in stable condition to [place]. Discharge Exam - Head Exam Head Exam: ATRAUMATIC, NORMOCEPHALIC - Respiratory Exam Respiratory Exam: Clear to PA & Lateral, NORMAL BREATHING PATTERN, UNREMARKABLE - Cardiovascular Exam Cardiovascular Exam: Irregular Rhythm. absent: Gallop, JVD, Systolic Murmur - GI/Abdominal Exam GI & Abdominal Exam: Normal Bowel Sounds, Soft, Unremarkable. absent: Tenderness - Extremities Exam Extremities exam: pedal pulses present - Neurological Exam Neurological exam: Alert, Oriented x3 - Skin Skin Exam: Dry, Normal Color, Warm Discharge Plan - Follow Up Plan Condition: FAIR Disposition: TRANSF TO SNF Instructions: Dehydration (DC) Referrals: Molina Samaniego MD [Primary Care Provider] - <Corwin Dow - Last Filed: 09/02/16 06:41> Provider - Provider Date of Admission: 08/31/16 20:19 Attending physician: Molina Samaniego MD Primary care physician: Molina Samaniego MD Consults: 09/01/16 01:37 Nursing Referral for Wound Care Routine Comment: Physician Instructions: Reason For Exam: multiple excoriations to sacrum/ buttocks/ groin Hospital Course - Lab Results Lab Results: Most Recent Lab Values WBC 8.2 K/uL (4.8-10.8) 08/31/16 15:30 RBC 4.53 Mil/uL (3.80-5.20) 08/31/16 15:30 Hgb 12.6 g/dL (12.0-16.0) 08/31/16 15:30 Hct 39.0 % (34.0-47.0) 08/31/16 15:30 MCV 86.1 fl (81.0-99.0) 08/31/16 15:30 MCH 27.9 pg (27.0-31.0) 08/31/16 15:30 MCHC 32.4 g/dL (33.0-37.0) L 08/31/16 15:30 RDW 15.1 % (11.5-14.5) H 08/31/16 15:30 Plt Count 297 K/uL (130-400) 08/31/16 15:30 MPV 9.3 fl (7.2-11.7) 08/31/16 15:30 Neut % (Auto) 68.9 % (50.0-75.0) 08/31/16 15:30 Lymph % (Auto) 21.4 % (20.0-40.0) 08/31/16 15:30 Wise % (Auto) 8.3 % (0.0-10.0) 08/31/16 15:30 Eos % (Auto) 1.0 % (0.0-4.0) 08/31/16 15:30 Baso % (Auto) 0.4 % (0.0-2.0) 08/31/16 15:30 Neut # 5.6 K/uL (1.8-7.0) 08/31/16 15:30 Lymph # 1.8 K/uL (1.0-4.3) 08/31/16 15:30 Wise # 0.7 K/uL (0.0-0.8) 08/31/16 15:30 Eos # 0.1 K/uL (0.0-0.7) 08/31/16 15:30 Baso # 0.0 K/uL (0.0-0.2) 08/31/16 15:30 Sodium 144 mmol/l (132-148) 09/01/16 04:50 Potassium 3.8 MMOL/L (3.6-5.0) 09/01/16 04:50 Chloride 108 mmol/L (98-107) H 09/01/16 04:50 Carbon Dioxide 22 mmol/L (22-30) 09/01/16 04:50 Anion Gap 18 (10-20) 09/01/16 04:50 BUN 10 mg/dl (7-17) 09/01/16 04:50 Creatinine 0.8 mg/dL (0.7-1.2) 09/01/16 04:50 Est GFR ( Amer) > 60 09/01/16 04:50 Est GFR (Non-Af Amer) > 60 09/01/16 04:50 POC Glucose (mg/dL) 110 mg/dL (65-110) 09/01/16 15:58 Random Glucose 93 mg/dL (65-105) 09/01/16 04:50 Calcium 9.3 mg/dL (8.4-10.2) 09/01/16 04:50 Magnesium 1.6 MG/DL (1.6-2.3) 08/31/16 15:46 Total Bilirubin 1.1 mg/dl (0.2-1.3) 09/01/16 04:50 AST 57 U/L (14-36) H D 09/01/16 04:50 ALT 65 U/L (9-52) H D 09/01/16 04:50 Alkaline Phosphatase 113 U/L (38-126) 09/01/16 04:50 Troponin I < 0.0120 ng/mL (0.00-0.120) 08/31/16 15:46 Total Protein 6.5 G/DL (6.3-8.2) 09/01/16 04:50 Albumin 2.9 g/dL (3.5-5.0) L 09/01/16 04:50 Globulin 3.6 gm/dL (2.2-3.9) 09/01/16 04:50 Albumin/Globulin Ratio 0.8 (1.0-2.1) L 09/01/16 04:50 Lipase 206 U/L (23-300) 08/31/16 15:46 Urine Color [place] (YELLOW) 08/31/16 15:46 Urine Clarity Slighty-cloudy (Clear) 08/31/16 15:46 Urine pH 5.0 (5.0-8.0) 08/31/16 15:46 Ur Specific [place] 1.031 (1.003-1.030) H 08/31/16 15:46 Urine Protein 30 mg/dL (NEGATIVE) 08/31/16 15:46 Urine Glucose (UA) Neg mg/dL (Normal) 08/31/16 15:46 Urine Ketones Trace mg/dL (NEGATIVE) 08/31/16 15:46 Urine Blood Negative (NEGATIVE) 08/31/16 15:46 Urine Nitrate Negative (NEGATIVE) 08/31/16 15:46 Urine Bilirubin Negative (NEGATIVE) 08/31/16 15:46 Urine Urobilinogen 0.2-1.0 mg/dL (0.2-1.0) 08/31/16 15:46 Ur Leukocyte Esterase Neg Corey/uL (Negative) 08/31/16 15:46 Urine RBC (Auto) 7 /hpf (0-3) H 08/31/16 15:46 Urine Microscopic WBC 3 /hpf (0-5) 08/31/16 15:46 Ur Squamous Epith Cells 2 /hpf (0-5) 08/31/16 15:46 Urine Bacteria Rare (<OCC) 08/31/16 15:46 C. difficile Ag & Toxin Negative (NEGATIVE) 09/01/16 08:15 Attending/Attestation - Attestation I have personally seen and examined this patient.: Yes I have fully participated in the care of the patient.: Yes I have reviewed all pertinent clinical information, including history, physical exam and plan: Yes
--- NOTE | 2016-09-01 16:06 | CARD ---
APPROVED REPORT EKG Measurement Heart [id number] <Conclusion> Atrial fibrillation Abnormal ECG
[2016-09-01 16:26] VITALS: BP 108/73; PULSE 84; TEMP 98.4; O2SAT 98
[2016-09-01] MEDS ORDERED: Docusate-Senna 50 mg-8.6 mg Tab PO SCH (22:00)
== END 2016-09-01 17:36 ==
LOC: H.ER 14:40 → SUPCPDRO 14:40 → H.ERHOLD 20:19 → H.MEDSURG1 23:10
PROVIDERS: ADMIT Internal Medicine; ATTEND Internal Medicine
DX: R19.7 Diarrhea, unspecified (principal); I48.2 Chronic atrial fibrillation; E78.5 Hyperlipidemia, unspecified; G81.94 Hemiplegia, unspecified affecting left nondominant side; E11.9 Type 2 diabetes mellitus without complications; E66.09 Other obesity due to excess calories; E78.00 Pure hypercholesterolemia, unspecified; I10 Essential (primary) hypertension; Z96.642 Presence of left artificial hip joint; E86.0 Dehydration
CPT/HCPCS: 36415; 74000; 76705; 80053; 81003; 82948; 83690; 83735; 84484; 85025; 87045; 87086; 87230; 93005; 96360; 96374; 97162; 99285; G0378; G8978; G8979; J2405; J7040

== ENCOUNTER 2016-10-17 18:38 | Inpatient (IN) | payer MEDICARE, OTHER ==
--- NOTE | 2016-10-17 20:38 | ED PDOC ---
HPI: Female Pain Time Seen by Provider: 10/17/16 19:11 Chief Complaint (Nursing): GI Problem Chief Complaint (Provider): Stool Incontinence, Melena/Hematochezia History Per: Patient History/Exam Limitations: no limitations Onset/Duration Of Symptoms: Mins (just prior to arrival) Current Symptoms Are (Timing): Better Severity: Moderate Associated Symptoms: Nausea, Vomiting, Urinary Symptoms (urinary incontinence), Other (lightheadedness, dizziness; denies shortness of breath). denies: Chest Pain Additional Complaint(s): Adrienne Farfan is a 75 year old female, with no pertinent past medical history, who presents to the emergency department via EMS from [facility] for the evaluation of stool incontinence, inclusive of melena and hematochezia, that the patient experienced just prior to arrival. Patient was at physical therapy when she began to feel lightheaded and dizzy, and upon laying down to alleviate her symptoms, she urinated and defecated on herself. Associated nausea and one episode of vomiting was present prior to her urinary/stool incontinence. Denies chest pain, shortness of breath, or any other medical complaints as she is currently feeling completely better. PMD: Trent Linares Past Medical History Vital Signs: Last Vital Signs Temp 98.1 F 10/17/16 18:46 Pulse 94 H 10/17/16 18:46 Resp 20 10/17/16 18:46 BP 122/81 10/17/16 18:46 Pulse Ox 97 10/17/16 18:46 - Medical History PMH: Arthritis (osteoarthritis), Atrial Fibrillation, Cardia Arrhythmia, CVA, Diabetes (type 2), HTN, Hypercholesterolemia Denies: HIV, Chronic Kidney Disease Other PMH: Glaucoma, Left Homonymous Hemianopsia, UTI, Degenerative Joint Disease - Surgical History Other surgeries: Total Hip Replacement (2012) - Family History Family History: States: No Known Family Hx - Social History Current smoker - smoking cessation education provided: No Ex-Smoker (has not smoked in the last 12 months): No Alcohol: None Drugs: Denies - Home Medications Home Medications: Ambulatory Orders Medication Instructions Recorded Aluminum Hydroxide/Magnesium H 30 ml PO Q4 PRN 09/01/16 [Maalox 30 ml] Aspirin [Ecotrin] 81 mg PO DAILY 09/01/16 Docusate Sodium/Sennosides A 50 mg PO HS 09/01/16 [Senokot S 50 MG-8.6 MG] Lisinopril [Zestril] 20 mg PO DAILY 09/01/16 Magnesium Hydroxide [Milk Of 30 ml PO DAILY PRN 09/01/16 Magnesia] Metformin ER [Glucophage XR] 750 mg PO DAILY 09/01/16 Metoprolol Tartrate [Lopressor] 50 mg PO Q12 09/01/16 Ondansetron [Zofran Tab] 4 mg PO Q6 PRN 09/01/16 Rivaroxaban [Xarelto] 20 mg PO DAILY 09/01/16 Sertraline [Zoloft] 25 mg PO HS 09/01/16 - Allergies Allergies/Adverse Reactions: Allergies Allergy/AdvReac Type Severity Reaction Status Date / Time No Known Allergies Allergy Verified 10/28/14 13:18 Review of Systems ROS Statement: Except As Marked, All Systems Reviewed And Found Negative Cardiovascular: Positive for: Light Headedness. Negative for: Chest Pain Respiratory: Negative for: Shortness of Breath Gastrointestinal: Positive for: Nausea, Vomiting, Melena, Hematochezia Genitourinary Female: Positive for: Incontinence (urinary/stool) Neurological: Positive for: Dizziness Physical Exam - Reviewed Nursing Documentation Reviewed: Yes Vital Signs Reviewed: Yes - Physical Exam Appears: Positive for: Well, Non-toxic, No Acute Distress Head Exam: Positive for: ATRAUMATIC, NORMOCEPHALIC Skin: Positive for: Normal Color, Warm, DRY Cardiovascular/Chest: Positive for: Regular Rate, Rhythm. Negative for: Murmur Respiratory: Positive for: Normal Breath Sounds. Negative for: Respiratory Distress Gastrointestinal/Abdominal: Positive for: Normal Exam, Soft. Negative for: Tenderness, Guarding, Rebound Pelvic Exam: Positive for: External Exam Normal, Other (outside of her vagina is coated in dark, tarry stool) Back: Positive for: Normal Inspection. Negative for: L CVA Tenderness, R CVA Tenderness Rectal: Positive for: Normal Exam, Stool Is Heme: (dark blood), Black Stool, Blood Streaked Stool Neurologic/Psych: Positive for: Alert, Oriented - Laboratory Results Result Diagrams: 10/17/16 21:00 10/17/16 21:00 - ECG O2 Sat by Pulse Oximetry: 97 (RA) Pulse Ox Interpretation: Normal Medical Decision Making Medical Decision Makin:11 Initial Impression: Possible gastrointestinal bleed Initial Plan: * Type and Screen * Complete Blood Count * Comprehensive Metabolic Panel * Prothrombin Time * Partial Thromboplastin Time * Troponin I * Urinalysis * Reevaluation 1040PM: Spoke with GI Dr. Barroso who recommends stopping AC's at this time, PPI (no drip at this time given patient is stable) and admit. Admitted to resident Dr. Huynh under Dr. Linares. Scribe Attestation: Documented by Cassius Hansen, acting as a scribe for Ryan Fernandes MD. Provider Scribe Attestation: All medical record entries made by the Scribe were at my direction and personally dictated by me. I have reviewed the chart and agree that the record accurately reflects my personal performance of the history, physical exam, medical decision making, and the department course for this patient. I have also personally directed, reviewed, and agree with the discharge instructions and disposition. Disposition - Clinical Impression Clinical Impression: GI bleed - Disposition Disposition Time: 22:30 Condition: STABLE
[2016-10-17] MEDS ORDERED: Silver Sulfadiazine 1% Cream (20 gm) TOP STA (20:42)
[2016-10-17] MEDS ORDERED: Sterile Water 10 ML IV ONE (21:03)
[2016-10-17] MEDS ORDERED: Silver Sulfadiazine 1% CREAM (50 gm) ONE (21:03)
[2016-10-17 21:17] LABS: BASO # 0.1 K/uL (0.0-0.2); BASO % 0.8 % (0.0-2.0); EOS # 0.2 K/uL (0.0-0.7); EOS % 1.2 % (0.0-4.0); HEMATOCRIT 29.4 % (34.0-47.0); LYMPH # 2.6 K/uL (1.0-4.3); LYMPH % 18.7 % (20.0-40.0); MEAN CELL VOLUME 88.3 fl (81.0-99.0); MEAN CORPUSCULAR HEMOGLOBIN 28.4 pg (27.0-31.0); MEAN CORPUSCULAR HGB CONC 32.2 g/dL (33.0-37.0); MEAN PLATELET VOLUME 10.1 fl (7.2-11.7); MONO % 7.1 % (0.0-10.0); NEUT # 9.9 K/uL (1.8-7.0); NEUT % 72.2 % (50.0-75.0); RED CELL DISTRIBUTION WIDTH 16.5 % (11.5-14.5); WHITE BLOOD COUNT 13.7 K/uL (4.8-10.8)
[2016-10-17 21:31] LABS: ALB/GLOB RATIO 1.1 (1.0-2.1); ALKALINE PHOSPHATASE 81 U/L (38-126); ALT/SGPT 52 U/L (9-52); AST/SGOT 58 U/L (14-36); BILIRUBIN,TOTAL 0.5 mg/dl (0.2-1.3); BLOOD UREA NITROGEN 20 mg/dl (7-17); CALCIUM 9.6 mg/dL (8.4-10.2); CARBON DIOXIDE 25 mmol/L (22-30); CHLORIDE 105 mmol/L (98-107); GFR AFRICAN-AMERICAN > 60; GLUCOSE,RANDOM 152 mg/dL (65-105); POTASSIUM 4.2 MMOL/L (3.6-5.0); SODIUM 138 mmol/l (132-148); TOTAL PROTEIN 7.2 G/DL (6.3-8.2)
[2016-10-17 21:43] LABS: PARTIAL THROMBOPLASTIN TIME 25.7 Seconds (25.6-37.1)
[2016-10-17 23:21] LABS: PH,URINE 6.5 (5.0-8.0); URINE BILIRUBIN LARGE (NEGATIVE); URINE BLOOD LARGE (NEGATIVE); URINE COLOR DARK RED (YELLOW); URINE GLUCOSE (UA) NEGATIVE (Normal); URINE KETONE TRACE mg/dL (NEGATIVE)
[2016-10-17 23:22] LABS: RBC URINE 100 /hpf (0-3); URINE LEUKOCYTE ESTERASE LARGE Leu/uL (Negative); URINE PROTEIN >=300 mg/dL (NEGATIVE); WBC URINE 120 /hpf (0-5)
[2016-10-17 23:23] LABS: GRANULAR CAST 1 /lpf (0-1); URINE BACTERIA MANY (<OCC)
--- NOTE | 2016-10-17 23:37 | CP.PCM.HP ---
History of Present Illness - History of Present Illness History of Present Illness: CC: Melena 75F brought in from rehab for large episode of melena after PT today. Daughter reports her mother has been having dark stools for 1 week. Patient and family deny any associated SOB, chest pain, palpitations, but she did have 1 episode of NBNB vomiting today. Otherwise, patient has been at her baseline health status. PMH: CVA (08/03/16), A-fib, DM, HTN, HLD PSH: Hip Surgery Cardiology: Dr Myers PMD: Dr Linares ED COURSE VSS: 36.7- 94- 122/81- 20- 97% CBC: 13.7>9.5/29.4<259, MCV- 88.3, no left shift CMP: 138/4.2- 105/25- 20/0.8, Gluc- 152, AST/ALT- 58/52, ALP- 81, TProt/Alb-7.2/ 3.8 Trop #1: Neg T&S: PEND UA: Spec Grav- 1.030, Protein >300, Ketones- Trace, Blood- Large, Nitrate- POS, LE-Large GI Consult PPI CXR: unchanged from prior Present on Admission - Present on Admission Any Indicators Present on Admission: Yes History of Uncontrolled Diabetes: Yes Decubitus Ulcer Present: Yes Decubitus Ulcer Location: LEFT buttock Decubitus Ulcer Stage: II Review of Systems - Review of Systems All systems: reviewed and no additional remarkable complaints except - Gastrointestinal Gastrointestinal: Change in Stool Character, Vomiting (x1) Past Patient History - Infectious Disease Hx of Infectious Diseases: None - Past Medical History & Family History Past Medical History?: Yes - Past Social History Alcohol: None Drugs: Denies - CARDIAC Hx Atrial Fibrillation: Yes Hx Cardia Arrhythmia: Yes Hx Hypercholesterolemia: Yes Hx Hypertension: Yes - PULMONARY Hx Respiratory Disorders: Yes - NEUROLOGICAL HX Cerebrovascular Accident: Yes - HEENT Hx HEENT Problems: Yes Hx Glaucoma: Yes Other/Comment: (+) Left Homonymous Hemianopsia - RENAL Hx Chronic Kidney Disease: No - ENDOCRINE/METABOLIC Hx Diabetes Mellitus Type 2: Yes - HEMATOLOGICAL/ONCOLOGICAL Hx Human Immunodeficiency Virus (HIV): No - INTEGUMENTARY Hx Dermatological Problems: Yes Other/Comment: multiple excoriations to bilateral groin, sacrum, buttocks - MUSCULOSKELETAL/RHEUMATOLOGICAL Hx Arthritis: Yes (osteoarthritis) - GASTROINTESTINAL Hx Gastrointestinal Disorders: Yes Hx Diarrhea: Yes Hx Ulcer: No - GENITOURINARY/GYNECOLOGICAL Hx Genitourinary Disorders: Yes Hx Incontinence: Yes Hx Urinary Tract Infection: Yes - PSYCHIATRIC Hx Psychophysiologic Disorder: No Hx Substance Use: No - SURGICAL HISTORY Hx Surgeries: Yes Hx Joint Replacement: Yes (Left THR 2012) Hx Musculoskeletal Surgery: Yes - ANESTHESIA Hx Anesthesia: Yes Hx Anesthesia Reactions: No Hx Malignant Hyperthermia: No Meds Allergies/Adverse Reactions: Allergies Allergy/AdvReac Type Severity Reaction Status Date / Time No Known Allergies Allergy Verified 10/28/14 13:18 Physical Exam - Constitutional Appears: Well, Non-toxic, No Acute Distress - Head Exam Head Exam: ATRAUMATIC, NORMAL INSPECTION - Eye Exam Eye Exam: EOMI, Normal appearance - ENT Exam ENT Exam: Mucous Membranes Moist, Normal Exam - Neck Exam Neck exam: Positive for: Normal Inspection. Negative for: Lymphadenopathy - Respiratory Exam Respiratory Exam: Decreased Breath Sounds (b/l bases), Clear to Auscultation Bilateral, NORMAL BREATHING PATTERN. absent: Rales, Wheezes - Cardiovascular Exam Cardiovascular Exam: Irregular Rhythm. absent: JVD - GI/Abdominal Exam GI & Abdominal Exam: Normal Bowel Sounds, Soft, Tenderness (suprapubic) - Extremities Exam Extremities exam: Positive for: normal capillary refill, pedal pulses present. Negative for: calf tenderness, pedal edema - Neurological Exam Neurological exam: Alert, CN II-XII Intact, Oriented x3 - Expanded Neurological Exam Expanded Patient oriented to: person, place, time Neuro motor strength exam: Right Upper Extremity: 4, Left Lower Extremity: 2/1, Right Lower Extremity: 4 Coma Scale Eye Opening: SPONTANEOUS Coma Scale Motor Response: OBEYS COMMANDS Coma Scale Verbal: Oriented Coma Scale Total: 15 - Psychiatric Exam Psychiatric exam: Normal Affect, Normal Mood Results - Vital Signs Recent Vital Signs: Last Vital Signs Temp 36.7 C 10/17/16 18:46 Pulse 94 H 10/17/16 18:46 Resp 20 10/17/16 18:46 BP 122/81 10/17/16 18:46 Pulse Ox 97 10/17/16 22:53 - Labs Result Diagrams: 10/18/16 04:00 10/18/16 04:00 Labs: Laboratory Results - last 24 hr 10/17/16 22:53 Urine Color Dark red Urine Clarity Slight-cloudy Urine pH 6.5 Ur Specific [place] >= 1.030 Urine Protein >=300 Urine Glucose (UA) Negative Urine Ketones Trace H Urine Blood Large Urine Nitrate Positive H Urine Bilirubin Large Urine Urobilinogen 1.0 Ur Leukocyte Esterase Large Urine RBC (Auto) 100 H Urine Microscopic WBC 120 H Ur Squamous Epith Cells 3 Amorphous Sediment Few H Urine Bacteria Many H Hyaline Casts 2 Granular Casts (Auto) 1 Assessment & Plan (1) Gastrointestinal hemorrhage with melena Assessment and Plan: History and findings c/w UGIB, GI consult called, will HOLD Xarelto at this time given the drop in H/H. - Protonix 40mg, IVP, Q12H - NPO, IVF - GI Consult (Dr Barroso): HOLD ASA/Xarelto, IVP Protonix, Scope on Thursday - T&S complete - I&Os, Status: Acute (2) Cystitis Assessment and Plan: UA positive for blood, nitrates, and LE with associated suprapubic discomfort c/ w UTI vs. cystitis. Will start empirically with Rocephin and de-escalate as UCx dictates. - Straight Cath for urine specimen - UCx - Procalcitonin in AM - Rocephin 1g, IV, Daily Status: Acute (3) DVT prophylaxis Assessment and Plan: Currently UGIB, so b/l SCDs only at this time. Status: Acute (4) Atrial fibrillation, chronic Assessment and Plan: Chronic, rate-controlled but due to UGIB will HOLD Xarelto at this time. - Admit to Telemetry - c/w rate control medication - HOLD Xarelto - CONT Telemetry Status: Chronic Priority: Low (5) HLD (hyperlipidemia) Assessment and Plan: Chronic, stable. - c/w home medications Status: Chronic (6) Diabetes Assessment and Plan: Chronic, stable will hold Metformin at this time in the event contrast imaging is required. - Accu-checks - SSI, Moderate - Lantus 15U, SC, HS (TDD: 32.1U (0.3*107)) - Hypoglycemic Bundle Status: Chronic (7) History of CVA with residual deficit Assessment and Plan: Chronic, stable with LUE flaccid/hemiplegia and LLE cannot move on command and hemiparesis. - HOLD ASA - PT/OT Status: Acute (8) HTN (hypertension) Assessment and Plan: Chronic, stable. - c/w home medications Status: Chronic
[2016-10-17] MEDS ORDERED: Glucagon Recombinant 1 mg Inj IM PRN (23:49)
[2016-10-17] MEDS ORDERED: Dextrose 50% SYRINGE Inj (50 ml) IV PRN (23:49)
[2016-10-18 01:54] VITALS: BMI 37.0
[2016-10-18] MEDS: Potassium Ch 20mEq in D5-1/2NS 1,000 ML IV SCH ×4 (01:56→16:59)
[2016-10-18] MEDS ORDERED: Alum-Mag Hydrox-Simethicone Susp (30 mL) PO PRN (02:35)
[2016-10-18 05:14] LABS: BASO # 0.1 K/uL (0.0-0.2); BASO % 0.6 % (0.0-2.0); EOS # 0.1 K/uL (0.0-0.7); EOS % 0.6 % (0.0-4.0); HEMATOCRIT 27.4 % (34.0-47.0); LYMPH # 1.8 K/uL (1.0-4.3); LYMPH % 12.9 % (20.0-40.0); MEAN CELL VOLUME 88.3 fl (81.0-99.0); MEAN CORPUSCULAR HEMOGLOBIN 27.9 pg (27.0-31.0); MEAN CORPUSCULAR HGB CONC 31.6 g/dL (33.0-37.0); MEAN PLATELET VOLUME 9.5 fl (7.2-11.7); MONO # 0.8 K/uL (0.0-0.8); MONO % 5.8 % (0.0-10.0); NEUT # 10.9 K/uL (1.8-7.0); NEUT % 80.1 % (50.0-75.0); RED CELL DISTRIBUTION WIDTH 15.6 % (11.5-14.5); WHITE BLOOD COUNT 13.6 K/uL (4.8-10.8)
[2016-10-18 05:25] LABS: BLOOD UREA NITROGEN 16 mg/dl (7-17); CALCIUM 9.1 mg/dL (8.4-10.2); CARBON DIOXIDE 24 mmol/L (22-30); CHLORIDE 107 mmol/L (98-107); GFR AFRICAN-AMERICAN > 60; GLUCOSE,RANDOM 195 mg/dL (65-105); POTASSIUM 3.9 MMOL/L (3.6-5.0); SODIUM 139 mmol/l (132-148)
[2016-10-18] MEDS: Insulin Lispro (humaLOG) 100 Units/ml Inj SC SCH ×3 (07:55→17:22)
--- NOTE | 2016-10-18 09:59 | CP.PCM.PN ---
Subjective - Date & Time of Evaluation Date of Evaluation: 10/18/16 Time of Evaluation: 09:00 - Subjective Subjective: Patient seen and examined this AM. Daughter bedside, hx obtained from patient and daughter. YONNYA in July, d/c to [facility] in August, has been taking Xarelto and Aspirin since then. Patient had black stools x1 week. Patient had 1 BM this am. She denies abdominal pain, nausea, vomiting or diarrhea presently. Notes she eats regular food and it is NOT pureed for her. Patient to be seen by Cardiology and GI today. Objective - Vital Signs/Intake and Output Vital Signs (last 24 hours): Temp Pulse Resp BP Pulse Ox 97.9 F 96 H 20 102/68 98 10/18/16 08:00 10/18/16 09:26 10/18/16 08:00 10/18/16 09:26 10/18/16 08:00 - Medications Medications: Current Medications Al Hydrox/Mg Hydrox/Simethicone (Maalox Plus 30 Ml) 30 ml PO Q4 PRN PRN Reason: Indigestion / Heartburn Atorvastatin Calcium (Lipitor) 10 mg PO HS [facility] Dextrose (Dextrose 50% Inj) 0 ml IV STAT PRN; Protocol PRN Reason: Hyglycemia Protocol Dextrose (Glutose 15) 0 gm PO ONCE PRN; Protocol PRN Reason: Hypoglycemia Protocol Glucagon (Glucagen Diagnostic Kit) 0 mg IM STAT PRN; Protocol PRN Reason: Hypoglycemia Protocol Potassium Chloride/Dextrose/Sod Cl (Potassium Chl 20 Meq In D5-1/2ns) 1,000 mls @ 125 mls/hr IV .Q8H [facility] Stop: 10/18/16 23:52 Last Admin: 10/18/16 01:56 Dose: 125 mls/hr Ceftriaxone Sodium 1 gm/ (Sodium Chloride) 100 mls @ 100 mls/hr IV DAILY [facility] Last Admin: 10/18/16 01:55 Dose: 100 mls/hr Potassium Chloride/Dextrose/Sod Cl (Potassium Chl 20 Meq In D5-1/2ns) 1,000 mls @ 125 mls/hr IV .Q8H [facility] Stop: 10/19/16 07:37 Insulin Detemir (Levemir) 15 units SC HS [facility] Insulin Human Lispro (Humalog) 0 units SC ACTID [facility] PRN Reason: Protocol Last Admin: 10/18/16 07:55 Dose: 3 units Lisinopril (Zestril) 20 mg PO DAILY [facility] Last Admin: 10/18/16 09:23 Dose: 20 mg Metoprolol Tartrate (Lopressor) 50 mg PO Q12 [facility] Last Admin: 10/18/16 09:26 Dose: 50 mg Pantoprazole Sodium (Protonix Inj) 40 mg IVP Q12 [facility] Last Admin: 10/18/16 09:27 Dose: 40 mg Sertraline HCl (Zoloft) 25 mg PO HS [facility] Silver Sulfadiazine (Silvadene 1% 20 Gm) 1 ea TOP TID [facility] - Labs Labs: 10/18/16 04:00 10/18/16 04:00 PT 12.8 Seconds (9.8-13.1) 10/17/16 21:00 INR 1.1 (0.9-1.2) 10/17/16 21:00 APTT 25.7 Seconds (25.6-37.1) 10/17/16 21:00 - Constitutional Appears: Well, No Acute Distress - Head Exam Head Exam: NORMAL INSPECTION - Eye Exam Eye Exam: Normal appearance, PERRL - ENT Exam ENT Exam: Mucous Membranes Moist - Respiratory Exam Respiratory Exam: Clear to Ausculation Bilateral, NORMAL BREATHING PATTERN - Cardiovascular Exam Cardiovascular Exam: Irregular Rhythm, +S1, +S2 - GI/Abdominal Exam GI & Abdominal Exam: Soft, Normal Bowel Sounds. absent: Tenderness - Rectal Exam Rectal Exam: NORMAL INSPECTION Additional comments: rectal exam unremarkable, no gross blood on exam. [place] + - Extremities Exam Extremities Exam: absent: Calf Tenderness - Back Exam Additional comments: small stage 1 ulcer -sacrum - Neurological Exam Neurological Exam: Alert, Awake, CN II-XII Intact - Psychiatric Exam Psychiatric exam: Normal Mood - Skin Skin Exam: Dry, Intact Assessment and Plan - Assessment and Plan (Free Text) Assessment: 75 year old female with hx of CVA admitted for GI bleed with melena. Patient is currently hemodynamically stable. Bowel movements are now regular, no gross blood on stool. (1) Gastrointestinal hemorrhage with melena Assessment and Plan: Xarelto held, started protonix, will give regular diet and patient is for upper endoscopy on Thursday. - Protonix 40mg, IVP, Q12H - GI Consult (Dr Barroso): HOLD ASA/Xarelto, IVP Protonix, Scope on Thursday (2) Cystitis Assessment and Plan: - Rocephin started empirically, awaiting sensitivities - UCx - Procalcitonin pending - Rocephin 1g, IV, Daily (3) DVT prophylaxis Assessment and Plan: Currently UGIB, so b/l SCDs only at this time. (4) Atrial fibrillation, chronic Assessment and Plan: Chronic, rate-controlled but due to UGIB will HOLD Xarelto at this time. - Admit to Telemetry - c/w rate control medication - HOLD Xarelto - CONT Telemetry (5) HLD (hyperlipidemia) Assessment and Plan: Chronic, stable. - c/w home medications (6) Diabetes Assessment and Plan: Chronic, stable will hold Metformin at this time in the event contrast imaging is required. - Accu-checks - SSI, Moderate - Levemir 15U, SC, HS (TDD: 32.1U (0.3*107)) - Hypoglycemic Bundle (7) History of CVA with residual deficit Assessment and Plan: Chronic, stable with LUE flaccid/hemiplegia and LLE cannot move on command and hemiparesis. - HOLD ASA - PT/OT (8) HTN (hypertension) Assessment and Plan: Chronic, stable. - c/w home medications
--- NOTE | 2016-10-18 10:11 | CP.PCM.CON ---
History of Present Illness - History of Present Illness History of Present Illness: 75F brought in from rehab for large episode of melena after PT today. Daughter reports her mother has been having dark stools for 1 week. Patient and family deny any associated SOB, chest pain, palpitations, but she did have 1 episode of vomiting today. Otherwise, patient has been at her baseline health status. PMH: CVA (08/03/16), A-fib, DM, HTN, HLD PSH: Hip Surgery Pt is on Xarelto for Atrial Fibrillation EKG: atrial fibrillation @ 75 BPM Hgb: 8.7 Troponin: neg x 2 Past Patient History - Infectious Disease Hx of Infectious Diseases: None - Past Medical History & Family History Past Medical History?: Yes - Past Social History Alcohol: None Drugs: Denies - CARDIAC Hx Atrial Fibrillation: Yes Hx Cardia Arrhythmia: Yes Hx Hypercholesterolemia: Yes Hx Hypertension: Yes - PULMONARY Hx Respiratory Disorders: Yes - NEUROLOGICAL HX Cerebrovascular Accident: Yes - HEENT Hx HEENT Problems: Yes Hx Glaucoma: Yes Other/Comment: (+) Left Homonymous Hemianopsia - RENAL Hx Chronic Kidney Disease: No - ENDOCRINE/METABOLIC Hx Diabetes Mellitus Type 2: Yes - HEMATOLOGICAL/ONCOLOGICAL Hx Human Immunodeficiency Virus (HIV): No - INTEGUMENTARY Hx Dermatological Problems: Yes Other/Comment: multiple excoriations to bilateral groin, sacrum, buttocks - MUSCULOSKELETAL/RHEUMATOLOGICAL Hx Arthritis: Yes (osteoarthritis) - GASTROINTESTINAL Hx Gastrointestinal Disorders: Yes Hx Diarrhea: Yes Hx Ulcer: No - GENITOURINARY/GYNECOLOGICAL Hx Genitourinary Disorders: Yes Hx Incontinence: Yes Hx Urinary Tract Infection: Yes - PSYCHIATRIC Hx Psychophysiologic Disorder: No Hx Substance Use: No - SURGICAL HISTORY Hx Surgeries: Yes Hx Joint Replacement: Yes (Left THR 2012) Hx Musculoskeletal Surgery: Yes - ANESTHESIA Hx Anesthesia: Yes Hx Anesthesia Reactions: No Hx Malignant Hyperthermia: No Meds Allergies/Adverse Reactions: Allergies Allergy/AdvReac Type Severity Reaction Status Date / Time No Known Allergies Allergy Verified 10/28/14 13:18 - Medications Medications: Current Medications Acetaminophen (Tylenol 325mg Tab) 650 mg PO Q4 PRN PRN Reason: Pain, Mild (1-3) Al Hydrox/Mg Hydrox/Simethicone (Maalox Plus 30 Ml) 30 ml PO Q4 PRN PRN Reason: Indigestion / Heartburn Atorvastatin Calcium (Lipitor) 10 mg PO HS [facility] Dextrose (Dextrose 50% Inj) 0 ml IV STAT PRN; Protocol PRN Reason: Hyglycemia Protocol Dextrose (Glutose 15) 0 gm PO ONCE PRN; Protocol PRN Reason: Hypoglycemia Protocol Glucagon (Glucagen Diagnostic Kit) 0 mg IM STAT PRN; Protocol PRN Reason: Hypoglycemia Protocol Potassium Chloride/Dextrose/Sod Cl (Potassium Chl 20 Meq In D5-1/2ns) 1,000 mls @ 125 mls/hr IV .Q8H [facility] Stop: 10/18/16 23:52 Last Admin: 10/18/16 01:56 Dose: 125 mls/hr Ceftriaxone Sodium 1 gm/ (Sodium Chloride) 100 mls @ 100 mls/hr IV DAILY [facility] Last Admin: 10/18/16 01:55 Dose: 100 mls/hr Potassium Chloride/Dextrose/Sod Cl (Potassium Chl 20 Meq In D5-1/2ns) 1,000 mls @ 125 mls/hr IV .Q8H [facility] Stop: 10/19/16 07:37 Insulin Detemir (Levemir) 15 units SC HS [facility] Insulin Human Lispro (Humalog) 0 units SC ACTID [facility] PRN Reason: Protocol Last Admin: 10/18/16 07:55 Dose: 3 units Lisinopril (Zestril) 20 mg PO DAILY [facility] Last Admin: 10/18/16 09:23 Dose: 20 mg Metoprolol Tartrate (Lopressor) 50 mg PO Q12 [facility] Last Admin: 10/18/16 09:26 Dose: 50 mg Pantoprazole Sodium (Protonix Inj) 40 mg IVP Q12 [facility] Last Admin: 10/18/16 09:27 Dose: 40 mg Sertraline HCl (Zoloft) 25 mg PO HS [facility] Silver Sulfadiazine (Silvadene 1% 20 Gm) 1 ea TOP TID [facility] Physical Exam - Head Exam Head Exam: NORMAL INSPECTION - Eye Exam Eye Exam: Normal appearance - ENT Exam ENT Exam: Normal Exam - Neck Exam Neck exam: Positive for: Normal Inspection - Respiratory Exam Respiratory Exam: NORMAL BREATHING PATTERN - Cardiovascular Exam Cardiovascular Exam: Irregular Rhythm Results - Vital Signs Recent Vital Signs: Last Vital Signs Temp 97.9 F 10/18/16 08:00 Pulse 96 H 10/18/16 09:26 Resp 20 10/18/16 08:00 BP 102/68 10/18/16 09:26 Pulse Ox 98 10/18/16 08:00 - Labs Result Diagrams: 10/18/16 04:00 10/18/16 04:00 Labs: Laboratory Results - last 24 hr 10/17/16 10/18/16 10/18/16 22:53 01:14 04:00 WBC 13.6 H RBC 3.10 L Hgb 8.7 L Hct 27.4 L MCV 88.3 MCH 27.9 MCHC 31.6 L RDW 15.6 H Plt Count 200 MPV 9.5 Neut % (Auto) 80.1 H Lymph % (Auto) 12.9 L [place] % (Auto) 5.8 Eos % (Auto) 0.6 Baso % (Auto) 0.6 Neut # 10.9 H Lymph # 1.8 [place] # 0.8 Eos # 0.1 Baso # 0.1 Sodium Potassium Chloride Carbon Dioxide Anion Gap BUN Creatinine Est GFR ( Amer) Est GFR (Non-Af Amer) POC Glucose (mg/dL) 215 H Random Glucose Calcium Troponin I Urine Color Dark red Urine Clarity Slight-cloudy Urine pH 6.5 Ur Specific [place] >= 1.030 Urine Protein >=300 Urine Glucose (UA) Negative Urine Ketones Trace H Urine Blood Large Urine Nitrate Positive H Urine Bilirubin Large Urine Urobilinogen 1.0 Ur Leukocyte Esterase Large Urine RBC (Auto) 100 H Urine Microscopic WBC 120 H Ur Squamous Epith Cells 3 Amorphous Sediment Few H Urine Bacteria Many H Hyaline Casts 2 Granular Casts (Auto) 1 10/18/16 10/18/16 04:00 05:14 WBC RBC Hgb Hct MCV MCH MCHC RDW Plt Count MPV Neut % (Auto) Lymph % (Auto) [place] % (Auto) Eos % (Auto) Baso % (Auto) Neut # Lymph # [place] # Eos # Baso # Sodium 139 Potassium 3.9 Chloride 107 Carbon Dioxide 24 Anion Gap 12 BUN 16 Creatinine 0.8 Est GFR ( Amer) > 60 Est GFR (Non-Af Amer) > 60 POC Glucose (mg/dL) 200 H Random Glucose 195 H Calcium 9.1 Troponin I 0.0140 Urine Color Urine Clarity Urine pH Ur Specific [place] Urine Protein Urine Glucose (UA) Urine Ketones Urine Blood Urine Nitrate Urine Bilirubin Urine Urobilinogen Ur Leukocyte Esterase Urine RBC (Auto) Urine Microscopic WBC Ur Squamous Epith Cells Amorphous Sediment Urine Bacteria Hyaline Casts Granular Casts (Auto) Assessment & Plan (1) Gastrointestinal hemorrhage with melena Assessment and Plan: Hold Xarelto Status: Acute (2) Atrial fibrillation, chronic Assessment and Plan: Hold Xarelto for now Monitor pt's Af Rate is controlled Status: Chronic Priority: Low (3) History of CVA with residual deficit Status: Acute
--- NOTE | 2016-10-18 10:19 | RAD ---
HISTORY: GIB COMPARISON: 09/13/2016 FINDINGS: LUNGS: Mild increased pulmonary vascular congestion. PLEURA: No significant pleural effusion identified, no pneumothorax apparent. CARDIOVASCULAR: Enlarged cardiomediastinal silhouette. Enlarged pulmonary artery. OSSEOUS STRUCTURES: The osseous structures demonstrate degenerative changes. VISUALIZED UPPER ABDOMEN: Upper abdomen is suboptimally evaluated. OTHER FINDINGS: None. IMPRESSION: Increased pulmonary vascular congestion. Other findings as above.
[2016-10-18] MEDS: Silver Sulfadiazine 1% Cream (20 gm) TOP SCH ×3 (12:25→17:23)
--- NOTE | 2016-10-18 12:44 | CARD ---
APPROVED REPORT EKG Measurement Heart [id number] <Conclusion> Atrial fibrillation with rapid ventricular response Nonspecific ST and T wave abnormality Abnormal ECG
[2016-10-18 15:21] LABS: HEMATOCRIT 27.5 % (34.0-47.0)
[2016-10-18] MEDS: Insulin Detemir 100 Units/ml Inj SC SCH (22:17)
--- NOTE | 2016-10-18 23:53 | CP.PCM.CON ---
History of Present Illness - History of Present Illness History of Present Illness: 75 yo female on Xarelto for h/o CVA in July and admitted with melena and anemia. Her family noted dark stool for one week and was admitted after episode of dizzness and fecal incontinence at physical therapy. Review of Systems - Constitutional Constitutional: absent: Chills - EENT Eyes: absent: Blurred Vision Ears: absent: Decreased Hearing Nose/Mouth/Throat: absent: Epistaxis - Cardiovascular Cardiovascular: absent: Chest Pain - Respiratory Respiratory: absent: Cough - Gastrointestinal Gastrointestinal: absent: Abdominal Pain - Genitourinary Genitourinary: absent: Change in Urinary Stream Past Patient History - Infectious Disease Hx of Infectious Diseases: None - Past Medical History & Family History Past Medical History?: Yes - Past Social History Alcohol: None Drugs: Denies - CARDIAC Hx Atrial Fibrillation: Yes Hx Cardia Arrhythmia: Yes Hx Hypercholesterolemia: Yes Hx Hypertension: Yes - PULMONARY Hx Respiratory Disorders: Yes - NEUROLOGICAL HX Cerebrovascular Accident: Yes - HEENT Hx HEENT Problems: Yes Hx Glaucoma: Yes Other/Comment: (+) Left Homonymous Hemianopsia - RENAL Hx Chronic Kidney Disease: No - ENDOCRINE/METABOLIC Hx Diabetes Mellitus Type 2: Yes - HEMATOLOGICAL/ONCOLOGICAL Hx Human Immunodeficiency Virus (HIV): No - INTEGUMENTARY Hx Dermatological Problems: Yes Other/Comment: multiple excoriations to bilateral groin, sacrum, buttocks - MUSCULOSKELETAL/RHEUMATOLOGICAL Hx Arthritis: Yes (osteoarthritis) - GASTROINTESTINAL Hx Gastrointestinal Disorders: Yes Hx Diarrhea: Yes Hx Ulcer: No - GENITOURINARY/GYNECOLOGICAL Hx Genitourinary Disorders: Yes Hx Incontinence: Yes Hx Urinary Tract Infection: Yes - PSYCHIATRIC Hx Psychophysiologic Disorder: No Hx Substance Use: No - SURGICAL HISTORY Hx Surgeries: Yes Hx Joint Replacement: Yes (Left THR 2012) Hx Musculoskeletal Surgery: Yes - ANESTHESIA Hx Anesthesia: Yes Hx Anesthesia Reactions: No Hx Malignant Hyperthermia: No Meds Allergies/Adverse Reactions: Allergies Allergy/AdvReac Type Severity Reaction Status Date / Time No Known Allergies Allergy Verified 10/28/14 13:18 - Medications Medications: Current Medications Acetaminophen (Tylenol 325mg Tab) 650 mg PO Q4 PRN PRN Reason: Pain, Mild (1-3) Last Admin: 10/18/16 17:24 Dose: 650 mg Al Hydrox/Mg Hydrox/Simethicone (Maalox Plus 30 Ml) 30 ml PO Q4 PRN PRN Reason: Indigestion / Heartburn Atorvastatin Calcium (Lipitor) 10 mg PO [facility] Last Admin: 10/18/16 22:18 Dose: 10 mg Dextrose (Dextrose 50% Inj) 0 ml IV STAT PRN; Protocol PRN Reason: Hyglycemia Protocol Dextrose (Glutose 15) 0 gm PO ONCE PRN; Protocol PRN Reason: Hypoglycemia Protocol Glucagon (Glucagen Diagnostic Kit) 0 mg IM STAT PRN; Protocol PRN Reason: Hypoglycemia Protocol Potassium Chloride/Dextrose/Sod Cl (Potassium Chl 20 Meq In D5-1/2ns) 1,000 mls @ 125 mls/hr IV .Q8H [facility] Stop: 10/19/16 07:37 Last Admin: 10/18/16 16:59 Dose: Not Given Ceftriaxone Sodium 1 gm/ (Sodium Chloride) 100 mls @ 100 mls/hr IV DAILY@2300 [facility] Last Admin: 10/18/16 22:31 Dose: 100 mls/hr Insulin Detemir (Levemir) 15 units SC [facility] Last Admin: 10/18/16 22:17 Dose: 15 units Insulin Human Lispro (Humalog) 0 units SC ACTID [facility] PRN Reason: Protocol Last Admin: 10/18/16 17:22 Dose: 2 units Lisinopril (Zestril) 20 mg PO DAILY [facility] Last Admin: 10/18/16 09:23 Dose: 20 mg Metoprolol Tartrate (Lopressor) 50 mg PO Q12 [facility] Last Admin: 10/18/16 22:28 Dose: 50 mg Pantoprazole Sodium (Protonix Inj) 40 mg IVP Q12 [facility] Last Admin: 10/18/16 22:21 Dose: 40 mg Sertraline HCl (Zoloft) 25 mg PO [facility] Last Admin: 10/18/16 22:29 Dose: Not Given Silver Sulfadiazine (Silvadene 1% 20 Gm) 1 ea TOP TID [facility] Last Admin: 10/18/16 17:23 Dose: 1 applic Physical Exam - Head Exam Head Exam: ATRAUMATIC - Eye Exam Eye Exam: Normal appearance - ENT Exam ENT Exam: Mucous Membranes Moist - Neck Exam Neck exam: Positive for: Normal Inspection - Respiratory Exam Respiratory Exam: Clear to Auscultation Bilateral, NORMAL BREATHING PATTERN - GI/Abdominal Exam GI & Abdominal Exam: Normal Bowel Sounds, Soft. absent: Tenderness Results - Vital Signs Recent Vital Signs: Last Vital Signs Temp 98.3 F 10/18/16 15:41 Pulse 106 H 10/18/16 22:28 Resp 20 10/18/16 15:41 BP 114/76 10/18/16 22:28 Pulse Ox 100 10/18/16 15:41 - Labs Result Diagrams: 10/18/16 15:05 10/18/16 04:00 Labs: Laboratory Results - last 24 hr 10/18/16 10/18/16 10/18/16 01:14 04:00 04:00 WBC 13.6 H RBC 3.10 L Hgb 8.7 L Hct 27.4 L MCV 88.3 MCH 27.9 MCHC 31.6 L RDW 15.6 H Plt Count 200 MPV 9.5 Neut % (Auto) 80.1 H Lymph % (Auto) 12.9 L [place] % (Auto) 5.8 Eos % (Auto) 0.6 Baso % (Auto) 0.6 Neut # 10.9 H Lymph # 1.8 [place] # 0.8 Eos # 0.1 Baso # 0.1 Sodium 139 Potassium 3.9 Chloride 107 Carbon Dioxide 24 Anion Gap 12 BUN 16 Creatinine 0.8 Est GFR ( Amer) > 60 Est GFR (Non-Af Amer) > 60 POC Glucose (mg/dL) 215 H Random Glucose 195 H Calcium 9.1 Troponin I 0.0140 10/18/16 10/18/16 10/18/16 05:14 11:35 15:05 WBC RBC Hgb Hct MCV MCH MCHC RDW Plt Count MPV Neut % (Auto) Lymph % (Auto) [place] % (Auto) Eos % (Auto) Baso % (Auto) Neut # Lymph # [place] # Eos # Baso # Sodium Potassium Chloride Carbon Dioxide Anion Gap BUN Creatinine Est GFR ( Amer) Est GFR (Non-Af Amer) POC Glucose (mg/dL) 200 H 183 H Random Glucose Calcium Troponin I < 0.0120 10/18/16 10/18/16 10/18/16 15:05 15:58 21:53 WBC RBC Hgb 8.6 L Hct 27.5 L MCV MCH MCHC RDW Plt Count MPV Neut % (Auto) Lymph % (Auto) [place] % (Auto) Eos % (Auto) Baso % (Auto) Neut # Lymph # [place] # Eos # Baso # Sodium Potassium Chloride Carbon Dioxide Anion Gap BUN Creatinine Est GFR ( Amer) Est GFR (Non-Af Amer) POC Glucose (mg/dL) 166 H 158 H Random Glucose Calcium Troponin I Assessment & Plan (1) Gastrointestinal hemorrhage with melena Assessment and Plan: Presentation most c/w with upper GI bleed due to possible ulcer, gastritis or other upper GI lesion. Hold Xarelto for another couple of days. Continue pantoprazole. Upper endoscopy Thursday. Status: Acute
[2016-10-19] MEDS: Insulin Lispro (humaLOG) 100 Units/ml Inj SC SCH ×3 (06:49→17:10)
[2016-10-19 08:23] LABS: HEMATOCRIT 26.2 % (34.0-47.0); MEAN CELL VOLUME 88.8 fl (81.0-99.0); MEAN CORPUSCULAR HGB CONC 32.6 g/dL (33.0-37.0); RED CELL DISTRIBUTION WIDTH 16.4 % (11.5-14.5); WHITE BLOOD COUNT 8.5 K/uL (4.8-10.8)
[2016-10-19] MEDS: Silver Sulfadiazine 1% Cream (20 gm) TOP SCH ×3 (08:31→17:10)
--- NOTE | 2016-10-19 09:34 | CP.PCM.PN ---
Subjective - Date & Time of Evaluation Date of Evaluation: 10/19/16 Time of Evaluation: 08:00 - Subjective Subjective: Patient was seen and examined at bedside this morning. Patient appears comfortable but complaints of pain on the shoulder however tylenol is helping patient. Patient also stated her left lower extremity is weaker than right side of leg. Per nurse patient had bowel movement and no blood in the stool and brown color. Denies fever, chills, SOB, chest pain, N/V/D, headache and dizziness. Patient will be NPO midnight for endoscopy on Thursday. Objective - Vital Signs/Intake and Output Vital Signs (last 24 hours): Temp Pulse Resp BP Pulse Ox 97.8 F 103 H 20 121/70 99 10/19/16 07:51 10/19/16 08:34 10/19/16 07:51 10/19/16 08:34 10/19/16 07:51 Intake and Output: 10/19/16 10/19/16 06:59 18:59 Intake Total 2810 Output Total 6 Balance 2804 - Medications Medications: Current Medications Acetaminophen (Tylenol 325mg Tab) 650 mg PO Q4 PRN PRN Reason: Pain, Mild (1-3) Last Admin: 10/19/16 08:32 Dose: 650 mg Al Hydrox/Mg Hydrox/Simethicone (Maalox Plus 30 Ml) 30 ml PO Q4 PRN PRN Reason: Indigestion / Heartburn Atorvastatin Calcium (Lipitor) 10 mg PO [facility] Last Admin: 10/18/16 22:18 Dose: 10 mg Dextrose (Dextrose 50% Inj) 0 ml IV STAT PRN; Protocol PRN Reason: Hyglycemia Protocol Dextrose (Glutose 15) 0 gm PO ONCE PRN; Protocol PRN Reason: Hypoglycemia Protocol Glucagon (Glucagen Diagnostic Kit) 0 mg IM STAT PRN; Protocol PRN Reason: Hypoglycemia Protocol Ceftriaxone Sodium 1 gm/ (Sodium Chloride) 100 mls @ 100 mls/hr IV DAILY@2300 [facility] Last Admin: 10/18/16 22:31 Dose: 100 mls/hr Insulin Detemir (Levemir) 15 units SC [facility] Last Admin: 10/18/16 22:17 Dose: 15 units Insulin Human Lispro (Humalog) 0 units SC ACTID [facility] PRN Reason: Protocol Last Admin: 10/19/16 06:49 Dose: Not Given Lisinopril (Zestril) 20 mg PO DAILY [facility] Last Admin: 10/19/16 08:34 Dose: 20 mg Metoprolol Tartrate (Lopressor) 50 mg PO Q12 [facility] Last Admin: 10/19/16 08:29 Dose: 50 mg Pantoprazole Sodium (Protonix Inj) 40 mg IVP Q12 [facility] Last Admin: 10/19/16 08:30 Dose: 40 mg Sertraline HCl (Zoloft) 25 mg PO HS [facility] Last Admin: 10/18/16 22:29 Dose: Not Given Silver Sulfadiazine (Silvadene 1% 20 Gm) 1 ea TOP TID [facility] Last Admin: 10/19/16 08:31 Dose: 1 applic - Labs Labs: 10/19/16 06:30 10/18/16 04:00 PT 12.8 Seconds (9.8-13.1) 10/17/16 21:00 INR 1.1 (0.9-1.2) 10/17/16 21:00 APTT 25.7 Seconds (25.6-37.1) 10/17/16 21:00 - Constitutional Appears: Non-toxic, No Acute Distress - Head Exam Head Exam: NORMAL INSPECTION, NORMOCEPHALIC - Eye Exam Eye Exam: EOMI, Normal appearance, PERRL Pupil Exam: NORMAL ACCOMODATION - ENT Exam ENT Exam: Mucous Membranes Moist - Neck Exam Neck Exam: Full ROM - Respiratory Exam Respiratory Exam: Clear to Ausculation Bilateral, NORMAL BREATHING PATTERN - Cardiovascular Exam Cardiovascular Exam: REGULAR RHYTHM, RRR, +S1, +S2 - GI/Abdominal Exam GI & Abdominal Exam: Soft, Normal Bowel Sounds - Extremities Exam Additional comments: diminish sensation LLE than RLE - Back Exam Back Exam: Full ROM, NORMAL INSPECTION - Neurological Exam Neurological Exam: Alert, Awake, CN II-XII Intact, Oriented x3 - Psychiatric Exam Psychiatric exam: Normal Affect, Normal Mood - Skin Skin Exam: Dry, Intact, Normal Color, Warm Assessment and Plan - Assessment and Plan (Free Text) Assessment: 75 year old female with hx of CVA admitted for GI bleed with melena. Patient is currently hemodynamically stable. Bowel movements are now regular, no gross blood on stool. Plan: (1) Gastrointestinal hemorrhage with melena -stable H/H -8.5/26.2 -repeat h/h this PM -guac blood positive for blood -Xarelto held, -will give regular diet and patient is for upper endoscopy on Thursday. - Protonix 40mg, IVP, Q12H - GI Consulted (2) Cystitis - continue with Rocephin 1g IV -pending UCx and awaiting sensitivities - Procalcitonin pending (3) Atrial fibrillation, chronic -Chronic, rate-controlled - c/w rate control medication - HOLD Xarelto - monitor vitals (4) HLD (hyperlipidemia) -Chronic, stable. - c/w home medications (5) Diabetes -Chronic, stable will hold Metformin at this time in the event contrast imaging is required. - Accu-checks - SSI, Moderate - Levemir 15U, SC, HS (TDD: 32.1U (0.3*107)) - Hypoglycemic Bundle (6) History of CVA with residual deficit -Chronic, stable with LUE flaccid/hemiplegia and LLE cannot move on command and hemiparesis. - HOLD ASA - PT/OT (7) HTN (hypertension) -Chronic, stable. - c/w home medications (8) DVT prophylaxis -Currently UGIB, - SCDs for now
[2016-10-19 15:10] LABS: RBC URINE 4 /hpf (0-3); URINE BILIRUBIN NEGATIVE (NEGATIVE); URINE BLOOD MODERATE (NEGATIVE); URINE COLOR YELLOW (YELLOW); URINE GLUCOSE (UA) NEG (Normal); URINE KETONE NEGATIVE (NEGATIVE); URINE LEUKOCYTE ESTERASE LARGE Leu/uL (Negative); URINE PROTEIN NEGATIVE (NEGATIVE); URINE UROBILINOGEN 0.2-1.0 mg/dL (0.2-1.0); WBC URINE 12 /hpf (0-5)
[2016-10-19 15:28] LABS: HEMATOCRIT 27.6 % (34.0-47.0); MEAN CELL VOLUME 88.8 fl (81.0-99.0); MEAN CORPUSCULAR HEMOGLOBIN 28.7 pg (27.0-31.0); MEAN CORPUSCULAR HGB CONC 32.3 g/dL (33.0-37.0); RED CELL DISTRIBUTION WIDTH 16.8 % (11.5-14.5); WHITE BLOOD COUNT 8.6 K/uL (4.8-10.8)
--- NOTE | 2016-10-19 19:23 | CP.PCM.PN ---
Subjective - Date & Time of Evaluation Date of Evaluation: 10/19/16 Time of Evaluation: 19:21 - Subjective Subjective: Patient clinically doing well. Hgb is stable, no further observed bleeding, and no GI distress. Objective - Vital Signs/Intake and Output Vital Signs (last 24 hours): Temp Pulse Resp BP Pulse Ox 98.2 F 94 H 20 119/62 100 10/19/16 19:06 10/19/16 19:06 10/19/16 19:06 10/19/16 19:06 10/19/16 19:06 Intake and Output: 10/19/16 10/20/16 18:59 06:59 Intake Total 860 Balance 860 - Medications Medications: Current Medications Acetaminophen (Tylenol 325mg Tab) 650 mg PO Q4 PRN PRN Reason: Pain, Mild (1-3) Last Admin: 10/19/16 08:32 Dose: 650 mg Al Hydrox/Mg Hydrox/Simethicone (Maalox Plus 30 Ml) 30 ml PO Q4 PRN PRN Reason: Indigestion / Heartburn Atorvastatin Calcium (Lipitor) 10 mg PO [facility] Last Admin: 10/18/16 22:18 Dose: 10 mg Dextrose (Dextrose 50% Inj) 0 ml IV STAT PRN; Protocol PRN Reason: Hyglycemia Protocol Dextrose (Glutose 15) 0 gm PO ONCE PRN; Protocol PRN Reason: Hypoglycemia Protocol Glucagon (Glucagen Diagnostic Kit) 0 mg IM STAT PRN; Protocol PRN Reason: Hypoglycemia Protocol Home Med (Home Med) 1 unit OU [facility] Ceftriaxone Sodium 1 gm/ (Sodium Chloride) 100 mls @ 100 mls/hr IV DAILY@2300 [facility] Last Admin: 10/18/16 22:31 Dose: 100 mls/hr Insulin Detemir (Levemir) 15 units SC [facility] Last Admin: 10/18/16 22:17 Dose: 15 units Insulin Human Lispro (Humalog) 0 units SC ACTID [facility] PRN Reason: Protocol Last Admin: 10/19/16 17:10 Dose: 2 units Lisinopril (Zestril) 20 mg PO DAILY [facility] Last Admin: 10/19/16 08:34 Dose: 20 mg Metoprolol Tartrate (Lopressor) 50 mg PO Q12 [facility] Last Admin: 10/19/16 08:29 Dose: 50 mg Pantoprazole Sodium (Protonix Inj) 40 mg IVP DAILY [facility] Sertraline HCl (Zoloft) 25 mg PO HS [facility] Last Admin: 10/18/16 22:29 Dose: Not Given Silver Sulfadiazine (Silvadene 1% 20 Gm) 1 ea TOP TID [facility] Last Admin: 10/19/16 17:10 Dose: 1 applic - Labs Labs: 10/19/16 15:24 10/18/16 04:00 PT 12.8 Seconds (9.8-13.1) 10/17/16 21:00 INR 1.1 (0.9-1.2) 10/17/16 21:00 APTT 25.7 Seconds (25.6-37.1) 10/17/16 21:00 - Head Exam Head Exam: ATRAUMATIC - Eye Exam Eye Exam: Normal appearance - ENT Exam ENT Exam: Normal Exam - Neck Exam Neck Exam: Full ROM - Respiratory Exam Respiratory Exam: Clear to Ausculation Bilateral - Cardiovascular Exam Cardiovascular Exam: REGULAR RHYTHM, +S1, +S2 - GI/Abdominal Exam GI & Abdominal Exam: Soft, Normal Bowel Sounds. absent: Tenderness Assessment and Plan (1) Gastrointestinal hemorrhage with melena Assessment & Plan: Clinically has stabilized. Upper endoscopy following which we will need to discuss resuming anticoagulation. Status: Acute
[2016-10-19] MEDS: Insulin Detemir 100 Units/ml Inj SC SCH (21:28)
[2016-10-19] MEDS: TRAVATAN 0.004% OU SCH (21:36)
[2016-10-19] MEDS ORDERED: Latanoprost 0.005% Opht SOUTION OU SCH (22:00)
[2016-10-20] MEDS ORDERED: Potassium Chl 40 mEq in D5-1/2 1,000 ML IV SCH (00:01)
--- NOTE | 2016-10-20 06:36 | CP.PCM.PN ---
Addendum entered and electronically signed by Demarcus Mayfield MD 10/20/16 17: 28: Neurology recommendations appreciated: resume xarelto, hold aspirin. Home with PT/OT. Original Note: <Demarcus Mayfield - Last Filed: 10/20/16 16:34> Subjective - Date & Time of Evaluation Date of Evaluation: 10/20/16 Time of Evaluation: 07:20 - Subjective Subjective: Patient is for endoscopy today. Seen this AM. NPO for EGD. No complaints at time of visit this AM. Denies h/a, chest pain, dyspnea, nausea or vomiting, no diarrhea. Neuro consult today. Objective - Vital Signs/Intake and Output Vital Signs (last 24 hours): Temp Pulse Resp BP Pulse Ox 98 F 87 20 118/79 100 10/20/16 04:39 10/20/16 04:39 10/20/16 04:39 10/20/16 04:39 10/20/16 04:39 Intake and Output: 10/19/16 10/20/16 18:59 06:59 Intake Total 860 500 Balance 860 500 - Medications Medications: Current Medications Acetaminophen (Tylenol 325mg Tab) 650 mg PO Q4 PRN PRN Reason: Pain, Mild (1-3) Last Admin: 10/19/16 08:32 Dose: 650 mg Al Hydrox/Mg Hydrox/Simethicone (Maalox Plus 30 Ml) 30 ml PO Q4 PRN PRN Reason: Indigestion / Heartburn Atorvastatin Calcium (Lipitor) [address] [facility] Last Admin: 10/19/16 21:35 Dose: 10 mg Dextrose (Dextrose 50% Inj) 0 ml IV STAT PRN; Protocol PRN Reason: Hyglycemia Protocol Dextrose (Glutose 15) 0 gm PO ONCE PRN; Protocol PRN Reason: Hypoglycemia Protocol Glucagon (Glucagen Diagnostic Kit) 0 mg IM STAT PRN; Protocol PRN Reason: Hypoglycemia Protocol Home Med (Home Med) [address] [facility] Last Admin: 10/19/16 21:36 Dose: 1 unit Ceftriaxone Sodium 1 gm/ (Sodium Chloride) 100 mls @ 100 mls/hr IV DAILY@2300 [facility] Last Admin: 10/19/16 22:48 Dose: 100 mls/hr Potassium Chloride/Dextrose/Sod Cl (Potassium Chl 40 Meq In D5-1/2ns) 1,000 mls @ 100 mls/hr IV .Q10H [facility] Stop: 10/20/16 20:35 Last Admin: 10/20/16 01:20 Dose: 100 mls/hr Insulin Detemir (Levemir) [address] [facility] Last Admin: 10/19/16 21:28 Dose: 15 units Insulin Human Lispro (Humalog) 0 units SC ACTID [facility] PRN Reason: Protocol Last Admin: 10/19/16 17:10 Dose: 2 units Lisinopril (Zestril) 20 mg PO DAILY [facility] Last Admin: 10/19/16 08:34 Dose: 20 mg Metoprolol Tartrate (Lopressor) 50 mg PO Q12 [facility] Last Admin: 10/19/16 21:29 Dose: 50 mg Pantoprazole Sodium (Protonix Inj) 40 mg IVP DAILY [facility] Sertraline HCl (Zoloft) 25 mg PO HS [facility] Last Admin: 10/19/16 21:31 Dose: Not Given Silver Sulfadiazine (Silvadene 1% 20 Gm) 1 ea TOP TID [facility] Last Admin: 10/19/16 17:10 Dose: 1 applic - Labs Labs: 10/19/16 15:24 10/18/16 04:00 PT 12.8 Seconds (9.8-13.1) 10/17/16 21:00 INR 1.1 (0.9-1.2) 10/17/16 21:00 APTT 25.7 Seconds (25.6-37.1) 10/17/16 21:00 - Constitutional Appears: No Acute Distress - Head Exam Head Exam: NORMAL INSPECTION - Eye Exam Eye Exam: Normal appearance - ENT Exam ENT Exam: Mucous Membranes Moist - Respiratory Exam Respiratory Exam: Clear to Ausculation Bilateral, NORMAL BREATHING PATTERN - Cardiovascular Exam Cardiovascular Exam: REGULAR RHYTHM, +S1, +S2 - GI/Abdominal Exam GI & Abdominal Exam: Soft, Normal Bowel Sounds. absent: Tenderness - Extremities Exam Extremities Exam: absent: Tenderness - Neurological Exam Neurological Exam: Alert, Awake, CN II-XII Intact, Motor Sensory Deficit (left lower and upper extremity) Additional comments: left upper extremity in sling - Psychiatric Exam Psychiatric exam: Flat Affect - Skin Skin Exam: Dry, Intact, Normal Color Assessment and Plan - Assessment and Plan (Free Text) Assessment: 75 year old female with hx of CVA admitted for GI bleed with melena. Patient is currently hemodynamically stable. Bowel movements are now regular, no gross blood on stool. Patient seen by cardio, GI and neuro today. follow up EGD report. (1) Gastrointestinal hemorrhage with melena Assessment and Plan: -resolved -s/p upper endoscopy, appreciate GI (Dr. Barroso) recommendations: gastritis and duodenitis, no active bleeding or ulcer. -Restart Xarelto, continue Protonix (2) Cystitis Assessment and Plan: - Rocephin started empirically, awaiting sensitivities - UCx pending - Procalcitonin: 0.08 - Rocephin 1g, IV, Daily (3) DVT prophylaxis Assessment and Plan: SCDs for now (4) Atrial fibrillation, chronic Assessment and Plan: Chronic, rate-controlled restart xarelto - c/w rate control medication -appreciate cardiology recommendations (Dr. Marcia Myers); neuro eval (5) HLD (hyperlipidemia) Assessment and Plan: Chronic, stable. - c/w home medications (6) Diabetes Assessment and Plan: Chronic, stable will hold Metformin at this time in the event contrast imaging is required. - Accu-checks - SSI, Moderate - Levemir 15U, SC, HS - Hypoglycemic Bundle (7) History of CVA with residual deficit Assessment and Plan: Chronic, stable with left hemiplegia -Awaiting neurology recommendations. - HOLD ASA - PT/OT (8) HTN (hypertension) Assessment and Plan: Chronic, stable. - c/w home medications <Trent Linares - Last Filed: 10/20/16 18:48> Objective - Vital Signs/Intake and Output Vital Signs (last 24 hours): Temp Pulse Resp BP Pulse Ox 98.1 F 77 20 132/84 96 10/20/16 15:50 10/20/16 16:29 10/20/16 15:50 10/20/16 15:50 10/20/16 16:29 Intake and Output: 10/20/16 10/20/16 06:59 18:59 Intake Total 500 1470 Balance 500 1470 - Medications Medications: Current Medications Acetaminophen (Tylenol 325mg Tab) 650 mg PO Q4 PRN PRN Reason: Pain, Mild (1-3) Last Admin: 10/19/16 08:32 Dose: 650 mg Al Hydrox/Mg Hydrox/Simethicone (Maalox Plus 30 Ml) 30 ml PO Q4 PRN PRN Reason: Indigestion / Heartburn Atorvastatin Calcium (Lipitor) [address] [facility] Last Admin: 10/19/16 21:35 Dose: 10 mg Dextrose (Dextrose 50% Inj) 0 ml IV STAT PRN; Protocol PRN Reason: Hyglycemia Protocol Dextrose (Glutose 15) 0 gm PO ONCE PRN; Protocol PRN Reason: Hypoglycemia Protocol Glucagon (Glucagen Diagnostic Kit) 0 mg IM STAT PRN; Protocol PRN Reason: Hypoglycemia Protocol Home Med (Home Med) [address] [facility] Last Admin: 10/19/16 21:36 Dose: 1 unit Ceftriaxone Sodium 1 gm/ (Sodium Chloride) 100 mls @ 100 mls/hr IV DAILY@2300 [facility] Last Admin: 10/19/16 22:48 Dose: 100 mls/hr Insulin Detemir (Levemir) [address] [facility] Last Admin: 10/19/16 21:28 Dose: 15 units Insulin Human Lispro (Humalog) 0 units SC ACTID [facility] PRN Reason: Protocol Last Admin: 10/20/16 17:51 Dose: 2 units Lisinopril (Zestril) 20 mg PO DAILY [facility] Last Admin: 10/20/16 09:00 Dose: 20 mg Metoprolol Tartrate (Lopressor) 50 mg PO Q12 [facility] Last Admin: 10/20/16 09:40 Dose: 50 mg Nystatin (Nystop Topical Powder) 1 applic TOP TID [facility] Pantoprazole Sodium (Protonix Ec Tab) 40 mg PO DAILY [facility] Rivaroxaban (Xarelto) 20 mg PO QD5 [facility] PRN Reason: Protocol Stop: 10/21/16 17:01 Last Admin: 10/20/16 17:52 Dose: 20 mg - Labs Labs: 10/19/16 15:24 10/18/16 04:00 PT 12.8 Seconds (9.8-13.1) 10/17/16 21:00 INR 1.1 (0.9-1.2) 10/17/16 21:00 APTT 25.7 Seconds (25.6-37.1) 10/17/16 21:00 Attending/Attestation - Attestation I have personally seen and examined this patient.: Yes I have fully participated in the care of the patient.: Yes I have reviewed all pertinent clinical information, including history, physical exam and plan: Yes
[2016-10-20] MEDS: Insulin Lispro (humaLOG) 100 Units/ml Inj SC SCH ×3 (07:55→17:51)
--- NOTE | 2016-10-20 09:43 | CP.PCM.PN ---
Subjective - Date & Time of Evaluation Date of Evaluation: 10/20/16 Time of Evaluation: 09:30 - Subjective Subjective: Feels comfortable, alert, awake, coherent A Fib at 70-80 BPM BP 136/70 mm HG No signs of CHF Has been off of Xarelto and ASA Hb/HCT stable Going for GI W/U with endoscopy today. Will jamison Neurologic evaluation while she is here. Objective - Vital Signs/Intake and Output Vital Signs (last 24 hours): Temp Pulse Resp BP Pulse Ox 98.1 F 96 H 20 131/82 100 10/20/16 08:00 10/20/16 08:00 10/20/16 08:00 10/20/16 08:00 10/20/16 08:00 Intake and Output: 10/20/16 10/20/16 06:59 18:59 Intake Total 500 Balance 500 - Medications Medications: Current Medications Acetaminophen (Tylenol 325mg Tab) 650 mg PO Q4 PRN PRN Reason: Pain, Mild (1-3) Last Admin: 10/19/16 08:32 Dose: 650 mg Al Hydrox/Mg Hydrox/Simethicone (Maalox Plus 30 Ml) 30 ml PO Q4 PRN PRN Reason: Indigestion / Heartburn Atorvastatin Calcium (Lipitor) 10 mg PO [facility] Last Admin: 10/19/16 21:35 Dose: 10 mg Dextrose (Dextrose 50% Inj) 0 ml IV STAT PRN; Protocol PRN Reason: Hyglycemia Protocol Dextrose (Glutose 15) 0 gm PO ONCE PRN; Protocol PRN Reason: Hypoglycemia Protocol Glucagon (Glucagen Diagnostic Kit) 0 mg IM STAT PRN; Protocol PRN Reason: Hypoglycemia Protocol Home Med (Home Med) 1 unit OU [facility] Last Admin: 10/19/16 21:36 Dose: 1 unit Ceftriaxone Sodium 1 gm/ (Sodium Chloride) 100 mls @ 100 mls/hr IV DAILY@2300 [facility] Last Admin: 10/19/16 22:48 Dose: 100 mls/hr Potassium Chloride/Dextrose/Sod Cl (Potassium Chl 40 Meq In D5-1/2ns) 1,000 mls @ 100 mls/hr IV .Q10H [facility] Stop: 10/20/16 20:35 Last Admin: 10/20/16 01:20 Dose: 100 mls/hr Insulin Detemir (Levemir) 15 units SC [facility] Last Admin: 10/19/16 21:28 Dose: 15 units Insulin Human Lispro (Humalog) 0 units SC ACTID [facility] PRN Reason: Protocol Last Admin: 10/20/16 07:55 Dose: Not Given Lisinopril (Zestril) 20 mg PO DAILY [facility] Last Admin: 10/19/16 08:34 Dose: 20 mg Metoprolol Tartrate (Lopressor) 50 mg PO Q12 [facility] Last Admin: 10/19/16 21:29 Dose: 50 mg Pantoprazole Sodium (Protonix Inj) 40 mg IVP DAILY [facility] Sertraline HCl (Zoloft) 25 mg PO HS [facility] Last Admin: 10/19/16 21:31 Dose: Not Given Silver Sulfadiazine (Silvadene 1% 20 Gm) 1 ea TOP TID [facility] Last Admin: 10/19/16 17:10 Dose: 1 applic - Labs Labs: 10/19/16 15:24 10/18/16 04:00 PT 12.8 Seconds (9.8-13.1) 10/17/16 21:00 INR 1.1 (0.9-1.2) 10/17/16 21:00 APTT 25.7 Seconds (25.6-37.1) 10/17/16 21:00
[2016-10-20] MEDS ORDERED: Propofol 10 mg/ml Inj (20 ML) ONE (12:02)
[2016-10-20] MEDS ORDERED: Lactated Ringer's 500 ML IV ONE ×2 (12:04→12:17)
--- NOTE | 2016-10-20 14:29 | CP.PCM.PN ---
Subjective - Date & Time of Evaluation Date of Evaluation: 10/20/16 Time of Evaluation: 14:22 - Subjective Subjective: Patient with no further observed bleeding and had upper endoscopy earlier. Objective - Vital Signs/Intake and Output Vital Signs (last 24 hours): Temp Pulse Resp BP Pulse Ox 96.8 F L 73 18 110/70 99 10/20/16 12:45 10/20/16 12:45 10/20/16 12:45 10/20/16 12:45 10/20/16 12:45 Intake and Output: 10/20/16 10/20/16 06:59 18:59 Intake Total 500 110 Balance 500 110 - Medications Medications: Current Medications Acetaminophen (Tylenol 325mg Tab) 650 mg PO Q4 PRN PRN Reason: Pain, Mild (1-3) Last Admin: 10/19/16 08:32 Dose: 650 mg Al Hydrox/Mg Hydrox/Simethicone (Maalox Plus 30 Ml) 30 ml PO Q4 PRN PRN Reason: Indigestion / Heartburn Atorvastatin Calcium (Lipitor) 10 mg PO [facility] Last Admin: 10/19/16 21:35 Dose: 10 mg Dextrose (Dextrose 50% Inj) 0 ml IV STAT PRN; Protocol PRN Reason: Hyglycemia Protocol Dextrose (Glutose 15) 0 gm PO ONCE PRN; Protocol PRN Reason: Hypoglycemia Protocol Glucagon (Glucagen Diagnostic Kit) 0 mg IM STAT PRN; Protocol PRN Reason: Hypoglycemia Protocol Home Med (Home Med) 1 unit OU [facility] Last Admin: 10/19/16 21:36 Dose: 1 unit Ceftriaxone Sodium 1 gm/ (Sodium Chloride) 100 mls @ 100 mls/hr IV DAILY@2300 [facility] Last Admin: 10/19/16 22:48 Dose: 100 mls/hr Potassium Chloride/Dextrose/Sod Cl (Potassium Chl 40 Meq In D5-1/2ns) 1,000 mls @ 100 mls/hr IV .Q10H [facility] Stop: 10/20/16 20:35 Last Admin: 10/20/16 01:20 Dose: 100 mls/hr Insulin Detemir (Levemir) 15 units SC [facility] Last Admin: 10/19/16 21:28 Dose: 15 units Insulin Human Lispro (Humalog) 0 units [facility] PRN Reason: Protocol Last Admin: 10/20/16 07:55 Dose: Not Given Lisinopril (Zestril) 20 mg PO DAILY [facility] Last Admin: 10/19/16 08:34 Dose: 20 mg Metoprolol Tartrate (Lopressor) 50 mg PO Q12 [facility] Last Admin: 10/20/16 09:40 Dose: 50 mg Nystatin (Nystop Topical Powder) 1 applic TOP TID [facility] Pantoprazole Sodium (Protonix Ec Tab) 40 mg PO DAILY [facility] Rivaroxaban (Xarelto) 20 mg PO QD5 [facility] PRN Reason: Protocol Stop: 10/21/16 17:01 Silver Sulfadiazine (Silvadene 1% 20 Gm) 1 ea TOP TID [facility] Last Admin: 10/19/16 17:10 Dose: 1 applic - Labs Labs: 10/19/16 15:24 10/18/16 04:00 PT 12.8 Seconds (9.8-13.1) 10/17/16 21:00 INR 1.1 (0.9-1.2) 10/17/16 21:00 APTT 25.7 Seconds (25.6-37.1) 10/17/16 21:00 - Head Exam Head Exam: ATRAUMATIC - Eye Exam Eye Exam: Normal appearance Pupil Exam: NORMAL ACCOMODATION - ENT Exam ENT Exam: Normal Exam - Respiratory Exam Respiratory Exam: Clear to Ausculation Bilateral - Cardiovascular Exam Cardiovascular Exam: REGULAR RHYTHM, +S1, +S2 - GI/Abdominal Exam GI & Abdominal Exam: Normal Bowel Sounds Assessment and Plan (1) Gastrointestinal hemorrhage with melena Assessment & Plan: Upper endoscopy showed gastritis and duodenitis but no bleeding or ulcers. Patient states she was taking Xarelto 20 mg BID at home. Was on Zoloft untill a few weeks ago. Will restart Xarelto 20 mg daily. Awaiting neuro input advice as to what would be minimal acceptable anticoagulation regimen. Avoid use of SSRI unless clearly helpful clinically. Maintain on pantoprazole for now . Gastric biopsies pending Status: Acute
[2016-10-20] MEDS: Silver Sulfadiazine 1% Cream (20 gm) TOP SCH (15:42)
--- NOTE | 2016-10-20 16:49 | CON ---
DATE: 10/20/2016 CHIEF COMPLAINT: Evaluation status post CVA with recently melena episode. HISTORY OF PRESENT ILLNESS: This is a 75-year-old woman who is well known to my practice, whom I rec ently saw on 10/13/2016 in my office with a history of CVA, who had a stroke on 08/01/2016 and a righ t frontotemporal parietal infarct, moderate size, with a history of right carotid artery stenosis cau sing left-sided hemiplegia and left homonymous hemianopsia, status post physical and occupational the rapy and history of atrial fibrillation on Xarelto and on a baby aspirin for antiplatelet therapy for stroke prevention, hypertension, dyslipidemia and history of diabetes, who was brought in because wh ile she at rehab, had a large episode of melena and was having dark stools for 1 week. Therefore, was brought in and noted to have a low hemoglobin and underwent GI evaluation with upper endoscopy, ic h showed gastritis and duodenitis, but no bleeding ulcers. Currently, she says has left hemidense sp astic hemiplegia from prior CVA. 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 PAST MEDICAL HISTORY: History of acute right frontotemporal infarct in 08/01/2016, history of right carotid artery stenosis, history of atrial fibrillation, hyperlipidemia, diabetes type 2. REVIEW OF SYSTEMS: A 14-point review of systems negative except in HPI. FAMILY HISTORY: Noncontributory. MEDICATIONS: Reviewed via nursing reconciliation sheet. ALLERGIES: No known drug allergies. SOCIAL HISTORY: No illicit drug use, smoking, or ETOH abuse. PHYSICAL EXAMINATION: VITAL SIGNS: Temperature of 98.1, pulse rate 79, blood pressure 132/84, respiratory rate 20, oxygen saturation 100% on room air. GENERAL: The patient is sitting up in bed in no acute distress. HEENT: Atraumatic, normocephalic. PERRLA. Extraocular muscles intact. NECK: Supple, no JVD, no adenopathy noted. LUNGS: Clear to auscultation. No adventitious sounds. HEART: S1, S2, normal rate and rhythm. No murmurs, rubs, or gallops. ABDOMEN: Soft, nontender, nondistended. Bowel sounds present. EXTREMITIES: No clubbing, no cyanosis. Peripheral pulses 2+ bilaterally, has a sacral decubitus. NEUROLOGIC: The patient is alert, oriented to person and place, not to month and year. Speech is fl uent, without errors. She knows the cereal chemist. Recall after 5 minutes is 1 out of 3. Cranial nerves II-XII for mild residual left facial droop. MOTOR: Has a dense left hemispastic hemiparesis. Toes are equivocal. SENSORY: Decreased light touch and pinprick up to the calves bilaterally. Decreased vibration of th e toes. Deep tendon reflexes 1+, absent at the knees and ankles. COORDINATION: [id number] intact on the right but difficult on the left due to left hemispastic h emiplegia. LABORATORY DATA: Hemoglobin of 8.9, hematocrit 27.6, platelet count of 214. Sodium is 190. ASSESSMENT AND PLAN: 1. This is a 75-year-old -[place] woman with history of hypertension, dyslipidemia, diabetes , atrial fibrillation, who had a right frontotemporal parietal lobe infarct of moderate size on 08/01 with residual spastic left hemiparesis and has also left homonymous hemianopsia, has cognitive impairment of vascular type, who was brought into the hospital because while she was at [facility], she had some dark stools for 1 week and some melena. She is status post upper endoscopy by gastro enterology, which showed gastritis and duodenitis and no bleeding ulcers. She also has history of ri ght frontotemporal parietal lobe infarct, causing left-sided spastic hemiparesis secondary to diffuse atherosclerotic disease as well as from her right carotid artery stenosis with an embolic component from her atrial fibrillation. At this time, I recommend, once cleared by gastroenterology, to put he r back on her Xarelto 20 mg p.o. daily and can hold off the baby aspirin for now, given that she has some recent gastritis and duodenitis. 2. Continue her Lipitor for dyslipidemia 40 mg p.o. daily. 3. We will get home physical and occupational therapy, which will be arranged by Karina, for which t he forms have been filled out. Prescription has been mailed. Family is aware of the situation. Brooke palomo with physical and occupational therapy in the hospital as and continue current present [facility]. Thank you for this consult. No further neurological at this time. She follow with me as an outpatien t. Jose Wu MD cc: [id number] TT: 10/20/2016 16:47:58 Confirmation # [id number] Dictation # [id number] ln
[2016-10-20] MEDS: TRAVATAN 0.004% OU SCH (22:11)
[2016-10-20 23:46] VITALS: RESP 18
[2016-10-21 06:48] LABS: HEMATOCRIT 26.7 % (34.0-47.0); MEAN CORPUSCULAR HEMOGLOBIN 29.5 pg (27.0-31.0); MEAN CORPUSCULAR HGB CONC 33.5 g/dL (33.0-37.0); RED CELL DISTRIBUTION WIDTH 16.4 % (11.5-14.5); WHITE BLOOD COUNT 8.4 K/uL (4.8-10.8)
[2016-10-21 07:00] LABS: BLOOD UREA NITROGEN 9 mg/dl (7-17); CALCIUM 8.8 mg/dL (8.4-10.2); CARBON DIOXIDE 23 mmol/L (22-30); CHLORIDE 107 mmol/L (98-107); GFR AFRICAN-AMERICAN > 60; GLUCOSE,RANDOM 151 mg/dL (65-105); POTASSIUM 4.1 MMOL/L (3.6-5.0); SODIUM 138 mmol/l (132-148)
[2016-10-21] MEDS: Insulin Lispro (humaLOG) 100 Units/ml Inj SC SCH ×2 (07:58→12:03)
--- NOTE | 2016-10-21 08:14 | CP.PCM.PN ---
<Demarcus Mayfield - Last Filed: 10/21/16 08:17> Subjective - Date & Time of Evaluation Date of Evaluation: 10/21/16 Time of Evaluation: 07:15 - Subjective Subjective: No acute events overnight. Patient slept well. Tolerating diet, doing well with PT. Currently lying in bed comfortably, sleeping but arousable. Denies any complaints of h/a, chest pain, dyspnea, n/v or diarrhea at present. Objective - Vital Signs/Intake and Output Vital Signs (last 24 hours): Temp Pulse Resp BP Pulse Ox 98.6 F 83 18 120/50 L 99 10/21/16 07:58 10/21/16 07:58 10/21/16 07:58 10/21/16 07:58 10/21/16 07:58 - Medications Medications: Current Medications Acetaminophen (Tylenol 325mg Tab) 650 mg PO Q4 PRN PRN Reason: Pain, Mild (1-3) Last Admin: 10/19/16 08:32 Dose: 650 mg Al Hydrox/Mg Hydrox/Simethicone (Maalox Plus 30 Ml) 30 ml PO Q4 PRN PRN Reason: Indigestion / Heartburn Atorvastatin Calcium (Lipitor) 10 mg PO [facility] Last Admin: 10/20/16 22:12 Dose: 10 mg Dextrose (Dextrose 50% Inj) 0 ml IV STAT PRN; Protocol PRN Reason: Hyglycemia Protocol Dextrose (Glutose 15) 0 gm PO ONCE PRN; Protocol PRN Reason: Hypoglycemia Protocol Glucagon (Glucagen Diagnostic Kit) 0 mg IM STAT PRN; Protocol PRN Reason: Hypoglycemia Protocol Home Med (Home Med) 1 unit OU [facility] Last Admin: 10/20/16 22:11 Dose: 1 unit Ceftriaxone Sodium 1 gm/ (Sodium Chloride) 100 mls @ 100 mls/hr IV DAILY@2300 [facility] Last Admin: 10/20/16 22:15 Dose: 100 mls/hr Insulin Detemir (Levemir) 15 units SC [facility] Last Admin: 10/19/16 21:28 Dose: 15 units Insulin Human Lispro (Humalog) 0 units SC ACTID [facility] PRN Reason: Protocol Last Admin: 10/21/16 07:58 Dose: 2 units Lisinopril (Zestril) 20 mg PO DAILY [facility] Last Admin: 10/20/16 09:00 Dose: 20 mg Metoprolol Tartrate (Lopressor) 50 mg PO Q12 [facility] Last Admin: 10/20/16 21:01 Dose: Not Given Nystatin (Nystop Topical Powder) 1 applic TOP TID [facility] Last Admin: 10/20/16 22:13 Dose: 1 applic Pantoprazole Sodium (Protonix Ec Tab) 40 mg PO DAILY [facility] Rivaroxaban (Xarelto) 20 mg PO QD5 [facility] PRN Reason: Protocol Stop: 10/21/16 17:01 Last Admin: 10/20/16 17:52 Dose: 20 mg - Labs Labs: 10/21/16 05:20 10/21/16 05:20 PT 12.8 Seconds (9.8-13.1) 10/17/16 21:00 INR 1.1 (0.9-1.2) 10/17/16 21:00 APTT 25.7 Seconds (25.6-37.1) 10/17/16 21:00 - Constitutional Appears: No Acute Distress - Head Exam Head Exam: NORMAL INSPECTION - Eye Exam Eye Exam: Normal appearance - ENT Exam ENT Exam: Mucous Membranes Moist - Respiratory Exam Respiratory Exam: NORMAL BREATHING PATTERN - Cardiovascular Exam Cardiovascular Exam: +S1, +S2. absent: Rubs, Murmur - GI/Abdominal Exam GI & Abdominal Exam: Soft. absent: Tenderness - Extremities Exam Extremities Exam: absent: Pedal Edema, Tenderness - Neurological Exam Neurological Exam: Alert, Awake, CN II-XII Intact, Motor Sensory Deficit (left hemispastic ), Oriented x3 - Psychiatric Exam Psychiatric exam: Flat Affect - Skin Skin Exam: absent: Pallor Assessment and Plan - Assessment and Plan (Free Text) Assessment: 75 year old female with hx of CVA admitted for GI bleed with melena. Patient is currently hemodynamically stable. Bowel movements are now regular, no gross blood on stool. Restart xarelto, continue protonix. Patient to be transferred to [facility] for further rehabilitation. (1) Gastrointestinal hemorrhage with melena Assessment and Plan: -resolved -s/p upper endoscopy, appreciate GI (Dr. Barroso) recommendations: gastritis and duodenitis, no active bleeding or ulcer. -Restarted Xarelto, continue Protonix x1 month (2) Cystitis Assessment and Plan: - Rocephin started empirically - UCx : +enterococcus faecalis, : sensitivites reviewed. - Procalcitonin: 0.08 - Rocephin 1g, IV, Daily(day 4) (3) DVT prophylaxis Assessment and Plan: SCDs for now (4) Atrial fibrillation, chronic Assessment and Plan: Chronic, rate-controlled restart xarelto - c/w rate control medication -appreciate cardiology recommendations (Dr. Marcia Myers) (5) HLD (hyperlipidemia) Assessment and Plan: Chronic, stable. - c/w home medications (6) Diabetes Assessment and Plan: Chronic, stable will hold Metformin at this time in the event contrast imaging is required. - Accu-checks - SSI, Moderate - Levemir 15U, SC, HS - Hypoglycemic Bundle (7) History of CVA with residual deficit Assessment and Plan: Chronic, stable with left hemiplegia -Appreciate neurology (Dr. Wu) recommendations, will follow up as outpatient - HOLD ASA - PT/OT (8) HTN (hypertension) Assessment and Plan: Chronic, stable. - c/w home medications (9) obesity -chronic <Trent Linares - Last Filed: 10/22/16 06:44> Objective - Vital Signs/Intake and Output Vital Signs (last 24 hours): Temp Pulse Resp BP Pulse Ox 99.1 F 79 18 107/70 100 10/21/16 12:09 10/21/16 12:09 10/21/16 12:09 10/21/16 12:09 10/21/16 12:09 Intake and Output: 10/21/16 10/22/16 18:59 06:59 Intake Total 960 Balance 960 - Labs Labs: 10/21/16 05:20 10/21/16 05:20 PT 12.8 Seconds (9.8-13.1) 10/17/16 21:00 INR 1.1 (0.9-1.2) 10/17/16 21:00 APTT 25.7 Seconds (25.6-37.1) 10/17/16 21:00 Attending/Attestation - Attestation I have personally seen and examined this patient.: Yes I have fully participated in the care of the patient.: Yes I have reviewed all pertinent clinical information, including history, physical exam and plan: Yes
[2016-10-21] MEDS ORDERED: Pantoprazole 40 mg EC Tab PO SCH (09:00)
--- NOTE | 2016-10-21 11:08 | PQF ANEMIA ---
Dr. Linares, Please clarify the type of Anemia if known: see the Physician Response section below H/H: 9.5/29.4->8.7/27.4->8.6/27.5->8.5/26.2->8.9/27.6 This form is a permanent part of the medical record Clarification of your documentation is requested to better reflect the severity of illness and intensity of treatment of your patient. Indicators present [] Anemia [] Drop in H&H from []___ to []___ [] Hypotension [x] GI Bleed [] Transfusion(s) [] Acute bleed other sites [] Tachycardia [] Surgical Procedure Blood Loss (expected not a complication) Other:[] Location in the medical record that reflects the above clinical findings: [] Treatment Provided: [] PHYSICIAN'S RESPONSE Based on your medical judgment of the clinical indicators outlined above, are you treating this patient for a known or suspected: [x] Acute blood loss anemia [] Chronic blood loss anemia [] Acute on Chronic blood loss anemia [] Anemia due to malignancy [] Anemia due to chemotherapy or radiation therapy [] Anemia of Chronic Disease, please specify: [] [] Other, please indicate type of anemia []____ [] If Unable to Determine, please check the box, sign and date. Present On Admission (POA) Indicator: [] Present at the time of admission [] Not present at the time of admission [] Clinically Undetermined In responding to this query, please exercise your independent professional judgment. The fact that a question is asked does not imply that any particular answer is desired or expected. Thank you for your clarification on this documentation. If you have any questions please call. * Thank you, Varsha Pitt RN BSN ext. #[phone] MTDD
[2016-10-21 12:10] VITALS: BP 107/70; PULSE 79; TEMP 99.1; O2SAT 100
--- NOTE | 2016-10-21 13:33 | CP.PCM.PN ---
Subjective - Date & Time of Evaluation Date of Evaluation: 10/21/16 Time of Evaluation: 13:10 - Subjective Subjective: Feeling well Findings of endoscopy noted HR 78 BPM BP 136/70 mm HG No signs of CHF Back on Xarelto ASA has been held Pt to return to rehab Objective - Vital Signs/Intake and Output Vital Signs (last 24 hours): Temp Pulse Resp BP Pulse Ox 99.1 F 79 18 107/70 100 10/21/16 12:09 10/21/16 12:09 10/21/16 12:09 10/21/16 12:09 10/21/16 12:09 - Medications Medications: Current Medications Acetaminophen (Tylenol 325mg Tab) 650 mg PO Q4 PRN PRN Reason: Pain, Mild (1-3) Last Admin: 10/19/16 08:32 Dose: 650 mg Al Hydrox/Mg Hydrox/Simethicone (Maalox Plus 30 Ml) 30 ml PO Q4 PRN PRN Reason: Indigestion / Heartburn Atorvastatin Calcium (Lipitor) 10 mg PO [facility] Last Admin: 10/20/16 22:12 Dose: 10 mg Dextrose (Dextrose 50% Inj) 0 ml IV STAT PRN; Protocol PRN Reason: Hyglycemia Protocol Dextrose (Glutose 15) 0 gm PO ONCE PRN; Protocol PRN Reason: Hypoglycemia Protocol Glucagon (Glucagen Diagnostic Kit) 0 mg IM STAT PRN; Protocol PRN Reason: Hypoglycemia Protocol Home Med (Home Med) 1 unit OU [facility] Last Admin: 10/20/16 22:11 Dose: 1 unit Ceftriaxone Sodium 1 gm/ (Sodium Chloride) 100 mls @ 100 mls/hr IV DAILY@2300 [facility] Last Admin: 10/20/16 22:15 Dose: 100 mls/hr Insulin Detemir (Levemir) 15 units SC [facility] Last Admin: 10/19/16 21:28 Dose: 15 units Insulin Human Lispro (Humalog) 0 units SC ACTID [facility] PRN Reason: Protocol Last Admin: 10/21/16 12:03 Dose: 2 units Lisinopril (Zestril) 20 mg PO DAILY [facility] Last Admin: 10/21/16 09:29 Dose: 20 mg Metoprolol Tartrate (Lopressor) 50 mg PO Q12 [facility] Last Admin: 10/21/16 09:28 Dose: 50 mg Nystatin (Nystop Topical Powder) 1 applic TOP TID [facility] Last Admin: 10/21/16 12:04 Dose: 1 applic Pantoprazole Sodium (Protonix Ec Tab) 40 mg PO DAILY [facility] Last Admin: 10/21/16 09:29 Dose: 40 mg Rivaroxaban (Xarelto) 20 mg PO QD5 [facility] PRN Reason: Protocol Stop: 10/21/16 17:01 Last Admin: 10/20/16 17:52 Dose: 20 mg - Labs Labs: 10/21/16 05:20 10/21/16 05:20 PT 12.8 Seconds (9.8-13.1) 10/17/16 21:00 INR 1.1 (0.9-1.2) 10/17/16 21:00 APTT 25.7 Seconds (25.6-37.1) 10/17/16 21:00
== END 2016-10-21 16:20 | DRG 378 ==
LOC: H.ER 18:38 → H.ERHOLD 22:50 → H.TEL 10-18 01:04
PROVIDERS: ADMIT Family Medicine; ATTEND Family Medicine
PROC: 0DB68ZX Excision of Stomach, Via Natural or Artificial Opening Endoscopic, Diagnostic (ICD-10-PCS; principal; 2016-10-20 12:30)
DX: K29.71 Gastritis, unspecified, with bleeding (principal); G81.14 Spastic hemiplegia affecting left nondominant side; L89.322 Pressure ulcer of left buttock, stage 2; I48.2 Chronic atrial fibrillation; N30.90 Cystitis, unspecified without hematuria; D62 Acute posthemorrhagic anemia; I69.359 Hemiplegia and hemiparesis following cerebral infarction affecting unspecified side; E11.9 Type 2 diabetes mellitus without complications; E66.9 Obesity, unspecified; Z68.37 Body mass index [BMI] 37.0-37.9, adult; Z71.3 Dietary counseling and surveillance; E78.00 Pure hypercholesterolemia, unspecified; E78.5 Hyperlipidemia, unspecified; H40.9 Unspecified glaucoma; I10 Essential (primary) hypertension; Z79.01 Long term (current) use of anticoagulants; Z87.440 Personal history of urinary (tract) infections; Z96.642 Presence of left artificial hip joint; Z96.60 Presence of unspecified orthopedic joint implant

== ENCOUNTER 2017-02-22 18:19 | Emergency (ER) | payer MEDICARE, OTHER ==
[2017-02-22 18:19] VITALS: BMI 37.0
[2017-02-22 18:25] VITALS: TEMP 99
--- NOTE | 2017-02-22 18:53 | ED PDOC ---
HPI: Altered Mental Status Time Seen by Provider: 02/22/17 18:27 Chief Complaint (Nursing): Altered Mental Status Chief Complaint (Provider): Insomnia, confusion History Per: Family History/Exam Limitations: None Onset/Duration Of Symptoms: Days (x 2) Current Symptoms Are (Timing): Still Present Description Of Symptoms: Confused Usual Baseline: Alert Oriented, Wheelchair Bound Use Of Anticoag/Antiplatlets: Yes (Xarelto) Additional History Per: Patient Associated Symptoms: Headache Additional Complaint(s): Kailyn Farfan is a 76 y/o female with a history of hypertension, diabetes, atrial fibrillation, and CVA, who was brought to the ED by family for evaluation of insomnia for 2 days and occasional confusion. Per family, patient appears coherent and is speaking, but occasionally becomes disoriented. Patient had a right-sided acute ischemic stroke on 07/24/16 with resulting left-sided weakness, and does not ambulate independently. Patient complains of a headache for 1 day, which is not the worst headache of her life. Per family, no nausea, vomiting, diarrhea, or fever. There is no new weakness, numbness, or neurological deficits. Patient is on Xarelto as a blood thinner. Family is concerned that patient had similar symptoms in the past, and was diagnosed with a UTI. PMD: Trent Linares Health Information Administrator: Dr. Nirmal Myers Past Medical History Reviewed: Historical Data, Nursing Documentation, Vital Signs Vital Signs: Last Vital Signs Temp 99 F 02/22/17 18:21 Pulse 56 L 02/22/17 18:21 Resp 18 02/22/17 18:21 BP 119/85 02/22/17 18:21 Pulse Ox 99 02/22/17 18:21 - Medical History PMH: Arthritis, Atrial Fibrillation, Cardia Arrhythmia, CVA, Diabetes (type 2), Gastritis, HTN, Hypercholesterolemia Denies: HIV, Chronic Kidney Disease - Surgical History Other surgeries: Left THR joint replacement - Family History Family History: States: Unknown Family Hx - Home Medications Home Medications: Ambulatory Orders Medication Instructions Recorded Aluminum Hydroxide/Magnesium H 30 ml PO Q4 PRN 09/01/16 [Maalox 30 ml] Docusate Sodium/Sennosides A 50 mg PO HS 09/01/16 [Senokot S 50 MG-8.6 MG] Magnesium Hydroxide [Milk Of 30 ml PO DAILY PRN 09/01/16 Magnesia] Metformin ER [Glucophage XR] 750 mg PO DAILY 09/01/16 Ondansetron [Zofran Tab] 4 mg PO Q6 PRN 09/01/16 Clotrimazole 1% Cream [Lotrimin 1% 1 % TOP DAILY 10/18/16 CREAM] Gabapentin [Neurontin] 300 mg PO HS 10/18/16 Silver Sulfadiazine 1% 20 gm 1 % TOP TID 10/18/16 [Silvadene 1% 20 gm] Amoxicillin/Clavulanate [Augmentin 1 tab PO BID #20 tab 10/21/16 875 MG-125 MG] Atorvastatin [Lipitor] 40 mg PO HS #30 tab 10/21/16 Lisinopril [Zestril] 20 mg PO DAILY #30 10/21/16 Metoprolol Tartrate [Lopressor] 50 mg PO Q12 #30 10/21/16 Pantoprazole [Protonix EC Tab] 40 mg PO DAILY #30 ect 10/21/16 Rivaroxaban [Xarelto] 20 mg PO DAILY #30 10/21/16 Rivaroxaban [Xarelto] 20 mg PO DAILY #30 tab 10/21/16 Zolpidem [Ambien] 5 mg PO HS #7 tab 02/22/17 - Allergies Allergies/Adverse Reactions: Allergies Allergy/AdvReac Type Severity Reaction Status Date / Time No Known Allergies Allergy Verified 10/28/14 13:18 Review of Systems ROS Statement: Except As Marked, All Systems Reviewed And Found Negative Constitutional: Negative for: Fever Gastrointestinal: Negative for: Nausea, Vomiting, Diarrhea Neurological: Positive for: Confusion, Headache, Other (Insomnia). Negative for : Weakness (new), Numbness (new) Physical Exam - Reviewed Nursing Documentation Reviewed: Yes Vital Signs Reviewed: Yes - Physical Exam Appears: Positive for: Non-toxic, No Acute Distress Head Exam: Positive for: ATRAUMATIC, NORMAL INSPECTION, NORMOCEPHALIC Skin: Positive for: Normal Color, Warm, Dry Eye Exam: Positive for: EOMI, Normal appearance, PERRL Neck: Positive for: Normal, Supple Cardiovascular/Chest: Positive for: Bradycardia, Irregularly Irregular Respiratory: Positive for: Normal Breath Sounds. Negative for: Accessory Muscle Use, Respiratory Distress Pulses-Radial (L): 2+ Pulses-Radial (R): 2+ Gastrointestinal/Abdominal: Positive for: Normal Exam, Soft. Negative for: Tenderness Extremity: Positive for: Normal ROM (but limited due to old weakness) Neurologic/Psych: Positive for: Alert, Oriented, Motor/Sensory Deficits (left arm and left leg w/ decreased motor strength and sensation, from old CVA). Negative for: Facial Droop - Laboratory Results Result Diagrams: 02/22/17 18:58 02/22/17 18:58 - ECG ECG Rhythm: Positive for: Normal QRS, Atrial Fibrillation (with slow ventricular response). Negative for: ST/T Changes Rate: 59 O2 Sat by Pulse Oximetry: 99 (RA) Pulse Ox Interpretation: Normal Medical Decision Making Medical Decision Making: Initial Impression: Insomnia, confusion Differentials include: dementia, UTI, electrolyte abnormalities, dehydration Time: 18:46 Initial Plan: --EKG --BMP --CBC w/ differentials --PTT --Prothrombin time --Urine dipstick --CT Head w/o contrast --Pending reevaluation Time: 20:12 CT HEAD W/O CONTRAST FINDINGS: Brain: Interval evolution of large right MCA infarct with large area of encephalomalacia involving the right frontal, parietal and temporal lobe. Evidence of chronic small vessel ischemic changes. Vascular calcification. No hemorrhage. No edema. Ventricles: No hydrocephalus. Bones: Skull is intact. Sinuses: No acute sinusitis. Mastoid air cells: No mastoid effusion. IMPRESSION: No CT evidence of acute intracranial abnormality. Findings consistent with chronic right MCA infarct and chronic small vessel ischemic changes. Acute infarcts/early ischemic changes may not be detectable by this modality; MRI is more sensitive in detecting acute ischemia. Time: 20:43 --Urine dip is negative Scribe Attestation: Documented by Brittany Dowling, acting as a scribe for Abhilash Orellana MD Provider Scribe Attestation: All medical record entries made by the Scribe were at my direction and personally dictated by me. I have reviewed the chart and agree that the record accurately reflects my personal performance of the history, physical exam, medical decision making, and the department course for this patient. I have also personally directed, reviewed, and agree with the discharge instructions and disposition. Disposition - Clinical Impression Clinical Impression: History of CVA with residual deficit, Insomnia, Cognitive deficit due to old cerebrovascular accident (CVA) - Patient ED Disposition Is Patient to be Admitted: No Doctor Will See Patient In The: Office Counseled Patient/Family Regarding: Studies Performed, Diagnosis, Need For Followup - Disposition Referrals: Your , neurologist [Other] Disposition: Routine/Home Disposition Time: 20:55 Condition: GOOD Additional Instructions: Follow up with your neurologist within 1 week. Prescriptions: Zolpidem [Ambien] 5 mg PO HS #7 tab Instructions: Insomnia (ED)
[2017-02-22 19:02] LABS: BASO # 0.1 K/uL (0.0-0.2); BASO % 1.4 % (0.0-2.0); EOS # 0.2 K/uL (0.0-0.7); EOS % 2.6 % (0.0-4.0); HEMATOCRIT 38.9 % (34.0-47.0); LYMPH # 2.2 K/uL (1.0-4.3); LYMPH % 27.1 % (20.0-40.0); MEAN CELL VOLUME 80.3 fl (81.0-99.0); MEAN CORPUSCULAR HEMOGLOBIN 25.4 pg (27.0-31.0); MEAN CORPUSCULAR HGB CONC 31.7 g/dL (33.0-37.0); MEAN PLATELET VOLUME 9.5 fl (7.2-11.7); MONO # 0.6 K/uL (0.0-0.8); NEUT # 5.1 K/uL (1.8-7.0); NEUT % 61.9 % (50.0-75.0); RED CELL DISTRIBUTION WIDTH 17.4 % (11.5-14.5); WHITE BLOOD COUNT 8.2 K/uL (4.8-10.8)
[2017-02-22 19:12] LABS: BLOOD UREA NITROGEN 16 mg/dl (7-17); CALCIUM 9.8 mg/dL (8.4-10.2); CARBON DIOXIDE 25 mmol/L (22-30); CHLORIDE 107 mmol/L (98-107); GFR AFRICAN-AMERICAN > 60; GLUCOSE,RANDOM 123 mg/dL (65-105); POTASSIUM 4.3 MMOL/L (3.6-5.0); SODIUM 143 mmol/l (132-148)
[2017-02-22 19:19] LABS: PARTIAL THROMBOPLASTIN TIME 31.3 Seconds (25.6-37.1)
--- NOTE | 2017-02-22 20:12 | CT ---
EXAM: CT Head Without Intravenous Contrast CLINICAL HISTORY: 76 years old, female; Signs and symptoms; Altered mental status/memory loss; Confusion or disorientation; Patient HX: Old CVA; Additional info: AMS TECHNIQUE: Axial computed tomography images of the head/brain without intravenous contrast. All CT scans at this facility use one or more dose reduction techniques, viz.: automated exposure control; ma/kV adjustment per patient size (including targeted exams where dose is matched to indication; i.e. head); or iterative reconstruction technique. Coronal and sagittal reformatted images were created and reviewed. COMPARISON: CT - HEAD W/O (CODE STROKE) 07/24/2016 10:46:30 AM FINDINGS: Brain: Interval evolution of large right MCA infarct with large area of encephalomalacia involving the right frontal, parietal and temporal lobe. Evidence of chronic small vessel ischemic changes. Vascular calcification. No hemorrhage. No edema. Ventricles: No hydrocephalus. Bones: Skull is intact. Sinuses: No acute sinusitis. Mastoid air cells: No mastoid effusion. IMPRESSION: No CT evidence of acute intracranial abnormality. Findings consistent with chronic right MCA infarct and chronic small vessel ischemic changes. Acute infarcts/early ischemic changes may not be detectable by this modality; MRI is more sensitive in detecting acute ischemia.
[2017-02-22 22:34] VITALS: BP 132/78; RESP 16; O2SAT 95
[2017-02-22 22:37] VITALS: PULSE 58
--- NOTE | 2017-02-24 12:51 | CARD ---
APPROVED REPORT EKG Measurement Heart [id number] <Conclusion> Atrial fibrillation with slow ventricular response Nonspecific ST abnormality Abnormal ECG
== END 2017-02-22 22:05 | disposition home or self-care (01) ==
LOC: H.ER 18:19
DX: G47.00 Insomnia, unspecified (principal); I69.319 Unspecified symptoms and signs involving cognitive functions following cerebral infarction

== ENCOUNTER 2017-06-01 00:49 | Inpatient (IN) | payer MEDICARE, OTHER ==
[2017-06-01 01:02] VITALS: BMI 38.7
[2017-06-01 01:49] LABS: BASO # 0.1 K/uL (0.0-0.2); BASO % 0.9 % (0.0-2.0); EOS # 0.3 K/uL (0.0-0.7); EOS % 3.5 % (0.0-4.0); HEMOGLOBIN 11.8 g/dL (12.0-16.0); MEAN CELL VOLUME 81.4 fl (81.0-99.0); MEAN CORPUSCULAR HEMOGLOBIN 26.3 pg (27.0-31.0); MEAN CORPUSCULAR HGB CONC 32.2 g/dL (33.0-37.0); MEAN PLATELET VOLUME 9.8 fl (7.2-11.7); MONO # 0.6 K/uL (0.0-0.8); MONO % 7.7 % (0.0-10.0); NEUT # 5.1 K/uL (1.8-7.0); NEUT % 62.9 % (50.0-75.0); RBC 4.51 Mil/uL (3.80-5.20); RED CELL DISTRIBUTION WIDTH 16.6 % (11.5-14.5); WHITE BLOOD COUNT 8.1 K/uL (4.8-10.8)
[2017-06-01 01:56] LABS: ALBUMIN 3.4 g/dL (3.5-5.0); ALT/SGPT 25 U/L (9-52); AST/SGOT 20 U/L (14-36); BLOOD UREA NITROGEN 14 mg/dl (7-17); CALCIUM 9.3 mg/dL (8.4-10.2); GFR AFRICAN-AMERICAN > 60; GFR NON-AFRICAN AMERICAN > 60
[2017-06-01 01:57] LABS: ALB/GLOB RATIO 0.9 (1.0-2.1); INR 2.2 (0.9-1.2); PARTIAL THROMBOPLASTIN TIME 43.5 Seconds (25.6-37.1); PROTHROMBIN TIME 24.7 Seconds (9.8-13.1)
--- NOTE | 2017-06-01 01:57 | ED PDOC ---
HPI: Chest Pain Time Seen by Provider: 06/01/17 00:53 Chief Complaint (Nursing): Chest Pain Chief Complaint (Provider): Chest Pain History Per: Patient History/Exam Limitations: no limitations Onset/Duration Of Symptoms: Hrs (x24) Current Symptoms Are (Timing): Still Present Additional Complaint(s): 76 year old female with previous medical history of hypertension, AFib, diabtes and hypercholesterolemia, who presents to the emergency department with a complaint of chest pain associated with sweats ongoing for 24 hours. Denied any nausea or vomiting. Patient stated all symptoms resolved upon arrival to ED. Of note, patient also has medical history of CVA with left-sided deficits. PMD: none provided Past Medical History Reviewed: Historical Data, Nursing Documentation, Vital Signs Vital Signs: Last Vital Signs Temp Pulse 59 L 06/01/17 03:02 Resp 26 H 06/01/17 03:02 BP 148/90 06/01/17 03:02 Pulse Ox 99 06/01/17 03:02 - Medical History PMH: Arthritis, Atrial Fibrillation, Cardia Arrhythmia, CVA, Diabetes (type 2), Gastritis, HTN, Hypercholesterolemia Denies: HIV, Chronic Kidney Disease - Surgical History Surgical History: Denies: No Surg Hx - Family History Family History: States: Unknown Family Hx - Social History Current smoker - smoking cessation education provided: No Alcohol: None Drugs: Denies - Home Medications Home Medications: Ambulatory Orders Medication Instructions Recorded Docusate Sodium/Sennosides A 50 mg PO PRN PRN 09/01/16 [Senokot S 50 MG-8.6 MG] Metformin ER [Glucophage XR] 750 mg PO DAILY 09/01/16 Gabapentin [Neurontin] 300 mg PO HS 10/18/16 Lisinopril [Zestril] 20 mg PO DAILY #30 10/21/16 Metoprolol Tartrate [Lopressor] 50 mg PO Q12 #30 10/21/16 Pantoprazole [Protonix EC Tab] 40 mg PO DAILY #30 ect 10/21/16 Rivaroxaban [Xarelto] 20 mg PO DAILY #30 tab 10/21/16 Atorvastatin [Lipitor] 40 mg PO HS 06/01/17 - Allergies Allergies/Adverse Reactions: Allergies Allergy/AdvReac Type Severity Reaction Status Date / Time No Known Allergies Allergy Verified 06/01/17 01:02 Review of Systems ROS Statement: Except As Marked, All Systems Reviewed And Found Negative Constitutional: Positive for: Sweats (resolved) Cardiovascular: Positive for: Chest Pain (resolved) Gastrointestinal: Negative for: Nausea, Vomiting Neurological: Positive for: Weakness (left-sided S/P CVA) Physical Exam - Reviewed Nursing Documentation Reviewed: Yes Vital Signs Reviewed: Yes - Physical Exam Appears: Positive for: Well, Non-toxic, No Acute Distress Head Exam: Positive for: ATRAUMATIC, NORMAL INSPECTION, NORMOCEPHALIC Skin: Positive for: Normal Color Eye Exam: Positive for: Normal appearance ENT: Positive for: Normal ENT Inspection Neck: Positive for: Normal, Painless ROM Cardiovascular/Chest: Positive for: Regular Rate, Rhythm, Chest Non Tender Respiratory: Positive for: Normal Breath Sounds. Negative for: Decreased Breath Sounds, Wheezing, Respiratory Distress Gastrointestinal/Abdominal: Positive for: Normal Exam, Soft. Negative for: Tenderness Extremity: Positive for: Normal ROM (upper/lower). Negative for: Pedal Edema ( bilateral), Calf Tenderness (bilateral) Neurologic/Psych: Positive for: Alert, Oriented, Motor/Sensory Deficits (left- sided), Other (strength: 1/5) - Laboratory Results Result Diagrams: 06/01/17 01:45 06/01/17 01:45 - ECG O2 Sat by Pulse Oximetry: 98 (RA) Pulse Ox Interpretation: Normal Medical Decision Making Medical Decision Making: Initial Impression: Chest pain Initial Plan: * EKG * BNP * CMP * Troponin I * CBC * PTT * PT * CXR * Urinalysis ___ Time: 0132 --Labs: no clinically significant abnormalities with exception elevation of coagulation panel (PT, INR & APTT) Chest Xray demonstrates --Hospitalized for observation. --Discussed case with admitting resident, Dr. Flores, covering for Dr. Georges. DX Chest Pain Fair Scribe Attestation: Documented by Kristie Sherwodo, acting as a scribe for Rick Almaguer MD. Provider Scribe Attestation: All medical record entries made by the Scribe were at my direction and personally dictated by me. I have reviewed the chart and agree that the record accurately reflects my personal performance of the history, physical exam, medical decision making, and the department course for this patient. I have also personally directed, reviewed, and agree with the discharge instructions and disposition. Disposition - Clinical Impression Clinical Impression: Chest pain - Patient ED Disposition Is Patient to be Admitted: Yes - Disposition Disposition Time: 01:30 Condition: FAIR - Pt Status Changed To: Hospital Disposition Of: Observation
[2017-06-01 02:08] LABS: B-TYPE NATRIURETIC PEPTIDE 1980 pg/ml (0-900)
[2017-06-01] MEDS ORDERED: Docusate-Senna 50 mg-8.6 mg Tab PO PRN ×2 (02:52→06:15)
--- NOTE | 2017-06-01 03:06 | CP.PCM.HP ---
Addendum entered and electronically signed by Hyacinth Maier MD 06/01/17 13:28: Patient seen and examined bedside. she denies chest pain today. reports low dysphagia yesterday noticed when she took her medications. She states that was able to swallow liquids today in the morning w/o difficulty. Denies n,v, heartburn, cough, fever, constipation, hx/o dysphagia GI consult called Senior Speech Pathologist consult appreciated Original Note: <Hyacinth Maier - Last Filed: 06/01/17 07:36> Meds Allergies/Adverse Reactions: Allergies Allergy/AdvReac Type Severity Reaction Status Date / Time No Known Allergies Allergy Verified 06/01/17 01:02 Results - Vital Signs Recent Vital Signs: Last Vital Signs Temp 97.4 F L 06/01/17 05:42 Pulse 51 L 06/01/17 06:54 Resp 18 06/01/17 05:42 BP 178/74 H 06/01/17 06:54 Pulse Ox 98 06/01/17 05:42 - Labs Result Diagrams: 06/01/17 01:45 06/01/17 01:45 Labs: Laboratory Results - last 24 hr 06/01/17 06/01/17 06/01/17 01:45 01:45 01:45 WBC 8.1 RBC 4.51 Hgb 11.8 L Hct 36.7 MCV 81.4 MCH 26.3 L MCHC 32.2 L RDW 16.6 H Plt Count 174 MPV 9.8 Neut % (Auto) 62.9 Lymph % (Auto) 25.0 [place] % (Auto) 7.7 Eos % (Auto) 3.5 Baso % (Auto) 0.9 Neut # 5.1 Lymph # 2.0 Schuyler # 0.6 Eos # 0.3 Baso # 0.1 PT 24.7 H INR 2.2 H APTT 43.5 H Sodium 140 Potassium 3.9 Chloride 103 Carbon Dioxide 26 Anion Gap 15 BUN 14 Creatinine 0.8 Est GFR ( Amer) > 60 Est GFR (Non-Af Amer) > 60 POC Glucose (mg/dL) Random Glucose 114 H Calcium 9.3 Total Bilirubin 0.5 AST 20 ALT 25 Alkaline Phosphatase 82 Troponin I < 0.0120 NT-Pro-B Natriuret Pep 1980 H Total Protein 7.2 Albumin 3.4 L Globulin 3.8 Albumin/Globulin Ratio 0.9 L 06/01/17 05:11 WBC RBC Hgb Hct MCV MCH MCHC RDW Plt Count MPV Neut % (Auto) Lymph % (Auto) [place] % (Auto) Eos % (Auto) Baso % (Auto) Neut # Lymph # [place] # Eos # Baso # PT INR APTT Sodium Potassium Chloride Carbon Dioxide Anion Gap BUN Creatinine Est GFR ( Amer) Est GFR (Non-Af Amer) POC Glucose (mg/dL) 94 Random Glucose Calcium Total Bilirubin AST ALT Alkaline Phosphatase Troponin I NT-Pro-B Natriuret Pep Total Protein Albumin Globulin Albumin/Globulin Ratio <Irma Andrade - Last Filed: 06/01/17 07:41> History of Present Illness - History of Present Illness History of Present Illness: 76 y/o chair/bedbound F with PMHx of HTN, HLD, A fib, DM type 2 , 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 Patient states that she started having chest pain after she eats solid foods and drinks fluids. She feels that the food and fluids are getting stuck in the low chest close to her stomach, associated with nausea without vomiting. C/o episodes of acid reflux sensation coming from her stomach to her throat. However on thursday night, she had an episode of chest pain associated with profuse sweating, and she was not eating at that time. She fell asleep and the woke up thursday morning without any complains. Patient states that last night she was eating well in upright position,but when she tried to lie down right after dinner,she started having low chest pain. Denies any chest pain at this evaluation. Denies fevers, chills,SOB, palpitations, abd pain, or urinary symptoms. Reports that recently has been urinating more than usual. PMD: Dr. Linares Cardiology: Marcia Myers Allergies: NKDA Social: denies SHx: left hip replacement ED course lbs : CBC, coag panel, CMP EKG, CXR Present on Admission - Present on Admission Any Indicators Present on Admission: No History of DVT/PE: No History of Uncontrolled Diabetes: No Urinary Catheter: No Decubitus Ulcer Present: No Review of Systems - Review of Systems All systems: reviewed and no additional remarkable complaints except (as per HPI ) Past Patient History - Infectious Disease Hx of Infectious Diseases: None - Past Medical History & Family History Past Medical History?: Yes - Past Social History Alcohol: None Drugs: Denies - CARDIAC Hx Atrial Fibrillation: Yes Hx Cardia Arrhythmia: Yes Hx Hypercholesterolemia: Yes Hx Hypertension: Yes - PULMONARY Hx Respiratory Disorders: Yes - NEUROLOGICAL HX Cerebrovascular Accident: Yes - HEENT Hx HEENT Problems: Yes Hx Glaucoma: Yes Other/Comment: (+) Left Homonymous Hemianopsia - RENAL Hx Chronic Kidney Disease: No - ENDOCRINE/METABOLIC Hx Diabetes Mellitus Type 2: Yes - HEMATOLOGICAL/ONCOLOGICAL Hx Human Immunodeficiency Virus (HIV): No - INTEGUMENTARY Hx Dermatological Problems: Yes Other/Comment: multiple excoriations to bilateral groin, sacrum, buttocks - MUSCULOSKELETAL/RHEUMATOLOGICAL Hx Arthritis: Yes - GASTROINTESTINAL Hx Gastritis: Yes - GENITOURINARY/GYNECOLOGICAL Hx Genitourinary Disorders: Yes Hx Incontinence: Yes Hx Urinary Tract Infection: Yes - PSYCHIATRIC Hx Psychophysiologic Disorder: No Hx Substance Use: No - SURGICAL HISTORY Hx Surgeries: Yes Hx Joint Replacement: Yes (Left THR 2013) Hx Musculoskeletal Surgery: Yes - ANESTHESIA Hx Anesthesia: Yes Hx Anesthesia Reactions: No Hx Malignant Hyperthermia: No Physical Exam - Constitutional Appears: Non-toxic, No Acute Distress - ENT Exam ENT Exam: Mucous Membranes Moist - Respiratory Exam Respiratory Exam: Decreased Breath Sounds (lung bases bilateral), Clear to Auscultation Bilateral, NORMAL BREATHING PATTERN - Cardiovascular Exam Cardiovascular Exam: Bradycardia, Irregular Rhythm, +S1, +S2 - GI/Abdominal Exam GI & Abdominal Exam: Normal Bowel Sounds, Soft. absent: Distended, Guarding, Rebound, Rigid, Tenderness - Extremities Exam Extremities exam: Positive for: normal inspection. Negative for: calf tenderness, pedal edema - Neurological Exam Neurological exam: Alert, Oriented x3 - Skin Skin Exam: Dry, Intact, Normal Color Results - Vital Signs Recent Vital Signs: Last Vital Signs Temp Pulse 59 L 06/01/17 03:02 Resp 26 H 06/01/17 03:02 BP 148/90 06/01/17 03:02 Pulse Ox 99 06/01/17 03:02 - Labs Result Diagrams: 06/01/17 01:45 06/01/17 01:45 Labs: Laboratory Results - last 24 hr 01/15/18 01/15/18 01/15/18 01:45 01:45 01:45 WBC 8.1 RBC 4.51 Hgb 11.8 L Hct 36.7 MCV 81.4 MCH 26.3 L MCHC 32.2 L RDW 16.6 H Plt Count 174 MPV 9.8 Neut % (Auto) 62.9 Lymph % (Auto) 25.0 [place] % (Auto) 7.7 Eos % (Auto) 3.5 Baso % (Auto) 0.9 Neut # 5.1 Lymph # 2.0 [place] # 0.6 Eos # 0.3 Baso # 0.1 PT 24.7 H INR 2.2 H APTT 43.5 H Sodium 140 Potassium 3.9 Chloride 103 Carbon Dioxide 26 Anion Gap 15 BUN 14 Creatinine 0.8 Est GFR ( Amer) > 60 Est GFR (Non-Af Amer) > 60 Random Glucose 114 H Calcium 9.3 Total Bilirubin 0.5 AST 20 ALT 25 Alkaline Phosphatase 82 Troponin I < 0.0120 NT-Pro-B Natriuret Pep 1980 H Total Protein 7.2 Albumin 3.4 L Globulin 3.8 Albumin/Globulin Ratio 0.9 L Assessment & Plan - Assessment and Plan (Free Text) Assessment: 76 y/o chair/bedbound F with PMHx of HTN, HLD, A fib, DM type 2 , CVA admitted for chest pain to r/o ACS. Plan: Chest pain R/O ACS admit in Telemetry Continuos desk monitor EKG in ED showed A fib with SVR CXR showed cardiomegaly, but no evidence of gross infiltrate or pleural effusion. Pending official report troponin I x 1 was negative f/u troponin I x 2 Q8 f/u EKG in AM swallow eval Cardiology consult as needed. Dr. Varela Urine frequency f/u UA f/u HbgA1C GERD c/o acid reflux in current PPI possible c/o dysphagia ( could be 2/2 to log term GERD exposure, but other causes can not being r/o, could need esophagus images) c/w home PPI Add pepcid 20 mg PO swallow eval -reassess HTN c/w lisinopril 20 mg PO daily c/w statin A fib Rate controlled c/w metoprolol tart 50 mg PO Q12 c/w xarelto 20 mg PO daily DM type 2 -c/w metformin GFR >60 f/u HgbA1C DVT prophylaxis on xarelto - Date & Time Date: 06/01/17 Time: 02:50 <Trent Linares - Last Filed: 06/02/17 06:57> Results - Vital Signs Recent Vital Signs: Last Vital Signs Temp 97.8 F 06/02/17 05:23 Pulse 70 06/02/17 05:23 Resp 18 06/02/17 05:23 BP 165/89 H 06/02/17 05:23 Pulse Ox 97 06/02/17 05:23 - Labs Result Diagrams: 06/02/17 04:20 06/01/17 01:45 Labs: Laboratory Results - last 24 hr 06/01/17 06/01/17 06/01/17 08:35 10:43 11:11 WBC RBC Hgb Hct MCV MCH MCHC RDW Plt Count PT INR APTT POC Glucose (mg/dL) 149 H Troponin I 0.0130 Urine Color Yellow Urine Clarity Slighty-cloudy Urine pH 5.0 Ur Specific [place] 1.012 Urine Protein Negative Urine Glucose (UA) Neg Urine Ketones Negative Urine Blood Small Urine Nitrate Negative Urine Bilirubin Negative Urine Urobilinogen 2.0 H Ur Leukocyte Esterase Neg Urine RBC (Auto) 3 Urine Microscopic WBC 1 Ur Squamous Epith Cells 3 Urine Bacteria Occ H 06/01/17 06/01/17 06/02/17 16:05 16:31 04:20 WBC 7.3 RBC 4.49 Hgb 11.7 L Hct 36.4 MCV 81.2 MCH 26.1 L MCHC 32.2 L RDW 16.5 H Plt Count 166 PT INR APTT POC Glucose (mg/dL) 120 H Troponin I < 0.0120 Urine Color Urine Clarity Urine pH Ur Specific [place] Urine Protein Urine Glucose (UA) Urine Ketones Urine Blood Urine Nitrate Urine Bilirubin Urine Urobilinogen Ur Leukocyte Esterase Urine RBC (Auto) Urine Microscopic WBC Ur Squamous Epith Cells Urine Bacteria 06/02/17 06/02/17 04:20 05:05 WBC RBC Hgb Hct MCV MCH MCHC RDW Plt Count PT 15.5 H D INR 1.4 H D APTT 34.3 D POC Glucose (mg/dL) 87 Troponin I Urine Color Urine Clarity Urine pH Ur Specific [place] Urine Protein Urine Glucose (UA) Urine Ketones Urine Blood Urine Nitrate Urine Bilirubin Urine Urobilinogen Ur Leukocyte Esterase Urine RBC (Auto) Urine Microscopic WBC Ur Squamous Epith Cells Urine Bacteria Attending/Attestation - Attestation I have personally seen and examined this patient.: Yes I have fully participated in the care of the patient.: Yes I have reviewed all pertinent clinical information: Yes
--- NOTE | 2017-06-01 08:36 | CP.PCM.CON ---
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 Patient states that she started having chest pain after she eats solid foods and drinks fluids. She feels that the food and fluids are getting stuck in the low chest close to her stomach, associated with nausea without vomiting. C/o episodes of acid reflux sensation coming from her stomach to her throat. Patient states that last night she was eating well in upright position, but when she tried to lie down right after dinner,she started having low chest pain. EKG: Atrial Fibrillation @55 BPM Troponin: Neg BNP: 1979 PMH:: Hypertension Atrial Fibrillation DM II CVA Left THR Pt is on Metoprolol which accounts for her HR dropping at times to 45 BPM Pt remains asymptomatic with thr low HR Past Patient History - Infectious Disease Hx of Infectious Diseases: None - Past Medical History & Family History Past Medical History?: Yes - Past Social History Alcohol: None Drugs: Denies - CARDIAC Hx Atrial Fibrillation: Yes Hx Cardia Arrhythmia: Yes Hx Hypercholesterolemia: Yes Hx Hypertension: Yes - PULMONARY Hx Respiratory Disorders: Yes - NEUROLOGICAL HX Cerebrovascular Accident: Yes - HEENT Hx HEENT Problems: Yes Hx Glaucoma: Yes Other/Comment: (+) Left Homonymous Hemianopsia - RENAL Hx Chronic Kidney Disease: No - ENDOCRINE/METABOLIC Hx Diabetes Mellitus Type 2: Yes - HEMATOLOGICAL/ONCOLOGICAL Hx Human Immunodeficiency Virus (HIV): No - INTEGUMENTARY Hx Dermatological Problems: Yes Other/Comment: multiple excoriations to bilateral groin, sacrum, buttocks - MUSCULOSKELETAL/RHEUMATOLOGICAL Hx Arthritis: Yes - GASTROINTESTINAL Hx Gastritis: Yes - GENITOURINARY/GYNECOLOGICAL Hx Genitourinary Disorders: Yes Hx Incontinence: Yes Hx Urinary Tract Infection: Yes - PSYCHIATRIC Hx Psychophysiologic Disorder: No Hx Substance Use: No - SURGICAL HISTORY Hx Surgeries: Yes Hx Joint Replacement: Yes (Left THR 2012) Hx Musculoskeletal Surgery: Yes - ANESTHESIA Hx Anesthesia: Yes Hx Anesthesia Reactions: No Hx Malignant Hyperthermia: No Meds Allergies/Adverse Reactions: Allergies Allergy/AdvReac Type Severity Reaction Status Date / Time No Known Allergies Allergy Verified 06/01/17 01:02 - Medications Medications: Current Medications Atorvastatin Calcium (Lipitor) 40 mg PO HS [facility] Famotidine (Pepcid) 20 mg PO DAILY [facility] Gabapentin (Neurontin) 300 mg PO HS [facility] Lisinopril (Zestril) 20 mg PO DAILY [facility] Last Admin: 06/01/17 06:54 Dose: 20 mg Metformin HCl (Glucophage) 500 mg PO BIDWM [facility] Metoprolol Tartrate (Lopressor) 50 mg PO Q12 [facility] Pantoprazole Sodium (Protonix Ec Tab) 40 mg PO DAILY [facility] Rivaroxaban (Xarelto) 20 mg PO DAILY [facility] PRN Reason: Protocol Senna/Docusate Sodium (Senokot S 50 Mg-8.6 Mg) 1 tab PO DAILY PRN PRN Reason: Constipation Results - Vital Signs Recent Vital Signs: Last Vital Signs Temp 97.6 F 06/01/17 08:12 Pulse 77 06/01/17 08:12 Resp 20 06/01/17 08:12 BP 172/71 H 06/01/17 08:12 Pulse Ox 100 06/01/17 08:12 - Labs Result Diagrams: 06/01/17 01:45 06/01/17 01:45 Labs: Laboratory Results - last 24 hr 06/01/17 06/01/17 06/01/17 01:45 01:45 01:45 WBC 8.1 RBC 4.51 Hgb 11.8 L Hct 36.7 MCV 81.4 MCH 26.3 L MCHC 32.2 L RDW 16.6 H Plt Count 174 MPV 9.8 Neut % (Auto) 62.9 Lymph % (Auto) 25.0 [place] % (Auto) 7.7 Eos % (Auto) 3.5 Baso % (Auto) 0.9 Neut # 5.1 Lymph # 2.0 Bradley # 0.6 Eos # 0.3 Baso # 0.1 PT 24.7 H INR 2.2 H APTT 43.5 H Sodium 140 Potassium 3.9 Chloride 103 Carbon Dioxide 26 Anion Gap 15 BUN 14 Creatinine 0.8 Est GFR ( Amer) > 60 Est GFR (Non-Af Amer) > 60 POC Glucose (mg/dL) Random Glucose 114 H Calcium 9.3 Total Bilirubin 0.5 AST 20 ALT 25 Alkaline Phosphatase 82 Troponin I < 0.0120 NT-Pro-B Natriuret Pep 1980 H Total Protein 7.2 Albumin 3.4 L Globulin 3.8 Albumin/Globulin Ratio 0.9 L 06/01/17 05:11 WBC RBC Hgb Hct MCV MCH MCHC RDW Plt Count MPV Neut % (Auto) Lymph % (Auto) [place] % (Auto) Eos % (Auto) Baso % (Auto) Neut # Lymph # [place] # Eos # Baso # PT INR APTT Sodium Potassium Chloride Carbon Dioxide Anion Gap BUN Creatinine Est GFR ( Amer) Est GFR (Non-Af Amer) POC Glucose (mg/dL) 94 Random Glucose Calcium Total Bilirubin AST ALT Alkaline Phosphatase Troponin I NT-Pro-B Natriuret Pep Total Protein Albumin Globulin Albumin/Globulin Ratio Assessment & Plan (1) Chest pain Assessment and Plan: The pain the pt is experiencing appears to be GI Pain Status: Acute (2) History of CVA with residual deficit Status: Acute (3) Atrial fibrillation, chronic Assessment and Plan: Pt's Hr at times drops to $% BPM secondary to Metoprolol I have put parameter on this Status: Chronic Priority: Low (4) Diabetes Status: Chronic (5) HLD (hyperlipidemia) Status: Chronic (6) HTN (hypertension) Status: Chronic
[2017-06-01] MEDS ORDERED: Pantoprazole 40 mg EC Tab PO SCH (09:00)
[2017-06-01] MEDS ORDERED: Patient's Own Med (Metformin Er [Glucophage Xr] 750 mg) PO SCH (09:00)
--- NOTE | 2017-06-01 11:23 | RAD ---
HISTORY: chest pain COMPARISON: No prior. FINDINGS: LUNGS: No active pulmonary disease right chest. Borderline left infrahilar patchy infiltrate or atelectasis. PLEURA: No significant pleural effusion identified, no pneumothorax apparent. CARDIOVASCULAR: Cardiomegaly appears stable. No pulmonary vascular derangement identified. OSSEOUS STRUCTURES: No significant abnormalities. VISUALIZED UPPER ABDOMEN: Normal. OTHER FINDINGS: None. IMPRESSION: Borderline left infrahilar patchy density is questioned for which clinical follow-up is advised or consider follow-up radiography or chest CT. Stable cardiomegaly.
[2017-06-01 12:16] LABS: SQUAMOUS EPITHIAL 3 /hpf (0-5); URINE BACTERIA OCC (<OCC); URINE BILIRUBIN NEGATIVE (NEGATIVE); URINE BLOOD SMALL (NEGATIVE); URINE CLARITY SLIGHTY-CLOUDY (Clear); URINE COLOR YELLOW (YELLOW); URINE GLUCOSE (UA) NEG (Normal); URINE LEUKOCYTE ESTERASE NEG Leu/uL (Negative); URINE NITRATE NEGATIVE (NEGATIVE); URINE PROTEIN NEGATIVE (NEGATIVE)
--- NOTE | 2017-06-01 16:45 | CARD ---
APPROVED REPORT EKG Measurement Heart [id number] <Conclusion> Atrial fibrillation with slow ventricular response Nonspecific ST abnormality Abnormal ECG
--- NOTE | 2017-06-01 16:46 | CARD ---
APPROVED REPORT EKG Measurement Heart [id number] <Conclusion> Atrial fibrillation with slow ventricular response Abnormal ECG
[2017-06-01] MEDS: Pantoprazole 40 mg EC Tab PO SCH (21:38)
[2017-06-02 05:07] LABS: HEMOGLOBIN 11.7 g/dL (12.0-16.0); MEAN CELL VOLUME 81.2 fl (81.0-99.0); MEAN CORPUSCULAR HEMOGLOBIN 26.1 pg (27.0-31.0); MEAN CORPUSCULAR HGB CONC 32.2 g/dL (33.0-37.0); RBC 4.49 Mil/uL (3.80-5.20); RED CELL DISTRIBUTION WIDTH 16.5 % (11.5-14.5); WHITE BLOOD COUNT 7.3 K/uL (4.8-10.8)
[2017-06-02 06:40] LABS: INR 1.4 (0.9-1.2); PARTIAL THROMBOPLASTIN TIME 34.3 Seconds (25.6-37.1); PROTHROMBIN TIME 15.5 Seconds (9.8-13.1)
[2017-06-02] MEDS: Pantoprazole 40 mg EC Tab PO SCH ×2 (08:35→21:28)
--- NOTE | 2017-06-02 08:53 | CP.PCM.PN ---
Subjective - Date & Time of Evaluation Date of Evaluation: 06/02/17 Time of Evaluation: 07:10 - Subjective Subjective: Patient seen and examined bedside with Dr Linares. Patient reports feeling better and denies chest pain, SOB. She reports stuck sensation over distal esophagus. No overnight events Cadiologist consulted, no chest pain cardiac origin. GI will see her today and meantime recommends esophagram. Objective - Vital Signs/Intake and Output Vital Signs (last 24 hours): Temp Pulse Resp BP Pulse Ox 97.4 F L 67 20 175/78 H 99 06/02/17 08:09 06/02/17 08:36 06/02/17 08:09 06/02/17 08:36 06/02/17 08:09 - Medications Medications: Current Medications Atorvastatin Calcium (Lipitor) 40 mg PO HS [facility] Last Admin: 06/01/17 21:38 Dose: 40 mg Famotidine (Pepcid) 20 mg PO BID [facility] Last Admin: 06/02/17 08:35 Dose: 20 mg Gabapentin (Neurontin) 300 mg PO HS [facility] Last Admin: 06/01/17 21:37 Dose: 300 mg Lisinopril (Zestril) 20 mg PO DAILY [facility] Last Admin: 06/02/17 08:36 Dose: 20 mg Metformin HCl (Glucophage) 500 mg PO BIDWM [facility] Last Admin: 06/02/17 08:35 Dose: 500 mg Metoprolol Tartrate (Lopressor) 50 mg PO Q12 [facility] Last Admin: 06/01/17 21:37 Dose: 50 mg Ondansetron HCl (Zofran Inj) 4 mg IVP Q6 PRN PRN Reason: Nausea/Vomiting Pantoprazole Sodium (Protonix Ec Tab) 40 mg PO Q12 [facility] Last Admin: 06/02/17 08:35 Dose: 40 mg Rivaroxaban (Xarelto) 20 mg PO DAILY [facility] PRN Reason: Protocol Last Admin: 06/02/17 08:35 Dose: 20 mg Senna/Docusate Sodium (Senokot S 50 Mg-8.6 Mg) 1 tab PO DAILY PRN PRN Reason: Constipation - Labs Labs: 06/02/17 04:20 06/01/17 01:45 PT 15.5 Seconds (9.8-13.1) H D 06/02/17 04:20 INR 1.4 (0.9-1.2) H D 06/02/17 04:20 APTT 34.3 Seconds (25.6-37.1) D 06/02/17 04:20 - Constitutional Appears: Non-toxic, No Acute Distress - Head Exam Head Exam: ATRAUMATIC, NORMOCEPHALIC - Eye Exam Eye Exam: Normal appearance - Neck Exam Neck Exam: Normal Inspection - Respiratory Exam Respiratory Exam: Clear to Ausculation Bilateral. absent: Rales, Rhonchi, Wheezes, Stridor - Cardiovascular Exam Cardiovascular Exam: REGULAR RHYTHM, +S1, +S2 - GI/Abdominal Exam GI & Abdominal Exam: Soft, Normal Bowel Sounds. absent: Tenderness - Extremities Exam Extremities Exam: Normal Inspection. absent: Pedal Edema - Neurological Exam Neurological Exam: Alert, Awake, Oriented x3 Neuro motor strength exam: Left Upper Extremity: 3, Left Lower Extremity: 3 Additional comments: left side residual hemiparesis - Psychiatric Exam Psychiatric exam: Normal Affect, Normal Mood - Skin Skin Exam: Intact Assessment and Plan - Assessment and Plan (Free Text) Plan: 76 y/o chair/bedbound F with PMHx of HTN, HLD, A fib, DM type 2 , CVA admitted for chest pain to r/o ACS. Assessment/Plan: 1) Chest pain may be secondary to GERD -ACS ruled out, trop x 3 neg, EKG no acuteischemic changes -admit in Telemetry -Continuos monitoring tech -EKG in ED showed A fib with SVR -CXR showed cardiomegaly, but no evidence of gross infiltrate or pleural effusion. -Cardiology consult appreciated: chest pain not cardiac origin. 2) Dysphagia -secondary to GERD esophagitis -swallow test normal -GI consult suggested: esophagram with barium 3)Urine frequency -resolved - UA normal 4) GERD c/w home PPI -swallow eval normal -GI comnsult appreciated :esophagram with barium - pepcid 20 mg PO 5) HTN c/w lisinopril 20 mg PO daily 6) A fib -Rate controlled -c/w metoprolol tart 50 mg PO Q12 -c/w xarelto 20 mg PO daily -INR 1.4 subtherapeutic. will discuss with sole rounder -[place] consult appreciated:BP parameters adjusted for metoprolol 7)DM type 2 -c/w metformin GFR >60 f/u HgbA1C 8) DVT prophylaxis on xarelto
[2017-06-02] MEDS ORDERED: Barium Sulfate Susp 0.1% w/v, 0.1% w/w 450 mL Bottle PO ONE (10:00)
--- NOTE | 2017-06-02 15:50 | RAD ---
HISTORY: Dysphagia. COMPARISON: None. TECHNIQUE: A single contrast esophagram was performed using low density barium under fluoroscopic control. Double contrast technique was not utilized to the patient's inability to stand. FINDINGS: Patient tolerated procedure well. ESOPHAGUS: Patient is only able to drink smaller medium boluses of oral contrast material during the examination. The esophagus appears adequately distended in multiple images but there is no was single image were there is an extended contrast column throughout the entire esophagus. No suspicious filling defect or contrast collection was encountered throughout the examination and no definitive full thickening was appreciated throughout the study either. There is no extravasation of oral contrast material. Patient preferred to not drink the entire bottle of the barium further limiting the exam. No definitive pattern of gastroesophageal reflux was encountered. HIATAL HERNIA: None demonstrated. GASTROESOPHAGEAL REFLUX: Not demonstrated. OTHER FINDINGS: None. IMPRESSION: Limited examination as the patient preferred to not drink the entire volume of oral contrast normally utilized for this exam and the patient could not drink more than small to medium mouthfuls of oral contrast material. There is no constricting or obstructing mass seen throughout the esophagus and there is no definitive evidence of gastroesophageal reflux grossly evident.
[2017-06-03 05:44] LABS: BLOOD UREA NITROGEN 12 mg/dl (7-17); CALCIUM 9.1 mg/dL (8.4-10.2); GFR AFRICAN-AMERICAN > 60; GFR NON-AFRICAN AMERICAN > 60
[2017-06-03 07:04] LABS: HEMOGLOBIN 12.7 g/dL (12.0-16.0); MEAN CELL VOLUME 82.4 fl (81.0-99.0); MEAN CORPUSCULAR HEMOGLOBIN 26.3 pg (27.0-31.0); RBC 4.81 Mil/uL (3.80-5.20); RED CELL DISTRIBUTION WIDTH 17.1 % (11.5-14.5); WHITE BLOOD COUNT 7.9 K/uL (4.8-10.8)
[2017-06-03] MEDS: Pantoprazole 40 mg EC Tab PO SCH ×2 (08:55→21:38)
--- NOTE | 2017-06-03 11:03 | CP.PCM.PCO ---
Physician Communication Note - Physician Communication Note Physician Communication Note: Suki Huynh Addendum Addendum: 06/03/17 10:43 CC: Nurse called regarding bradycardia S: Patient a little drowsy, denies SOB or chest pain, nausea, or headache. O: AVSS, HR: 38-52 via telemetry PULM: CTAB CVS: IRR, bradycardia Neuro: At baseline with chronic significant LEFT hemiplegia INTERVENTION: EKG, repeat BP, Spoke with Dr Ibrahim @ 1011am (Will re- evaluate, may change a-fib medication) A/P: 76F with PMH of CVA, A-fib, HTN and experiencing asymptomatic bradycardia with atrial fibrillation despite holding lopressor. Cardiology to re-evaluate and give recommendations. - Cardiology recommendations: d/c lopressor, continue to monitor - d/w Dr Michael 06/03/17 15:53
--- NOTE | 2017-06-03 12:31 | CP.PCM.PN ---
Subjective - Date & Time of Evaluation Date of Evaluation: 06/03/17 Time of Evaluation: 10:00 - Subjective Subjective: Pt is still Bradycardic at times as low as 37 BPM pt remains asymptomatic HR responds to movement and rises apropriately would d/c lopressor and continue to watch Objective - Vital Signs/Intake and Output Vital Signs (last 24 hours): Temp Pulse Resp BP Pulse Ox 97.9 F 63 20 139/82 98 06/03/17 12:00 06/03/17 12:00 06/03/17 12:00 06/03/17 12:00 06/03/17 12:00 - Medications Medications: Current Medications Atorvastatin Calcium (Lipitor) 40 mg PO HS [facility] Last Admin: 06/02/17 21:28 Dose: 40 mg Famotidine (Pepcid) 20 mg PO BID [facility] Last Admin: 06/03/17 08:55 Dose: 20 mg Gabapentin (Neurontin) 300 mg PO HS [facility] Last Admin: 06/02/17 21:27 Dose: 300 mg Lisinopril (Zestril) 20 mg PO DAILY [facility] Last Admin: 06/03/17 08:56 Dose: Not Given Metformin HCl (Glucophage) 500 mg PO BIDWM [facility] Last Admin: 06/03/17 08:54 Dose: 500 mg Metoprolol Tartrate (Lopressor) 50 mg PO Q12 [facility] Last Admin: 06/03/17 08:55 Dose: Not Given Ondansetron HCl (Zofran Inj) 4 mg IVP Q6 PRN PRN Reason: Nausea/Vomiting Pantoprazole Sodium (Protonix Ec Tab) 40 mg PO Q12 [facility] Last Admin: 06/03/17 08:55 Dose: 40 mg Rivaroxaban (Xarelto) 20 mg PO DAILY [facility] PRN Reason: Protocol Last Admin: 06/03/17 08:56 Dose: 20 mg - Labs Labs: 06/03/17 04:20 06/03/17 04:20 PT 15.5 Seconds (9.8-13.1) H D 06/02/17 04:20 INR 1.4 (0.9-1.2) H D 06/02/17 04:20 APTT 34.3 Seconds (25.6-37.1) D 06/02/17 04:20 Assessment and Plan (1) Chest pain Status: Acute (2) History of CVA with residual deficit Status: Acute (3) Atrial fibrillation, chronic Status: Chronic (4) Diabetes Status: Chronic (5) HLD (hyperlipidemia) Status: Chronic (6) HTN (hypertension) Status: Chronic
--- NOTE | 2017-06-03 14:34 | CP.PCM.PN ---
Subjective - Date & Time of Evaluation Date of Evaluation: 06/03/17 Time of Evaluation: 07:25 - Subjective Subjective: Patient seen and examined bedside. Patient reports feeling better. She denies chest pain, dysphagia, SOB, palpitation. Reports no more diarrhea since yesterday. Esophagram done yesterday normal. Pt cleared by GI. 10:30 We are notified by nurse that patient's sales agent on telemetry is registering HR: 38. Patient evaluated and noticed somnolent by AAOx3. denies chest pain, sOB, no confusion. left side residual hemiparesis. Objective - Vital Signs/Intake and Output Vital Signs (last 24 hours): Temp Pulse Resp BP Pulse Ox 97.9 F 63 20 139/82 98 06/03/17 12:00 06/03/17 13:50 06/03/17 12:00 06/03/17 13:50 06/03/17 12:00 - Medications Medications: Current Medications Atorvastatin Calcium (Lipitor) 40 mg PO HS [facility] Last Admin: 06/02/17 21:28 Dose: 40 mg Famotidine (Pepcid) 20 mg PO BID [facility] Last Admin: 06/03/17 08:55 Dose: 20 mg Gabapentin (Neurontin) 300 mg PO HS [facility] Last Admin: 06/02/17 21:27 Dose: 300 mg Lisinopril (Zestril) 20 mg PO DAILY [facility] Last Admin: 06/03/17 13:50 Dose: 20 mg Metformin HCl (Glucophage) 500 mg PO BIDWM [facility] Last Admin: 06/03/17 08:54 Dose: 500 mg Metoprolol Tartrate (Lopressor) 50 mg PO Q12 [facility] Last Admin: 06/03/17 08:55 Dose: Not Given Ondansetron HCl (Zofran Inj) 4 mg IVP Q6 PRN PRN Reason: Nausea/Vomiting Pantoprazole Sodium (Protonix Ec Tab) 40 mg PO Q12 [facility] Last Admin: 06/03/17 08:55 Dose: 40 mg Rivaroxaban (Xarelto) 20 mg PO DAILY [facility] PRN Reason: Protocol Last Admin: 06/03/17 08:56 Dose: 20 mg - Labs Labs: 06/03/17 04:20 06/03/17 04:20 PT 15.5 Seconds (9.8-13.1) H D 06/02/17 04:20 INR 1.4 (0.9-1.2) H D 06/02/17 04:20 APTT 34.3 Seconds (25.6-37.1) D 06/02/17 04:20 - Constitutional Appears: Non-toxic, No Acute Distress - Head Exam Head Exam: ATRAUMATIC, NORMOCEPHALIC - Eye Exam Eye Exam: Normal appearance - ENT Exam ENT Exam: Mucous Membranes Moist - Neck Exam Neck Exam: Normal Inspection - Respiratory Exam Respiratory Exam: Clear to Ausculation Bilateral. absent: Rales, Rhonchi, Wheezes - Cardiovascular Exam Cardiovascular Exam: Irregular Rhythm, +S1, +S2 - GI/Abdominal Exam GI & Abdominal Exam: Soft, Normal Bowel Sounds. absent: Tenderness - Extremities Exam Extremities Exam: Normal Inspection - Back Exam Back Exam: NORMAL INSPECTION - Neurological Exam Neurological Exam: Alert, Awake, Oriented x3 - Psychiatric Exam Psychiatric exam: Normal Mood - Skin Skin Exam: Intact Assessment and Plan - Assessment and Plan (Free Text) Plan: 76 y/o chair/bedbound F with PMHx of HTN, HLD, A fib, DM type 2 , CVA admitted for chest pain to r/o ACS. Assessment/Plan: 1) Chest pain -resolved may be secondary to GERD -ACS ruled out, trop x 3 neg, EKG no acuteischemic changes -admit in Telemetry -Continuos sales agent -EKG in ED showed A fib with SVR -CXR showed cardiomegaly, but no evidence of gross infiltrate or pleural effusion. -Cardiology consult appreciated: chest pain not cardiac origin. 2) Dysphagia -resolved -secondary to GERD esophagitis -swallow test normal -esophagram with barium normal -GI consult appreciated: pt cleared for DC 3)Urine frequency -resolved - UA normal 4) GERD -resolving c/w home PPI -swallow eval normal -GI comnsult appreciated, esophagram normal - pepcid 20 mg PO 5) HTN c/w lisinopril 20 mg PO daily 6) A fib with LVR -uncontrolled -HR: 38 today -metoprolol hold -c/w xarelto 20 mg PO daily -Operations Staff Specialist Security consult appreciated: hold metoprolol and watch 7)DM type 2 -c/w metformin GFR >60 f/u HgbA1C 8) DVT prophylaxis on xarelto
--- NOTE | 2017-06-03 16:20 | CARD ---
APPROVED REPORT EKG Measurement Heart [id number] <Conclusion> Atrial fibrillation with slow ventricular response Nonspecific ST and T wave abnormality Abnormal ECG
[2017-06-04 06:12] LABS: ALBUMIN 3.2 g/dL (3.5-5.0); ALT/SGPT 26 U/L (9-52); AST/SGOT 16 U/L (14-36); BLOOD UREA NITROGEN 11 mg/dl (7-17); CALCIUM 9.1 mg/dL (8.4-10.2); GFR AFRICAN-AMERICAN > 60; GFR NON-AFRICAN AMERICAN > 60
[2017-06-04 06:31] LABS: ALB/GLOB RATIO 0.9 (1.0-2.1)
[2017-06-04] MEDS: Pantoprazole 40 mg EC Tab PO SCH (08:30)
[2017-06-04 12:52] VITALS: BP 139/78; PULSE 69; RESP 20; TEMP 97.8; O2SAT 97
--- NOTE | 2017-06-04 13:00 | CP.PCM.DIS ---
<Hyacinth Maier - Last Filed: 06/04/17 13:56> Provider - Provider Date of Admission: 06/02/17 09:47 Attending physician: Trent Linares MD Time Spent in preparation of Discharge (in minutes): 35 Hospital Course - Lab Results Lab Results: Most Recent Lab Values WBC 7.9 K/uL (4.8-10.8) 06/03/17 04:20 RBC 4.81 Mil/uL (3.80-5.20) 06/03/17 04:20 Hgb 12.7 g/dL (12.0-16.0) 06/03/17 04:20 Hct 39.6 % (34.0-47.0) 06/03/17 04:20 MCV 82.4 fl (81.0-99.0) 06/03/17 04:20 MCH 26.3 pg (27.0-31.0) L 06/03/17 04:20 MCHC 32.0 g/dL (33.0-37.0) L 06/03/17 04:20 RDW 17.1 % (11.5-14.5) H 06/03/17 04:20 Plt Count 160 K/uL (130-400) 06/03/17 04:20 MPV 9.8 fl (7.2-11.7) 06/01/17 01:45 Neut % (Auto) 62.9 % (50.0-75.0) 06/01/17 01:45 Lymph % (Auto) 25.0 % (20.0-40.0) 06/01/17 01:45 [place] % (Auto) 7.7 % (0.0-10.0) 06/01/17 01:45 Eos % (Auto) 3.5 % (0.0-4.0) 06/01/17 01:45 Baso % (Auto) 0.9 % (0.0-2.0) 06/01/17 01:45 Neut # 5.1 K/uL (1.8-7.0) 06/01/17 01:45 Lymph # 2.0 K/uL (1.0-4.3) 06/01/17 01:45 [place] # 0.6 K/uL (0.0-0.8) 06/01/17 01:45 Eos # 0.3 K/uL (0.0-0.7) 06/01/17 01:45 Baso # 0.1 K/uL (0.0-0.2) 06/01/17 01:45 PT 15.5 Seconds (9.8-13.1) H D 06/02/17 04:20 INR 1.4 (0.9-1.2) H D 06/02/17 04:20 APTT 34.3 Seconds (25.6-37.1) D 06/02/17 04:20 Sodium 139 mmol/l (132-148) 06/04/17 05:30 Potassium 3.7 MMOL/L (3.6-5.0) 06/04/17 05:30 Chloride 105 mmol/L (98-107) 06/04/17 05:30 Carbon Dioxide 25 mmol/L (22-30) 06/04/17 05:30 Anion Gap 13 (10-20) 06/04/17 05:30 BUN 11 mg/dl (7-17) 06/04/17 05:30 Creatinine 0.7 mg/dl (0.7-1.2) 06/04/17 05:30 Est GFR ( Amer) > 60 06/04/17 05:30 Est GFR (Non-Af Amer) > 60 06/04/17 05:30 POC Glucose (mg/dL) 167 mg/dL (65-110) H 06/04/17 10:50 Random Glucose 114 mg/dL (65-105) H 06/04/17 05:30 Hemoglobin A1c 7.3 % (4.2-6.5) H 06/01/17 17:57 Calcium 9.1 mg/dL (8.4-10.2) 06/04/17 05:30 Total Bilirubin 0.6 mg/dl (0.2-1.3) 06/04/17 05:30 AST 16 U/L (14-36) 06/04/17 05:30 ALT 26 U/L (9-52) 06/04/17 05:30 Alkaline Phosphatase 87 U/L (38-126) 06/04/17 05:30 Troponin I < 0.0120 ng/mL (0.00-0.120) 06/01/17 16:31 NT-Pro-B Natriuret Pep 1980 pg/ml (0-900) H 06/01/17 01:45 Total Protein 6.8 G/DL (6.3-8.2) 06/04/17 05:30 Albumin 3.2 g/dL (3.5-5.0) L 06/04/17 05:30 Globulin 3.6 gm/dL (2.2-3.9) 06/04/17 05:30 Albumin/Globulin Ratio 0.9 (1.0-2.1) L 06/04/17 05:30 TSH 3rd Generation 1.40 mIU/ML (0.46-4.68) 06/03/17 10:36 Urine Color Yellow (YELLOW) 06/01/17 10:43 Urine Clarity Slighty-cloudy (Clear) 06/01/17 10:43 Urine pH 5.0 (5.0-8.0) 06/01/17 10:43 Ur Specific [place] 1.012 (1.003-1.030) 06/01/17 10:43 Urine Protein Negative mg/dL (NEGATIVE) 06/01/17 10:43 Urine Glucose (UA) Neg mg/dL (Normal) 06/01/17 10:43 Urine Ketones Negative mg/dL (NEGATIVE) 06/01/17 10:43 Urine Blood Small (NEGATIVE) 06/01/17 10:43 Urine Nitrate Negative (NEGATIVE) 06/01/17 10:43 Urine Bilirubin Negative (NEGATIVE) 06/01/17 10:43 Urine Urobilinogen 2.0 mg/dL (0.2-1.0) H 06/01/17 10:43 Ur Leukocyte Esterase Neg Corey/uL (Negative) 06/01/17 10:43 Urine RBC (Auto) 3 /hpf (0-3) 06/01/17 10:43 Urine Microscopic WBC 1 /hpf (0-5) 06/01/17 10:43 Ur Squamous Epith Cells 3 /hpf (0-5) 06/01/17 10:43 Urine Bacteria Occ (<OCC) H 06/01/17 10:43 - Hospital Course Hospital Course: 76 y/o chair/bedbound F with PMHx of HTN, HLD, A fib, DM type 2 , 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 Patient states that she started having chest pain after she eats solid foods and drinks fluids. She feels that the food and fluids are getting stuck in the low chest close to her stomach, associated with nausea without vomiting. C/o episodes of acid reflux sensation coming from her stomach to her throat. However on thursday night, she had an episode of chest pain associated with profuse sweating, and she was not eating at that time. She fell asleep and the woke up thursday without any complains. Patient states that last night she was eating well in upright position,but when she tried to lie down right after dinner,she started having low chest pain. Denies any chest pain at this evaluation. Denies fevers, chills,SOB, palpitations, abd pain, or urinary symptoms. Reports that recently has been urinating more than usual. Patient evaluated by Director Labor Standards Dr Barney(covering Dr Myers). Chest pain not cardiac etiology, possible secondary to GERD. ACS ruled out, EKC chronic AF with LVR, trop x [address] Barney consulted. Esophagram done normal, dysphagia and chest pain resoleved. patient on pantoprazol and famotidine. Patient noticed yesterday with HR: 38, asymptomatic. Director Labor Standards reconsulted and evaluated the patient. Metoprolol was hold, no other bradycardia episodes noted overnight and during morning had 2 hours HR: 41-45. TSH normal. Director Labor Standards notified by phone and reports that patient is cleared to be discharged. Patient will have follow up outpatient with Dr Myers (patient's mortgage servicing specialist), Dr Barney, Dr Linares. Patient this morning seen by Dr Dow. patient asymptomatic, hemodynamically stable HR: 69 b/min. patient agree to be discharged and cleared by consultants. Metoprolol hold and patient aware that wont take the medication until evaluated by Dr Myers. Diagnosis 1) Chest pain -resolved -ACS ruled out, trop x 3 neg, EKG no acuteischemic changes 2) Dysphagia -resolved -secondary to GERD esophagitis -swallow test normal -esophagram with barium normal -GI consult appreciated: pt cleared for DC 3) GERD -resolved c/w home PPI -swallow eval normal 4) HTN c/w lisinopril 20 mg PO daily 5) A fib with LVR -metoprolol hold -c/w xarelto 20 mg PO daily - 6)DM type 2 -c/w metformin GFR >60 --hga1c 7.3 Discharge Exam - Head Exam Head Exam: ATRAUMATIC, NORMOCEPHALIC - Eye Exam Eye Exam: Normal appearance - Respiratory Exam Respiratory Exam: absent: Rales, Rhonchi, Wheezes - Cardiovascular Exam Cardiovascular Exam: Irregular Rhythm, +S1, +S2 - GI/Abdominal Exam GI & Abdominal Exam: Normal Bowel Sounds, Soft. absent: Guarding, Rebound - Back Exam Back exam: NORMAL INSPECTION - Neurological Exam Neurological exam: Alert, Oriented x3 Additional comments: left side total residual hemiparesis - Psychiatric Exam Psychiatric exam: Normal Affect, Normal Mood - Skin Skin Exam: Intact, Normal Color Discharge Plan - Follow Up Plan Condition: FAIR Disposition: HOME/ ROUTINE Additional Instructions: Follow up Dr Barney 06/09/17 at 3:30 PM [place] [facility]. -Follow up Dr Linares in 10-14 days -Follow up Dr Myers. Pt aware and will call Dr Myers office [phone] to set appt 06/17 or 06/18/17 -If Chest pain, SOB, syncope come back to ED -Patient advised not to take METOPROLOL until patient seen by Director Labor Standards. Referrals: Marco Myers MD [Staff Provider] - Trent Linares MD [Staff Provider] - Glen Barney MD, PhD [Staff Provider] - (Follow up Dr Barney scheduled appt 06/09/17 at 3:30Pm at [id number] [facility] [id number]) <Corwin Dow - Last Filed: 06/05/17 06:51> Provider - Provider Date of Admission: 06/02/17 09:47 Attending physician: Trent Linares MD Hospital Course - Lab Results Lab Results: Most Recent Lab Values WBC 7.9 K/uL (4.8-10.8) 06/03/17 04:20 RBC 4.81 Mil/uL (3.80-5.20) 06/03/17 04:20 Hgb 12.7 g/dL (12.0-16.0) 06/03/17 04:20 Hct 39.6 % (34.0-47.0) 06/03/17 04:20 MCV 82.4 fl (81.0-99.0) 06/03/17 04:20 MCH 26.3 pg (27.0-31.0) L 06/03/17 04:20 MCHC 32.0 g/dL (33.0-37.0) L 06/03/17 04:20 RDW 17.1 % (11.5-14.5) H 06/03/17 04:20 Plt Count 160 K/uL (130-400) 06/03/17 04:20 MPV 9.8 fl (7.2-11.7) 06/01/17 01:45 Neut % (Auto) 62.9 % (50.0-75.0) 06/01/17 01:45 Lymph % (Auto) 25.0 % (20.0-40.0) 06/01/17 01:45 [place] % (Auto) 7.7 % (0.0-10.0) 06/01/17 01:45 Eos % (Auto) 3.5 % (0.0-4.0) 06/01/17 01:45 Baso % (Auto) 0.9 % (0.0-2.0) 06/01/17 01:45 Neut # 5.1 K/uL (1.8-7.0) 06/01/17 01:45 Lymph # 2.0 K/uL (1.0-4.3) 06/01/17 01:45 [place] # 0.6 K/uL (0.0-0.8) 06/01/17 01:45 Eos # 0.3 K/uL (0.0-0.7) 06/01/17 01:45 Baso # 0.1 K/uL (0.0-0.2) 06/01/17 01:45 PT 15.5 Seconds (9.8-13.1) H D 06/02/17 04:20 INR 1.4 (0.9-1.2) H D 06/02/17 04:20 APTT 34.3 Seconds (25.6-37.1) D 06/02/17 04:20 Sodium 139 mmol/l (132-148) 06/04/17 05:30 Potassium 3.7 MMOL/L (3.6-5.0) 06/04/17 05:30 Chloride 105 mmol/L (98-107) 06/04/17 05:30 Carbon Dioxide 25 mmol/L (22-30) 06/04/17 05:30 Anion Gap 13 (10-20) 06/04/17 05:30 BUN 11 mg/dl (7-17) 06/04/17 05:30 Creatinine 0.7 mg/dl (0.7-1.2) 06/04/17 05:30 Est GFR ( Amer) > 60 06/04/17 05:30 Est GFR (Non-Af Amer) > 60 06/04/17 05:30 POC Glucose (mg/dL) 167 mg/dL (65-110) H 06/04/17 10:50 Random Glucose 114 mg/dL (65-105) H 06/04/17 05:30 Hemoglobin A1c 7.3 % (4.2-6.5) H 06/01/17 17:57 Calcium 9.1 mg/dL (8.4-10.2) 06/04/17 05:30 Total Bilirubin 0.6 mg/dl (0.2-1.3) 06/04/17 05:30 AST 16 U/L (14-36) 06/04/17 05:30 ALT 26 U/L (9-52) 06/04/17 05:30 Alkaline Phosphatase 87 U/L (38-126) 06/04/17 05:30 Troponin I < 0.0120 ng/mL (0.00-0.120) 06/01/17 16:31 NT-Pro-B Natriuret Pep 1980 pg/ml (0-900) H 06/01/17 01:45 Total Protein 6.8 G/DL (6.3-8.2) 06/04/17 05:30 Albumin 3.2 g/dL (3.5-5.0) L 06/04/17 05:30 Globulin 3.6 gm/dL (2.2-3.9) 06/04/17 05:30 Albumin/Globulin Ratio 0.9 (1.0-2.1) L 06/04/17 05:30 TSH 3rd Generation 1.40 mIU/ML (0.46-4.68) 06/03/17 10:36 Urine Color Yellow (YELLOW) 06/01/17 10:43 Urine Clarity Slighty-cloudy (Clear) 06/01/17 10:43 Urine pH 5.0 (5.0-8.0) 06/01/17 10:43 Ur Specific [place] 1.012 (1.003-1.030) 06/01/17 10:43 Urine Protein Negative mg/dL (NEGATIVE) 06/01/17 10:43 Urine Glucose (UA) Neg mg/dL (Normal) 06/01/17 10:43 Urine Ketones Negative mg/dL (NEGATIVE) 06/01/17 10:43 Urine Blood Small (NEGATIVE) 06/01/17 10:43 Urine Nitrate Negative (NEGATIVE) 06/01/17 10:43 Urine Bilirubin Negative (NEGATIVE) 06/01/17 10:43 Urine Urobilinogen 2.0 mg/dL (0.2-1.0) H 06/01/17 10:43 Ur Leukocyte Esterase Neg Corey/uL (Negative) 06/01/17 10:43 Urine RBC (Auto) 3 /hpf (0-3) 06/01/17 10:43 Urine Microscopic WBC 1 /hpf (0-5) 06/01/17 10:43 Ur Squamous Epith Cells 3 /hpf (0-5) 06/01/17 10:43 Urine Bacteria Occ (<OCC) H 06/01/17 10:43 Attending/Attestation - Attestation I have personally seen and examined this patient.: Yes I have fully participated in the care of the patient.: Yes I have reviewed all pertinent clinical information, including history, physical exam and plan: Yes
--- NOTE | 2017-06-04 15:35 | CP.PCM.PN ---
Subjective - Date & Time of Evaluation Date of Evaluation: 06/03/17 Time of Evaluation: 09:00 - Subjective Subjective: doing well Objective - Vital Signs/Intake and Output Vital Signs (last 24 hours): Temp Pulse Resp BP Pulse Ox 97.8 F 69 20 139/78 97 06/04/17 12:00 06/04/17 12:00 06/04/17 12:00 06/04/17 12:00 06/04/17 12:00 - Medications Medications: Current Medications Atorvastatin Calcium (Lipitor) 40 mg PO HS [facility] Last Admin: 06/03/17 21:38 Dose: 40 mg Gabapentin (Neurontin) 300 mg PO HS [facility] Last Admin: 06/03/17 21:38 Dose: 300 mg Lisinopril (Zestril) 20 mg PO DAILY [facility] Last Admin: 06/04/17 08:30 Dose: 20 mg Metformin HCl (Glucophage) 500 mg PO BIDWM [facility] Last Admin: 06/04/17 08:29 Dose: 500 mg Ondansetron HCl (Zofran Inj) 4 mg IVP Q6 PRN PRN Reason: Nausea/Vomiting Pantoprazole Sodium (Protonix Ec Tab) 40 mg PO Q12 [facility] Last Admin: 06/04/17 08:30 Dose: 40 mg Rivaroxaban (Xarelto) 20 mg PO DAILY [facility] PRN Reason: Protocol Last Admin: 06/04/17 08:30 Dose: 20 mg - Labs Labs: 06/03/17 04:20 06/04/17 05:30 PT 15.5 Seconds (9.8-13.1) H D 06/02/17 04:20 INR 1.4 (0.9-1.2) H D 06/02/17 04:20 APTT 34.3 Seconds (25.6-37.1) D 06/02/17 04:20 - Respiratory Exam Respiratory Exam: NORMAL BREATHING PATTERN - Cardiovascular Exam Cardiovascular Exam: REGULAR RHYTHM - GI/Abdominal Exam GI & Abdominal Exam: Soft, Normal Bowel Sounds Assessment and Plan - Assessment and Plan (Free Text) Assessment: 76 yo female with gerd doing well dc planning
--- NOTE | 2017-06-04 15:35 | CP.PCM.PN ---
Subjective - Date & Time of Evaluation Date of Evaluation: 06/04/17 Time of Evaluation: 09:30 - Subjective Subjective: tolerating diet Objective - Vital Signs/Intake and Output Vital Signs (last 24 hours): Temp Pulse Resp BP Pulse Ox 97.8 F 69 20 139/78 97 06/04/17 12:00 06/04/17 12:00 06/04/17 12:00 06/04/17 12:00 06/04/17 12:00 - Medications Medications: Current Medications Atorvastatin Calcium (Lipitor) 40 mg PO HS [facility] Last Admin: 06/03/17 21:38 Dose: 40 mg Gabapentin (Neurontin) 300 mg PO HS [facility] Last Admin: 06/03/17 21:38 Dose: 300 mg Lisinopril (Zestril) 20 mg PO DAILY [facility] Last Admin: 06/04/17 08:30 Dose: 20 mg Metformin HCl (Glucophage) 500 mg PO BIDWM [facility] Last Admin: 06/04/17 08:29 Dose: 500 mg Ondansetron HCl (Zofran Inj) 4 mg IVP Q6 PRN PRN Reason: Nausea/Vomiting Pantoprazole Sodium (Protonix Ec Tab) 40 mg PO Q12 [facility] Last Admin: 06/04/17 08:30 Dose: 40 mg Rivaroxaban (Xarelto) 20 mg PO DAILY [facility] PRN Reason: Protocol Last Admin: 06/04/17 08:30 Dose: 20 mg - Labs Labs: 06/03/17 04:20 06/04/17 05:30 PT 15.5 Seconds (9.8-13.1) H D 06/02/17 04:20 INR 1.4 (0.9-1.2) H D 06/02/17 04:20 APTT 34.3 Seconds (25.6-37.1) D 06/02/17 04:20 - Respiratory Exam Respiratory Exam: NORMAL BREATHING PATTERN - Cardiovascular Exam Cardiovascular Exam: REGULAR RHYTHM - GI/Abdominal Exam GI & Abdominal Exam: Soft, Normal Bowel Sounds Assessment and Plan - Assessment and Plan (Free Text) Assessment: 76 yo female with gerd doing well dc planning
== END 2017-06-04 16:00 | disposition home health service (06) | DRG 392 ==
LOC: H.ER 00:49 → H.ERHOLD 01:32 → H.TEL 03:22 → OBSVTOIN 06-02 09:47
PROVIDERS: ADMIT Family Medicine; ATTEND Family Medicine
DX: K21.0 Gastro-esophageal reflux disease with esophagitis (principal); I48.2 Chronic atrial fibrillation; I69.354 Hemiplegia and hemiparesis following cerebral infarction affecting left non-dominant side; E11.9 Type 2 diabetes mellitus without complications; Z79.01 Long term (current) use of anticoagulants; I10 Essential (primary) hypertension; E78.00 Pure hypercholesterolemia, unspecified; E78.5 Hyperlipidemia, unspecified; Z96.642 Presence of left artificial hip joint; R13.10 Dysphagia, unspecified; Z74.01 Bed confinement status; K29.70 Gastritis, unspecified, without bleeding; R00.1 Bradycardia, unspecified; R35.0 Frequency of micturition; M19.90 Unspecified osteoarthritis, unspecified site

== ENCOUNTER 2018-02-28 20:11 | Emergency (ER) | payer MEDICARE, OTHER ==
[2018-02-28 20:11] VITALS: BMI 38.7
[2018-02-28 20:19] VITALS: TEMP 98.6
[2018-02-28 22:26] LABS: BASO # 0.1 K/uL (0.0-0.2); BASO % 0.8 % (0.0-2.0); EOS # 0.2 K/uL (0.0-0.7); EOS % 2.6 % (0.0-4.0); HEMOGLOBIN 14.7 g/dL (12.0-16.0); LYMPH # 1.8 K/uL (1.0-4.3); LYMPH % 23.8 % (20.0-40.0); MEAN CELL VOLUME 86.4 fl (81.0-99.0); MEAN CORPUSCULAR HEMOGLOBIN 28.4 pg (27.0-31.0); MEAN CORPUSCULAR HGB CONC 32.9 g/dL (33.0-37.0); MEAN PLATELET VOLUME 10.6 fl (7.2-11.7); MONO # 0.5 K/uL (0.0-0.8); MONO % 6.9 % (0.0-10.0); NEUT # 4.9 K/uL (1.8-7.0); NEUT % 65.9 % (50.0-75.0); RBC 5.17 Mil/uL (3.80-5.20); RED CELL DISTRIBUTION WIDTH 16.5 % (11.5-14.5); WHITE BLOOD COUNT 7.4 K/uL (4.8-10.8)
--- NOTE | 2018-02-28 22:30 | ED PDOC ---
Addendum entered and electronically signed by Gio Noriega PA 03/03/18 10:32: Addendum Addendum: 03/03/18 10:31 URINE CX CONTAMINATED AND ADVISED REPEAT SPECIMEN. PATIENT ON MACROBID. D/W HER. SHE WILL F/U WITH PMD AFTER COMPLETION OF MACROBID TO REPEAT. 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 As per daughters, approximately one hour prior to arrival, they witnessed the patient have a brief episode where her gaze and head were fixed to the left, which they presumed to be seizure activity despite the patient talking through the event and no neurological deficits noted during it. Patient had no complaint at the time or now, as she quickly returned to baseline with full memory of what happened. Her daughters report this is the third time she has done this in the past year, once in June, and once in September. Pt states being evaluated by her neurologist in December where she had an EEG and head CT done. 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 Pt denies changes in speech or cognition. PMD: José Manuel Neurologist: Saul Shoelace Tipping Machine Operator: Liz <Irma Sky K - Last Filed: 03/01/18 05:44> <Rose Dhaliwal F - Last Filed: 03/03/18 09:34> Time Seen by Provider: 02/28/18 20:22 Chief Complaint (Nursing): Altered Mental Status Supervising Attending Note - Attestation: I have personally seen and examined this patient.: No I have reviewed all pertinent clinical information: Yes <Rose Dhaliwal - Last Filed: 03/03/18 09:34> Past Medical History Reviewed: Historical Data, Nursing Documentation, Vital Signs Vital Signs: Last Vital Signs Temp 98.6 F 02/28/18 20:13 Pulse 88 02/28/18 20:13 Resp 18 02/28/18 20:13 BP 183/89 H 02/28/18 20:13 Pulse Ox 99 02/28/18 20:13 - Medical History PMH: Arthritis, Atrial Fibrillation, Cardia Arrhythmia, CVA, Diabetes (type 2), Gastritis, HTN, Hypercholesterolemia Denies: HIV, Chronic Kidney Disease - Surgical History Other surgeries: hysterectomy; hip replacement - Family History Family History: States: Unknown Family Hx - Social History Current smoker - smoking cessation education provided: No Alcohol: None Drugs: Denies <Irma Sky - Last Filed: 03/01/18 05:44> Vital Signs: Last Vital Signs Temp 98.6 F 02/28/18 20:13 Pulse 70 02/28/18 22:33 Resp 20 02/28/18 22:33 BP 135/101 H 02/28/18 22:33 Pulse Ox 99 03/01/18 05:44 <Rose Dhaliwal F - Last Filed: 03/03/18 09:34> - Home Medications Home Medications: Ambulatory Orders Medication Instructions Recorded RX: MetFORMIN ER [Glucophage XR] 750 mg PO DAILY 09/01/16 RX: Gabapentin [Neurontin] 300 mg PO HS 10/18/16 RX: Lisinopril [Zestril] 20 mg PO DAILY #30 10/21/16 RX: Pantoprazole [Protonix EC Tab] 40 mg PO DAILY #30 ect 10/21/16 RX: Rivaroxaban [Xarelto] 20 mg PO DAILY #30 tab 10/21/16 RX: Atorvastatin [Lipitor] 40 mg PO HS 06/01/17 RX: Gabapentin [Neurontin] 300 mg PO HS cap 06/04/17 Acetaminophen [Acetaminophen 8 650 mg PO Q8 PRN #21 tablet.er 03/01/18 Hour] Nitrofurantoin Macrocrystals 100 mg PO BID #14 cap 03/01/18 [Macrobid] - Allergies Allergies/Adverse Reactions: Allergies Allergy/AdvReac Type Severity Reaction Status Date / Time lactose AdvReac DIARRHEA Verified 02/28/18 20:19 Review of Systems ROS Statement: Except As Marked, All Systems Reviewed And Found Negative Neurological: Positive for: Other (possible seizure activity). Negative for: Change in Speech (or cognition) <Irma Sky - Last Filed: 03/01/18 05:44> Physical Exam - Reviewed Nursing Documentation Reviewed: Yes Vital Signs Reviewed: Yes - Physical Exam Comments: GENERAL APPEARANCE: Patient is awake, alert, oriented x 3, in no acute distress. SKIN: Warm, dry; (-) cyanosis HEAD: (-) scalp swelling, (-) scalp tenderness. EYES: (-) conjunctival pallor, (-) scleral icterus, (-) nystagmus. ENMT: Mucous membranes moist. Airway patent: (-) stridor. NECK: (-) tenderness, (-) stiffness, (-) lymphadenopathy. HEART AND CARDIOVASCULAR: (-) irregularity; (-) murmur, (-) gallop. CHEST AND RESPIRATORY: (-) rales, (-) rhonchi, (-) wheezes; breath sounds equal. ABDOMEN: Soft, (-) distention, (-) tenderness, (-) guarding. NEURO AND PSYCH: Mental status as above. pediatric medical assistant: Intact. Pupils equal and reactive; EOMI; (+) left sided deficit from previous CVA. <Irma Sky - Last Filed: 03/01/18 05:44> - Laboratory Results Result Diagrams: 02/28/18 21:15 02/28/18 21:15 - ECG O2 Sat by Pulse Oximetry: 99 (RA) Pulse Ox Interpretation: Normal <Irma Sky - Last Filed: 03/01/18 05:44> - Laboratory Results Result Diagrams: 02/28/18 21:15 02/28/18 21:15 <Rose Dhaliwal - Last Filed: 03/03/18 09:34> Medical Decision Making Medical Decision Making: Initial Impression: concern for seizure Time: 2034 Initial Plan: --CT head without contrast --EKG --U-dip --CBC with differential --CXR --Accucheck --Urinalysis EKG: Afib @ 67bpm (-) ST elevation, QTc 441 CXR: unchanged from prior [address] without contrast: 1) There is generalized parenchymal atrophy noted as demonstrated by symmetrical dilatation of ventricles and sulci. 2) Chronic periventricular and subcortical microvascular disease is seen. 3) Extensive encephalomalacia involving frontoparietal and occiptal lobes, compatible with an old infarct. 4) No acute intracranial pathology. Electronically signed on Feb 28, 2018 0:09:47 PM EDT by Jaswinder Cordero M.D. ([facility]) [id number] Accucheck: 183 CBC unremarkable. Repeat BP: 135/101 2300 U/A (+) UTI. Macrobid 100mg PO ordered. 0200 Multiple attempts to obtain a CMP unsuccessful as lab reported the specimen was hemolyzed on 3 separate occasions. Nursing railroad car repair supervisor made aware. Case discussed with ED MD Fernandes who states patient can be discharged at this time given patient's neurologist has already evaluated this complaint outpatient. On re-evaluation, patient reports improvement of symptoms. On exam, patient remains AAOx3, in no acute distress. Lungs clear to auscultation, cardiac RRR, abdomen soft, non-tender, repeat neuro exam shows no focal findings. VSS, stable for discharge. Lab/Diagnostic results d/w the patient in great detail. Diagnosis of concern for seizure, UTI d/w the patient and daughters at bedside. Based on history, exam and diagnostic results, plan will be for outpatient follow up. Patient instructed to follow-up with pmd / referral provided / the clinic in 1- 2 days without fail. Advised to take medication as prescribed. Return to the emergency room at any time for any new or worsening symptoms. Patient states she fully agrees with and understands discharge instructions. States that she agrees with the plan and disposition. Verbalized and repeated discharge instructions and plan. I have given the patient opportunity to ask any additional questions. Scribe Attestation: Documented by Annika Zarate, acting as a scribe for Irma Sky PA-C. Provider Scribe Attestation: All medical record entries made by the Scribe were at my direction and personally dictated by me. I have reviewed the chart and agree that the record accurately reflects my personal performance of the history, physical exam, medical decision making, and the department course for this patient. I have also personally directed, reviewed, and agree with the discharge instructions and disposition. <Irma Sky - Last Filed: 03/01/18 05:44> Disposition - Patient ED Disposition Is Patient to be Admitted: No Counseled Patient/Family Regarding: Studies Performed, Diagnosis, Need For Followup - Disposition Disposition: Routine/Home Disposition Time: 02:02 - POA Present On Arrival: None <Irma Sky - Last Filed: 03/01/18 05:44> <Rose Dhaliwal - Last Filed: 03/03/18 09:34> - Clinical Impression Clinical Impression: Chronic focal neurological deficit, UTI (urinary tract infection) - Disposition Referrals: Trent Linares MD [Staff Provider] - Condition: FAIR Additional Instructions: The emergency medical care you received today was directed towards the acute presenting symptoms. If you were prescribed any medication, please fill it and give as directed. It may take several days for your symptoms to resolve. Return to the Emergency Department at any time if symptoms worsen, do not improve, or if any other problems arise. Please contact your doctor in 2 days for re-evaluation and follow up / or call one of the physicians/clinics you have been referred to that are listed on the Patient Visit Information form that is included in your discharge packet. Bring any paperwork you were given at discharge with you along with any medications to your follow up visit. Our treatment cannot replace ongoing medical care by a primary care provider (PCP) outside of the emergency department. Prescriptions: Acetaminophen [Acetaminophen 8 Hour] 650 mg PO Q8 PRN #21 tablet.er PRN Reason: Pain, Moderate (4-7) Nitrofurantoin Macrocrystals [Macrobid] 100 mg PO BID #14 cap Instructions: Urinary Tract Infections in Adults Forms: [employer] (Khmer) Print Language: MONGOLIAN Results - Lab Results Lab Results: 03/01/18 02/28/18 02/28/18 01:00 22:29 21:15 WBC RBC Hgb Hct MCV MCH MCHC RDW Plt Count MPV Neut % (Auto) Lymph % (Auto) [place] % (Auto) Eos % (Auto) Baso % (Auto) Neut # (Auto) Lymph # (Auto) [place] # (Auto) Eos # (Auto) Baso # (Auto) PT 20.9 H INR 1.9 APTT 46.4 H Sodium Potassium Chloride Carbon Dioxide Anion Gap BUN Creatinine Est GFR ( Amer) Est GFR (Non-Af Amer) POC Glucose (mg/dL) 183 H Random Glucose Calcium Total Bilirubin AST ALT Alkaline Phosphatase Troponin I NT-Pro-B Natriuret Pep Total Protein Albumin Globulin Albumin/Globulin Ratio Urine Color Yellow Urine Clarity Turbid Urine pH 5.0 Ur Specific [place] 1.017 Urine Protein 30 Urine Glucose (UA) Neg Urine Ketones Negative Urine Blood Negative Urine Nitrate Positive H Urine Bilirubin Negative Urine Urobilinogen 2.0 H Ur Leukocyte Esterase Trace Urine RBC (Auto) 93 H Urine Microscopic WBC 53 H Ur Squamous Epith Cells 4 Urine Bacteria Occ H 02/28/18 02/28/18 21:15 21:15 WBC 7.4 RBC 5.17 Hgb 14.7 D Hct 44.6 MCV 86.4 D MCH 28.4 MCHC 32.9 L RDW 16.5 H Plt Count 204 MPV 10.6 Neut % (Auto) 65.9 Lymph % (Auto) 23.8 [place] % (Auto) 6.9 Eos % (Auto) 2.6 Baso % (Auto) 0.8 Neut # (Auto) 4.9 Lymph # (Auto) 1.8 [place] # (Auto) 0.5 Eos # (Auto) 0.2 Baso # (Auto) 0.1 PT INR APTT Sodium Cancelled Potassium Cancelled Chloride Cancelled Carbon Dioxide Cancelled Anion Gap Cancelled BUN Cancelled Creatinine Cancelled Est GFR ( Amer) Cancelled Est GFR (Non-Af Amer) Cancelled POC Glucose (mg/dL) Random Glucose Cancelled Calcium Cancelled Total Bilirubin Cancelled AST Cancelled ALT Cancelled Alkaline Phosphatase Cancelled Troponin I Cancelled NT-Pro-B Natriuret Pep Cancelled Total Protein Cancelled Albumin Cancelled Globulin Cancelled Albumin/Globulin Ratio Cancelled Urine Color Urine Clarity Urine pH Ur Specific [place] Urine Protein Urine Glucose (UA) Urine Ketones Urine Blood Urine Nitrate Urine Bilirubin Urine Urobilinogen Ur Leukocyte Esterase Urine RBC (Auto) Urine Microscopic WBC Ur Squamous Epith Cells Urine Bacteria <Irma Sky - Last Filed: 03/01/18 05:44> - Lab Results Lab Results: 03/01/18 02/28/18 02/28/18 01:00 22:29 21:15 WBC RBC Hgb Hct MCV MCH MCHC RDW Plt Count MPV Neut % (Auto) Lymph % (Auto) [place] % (Auto) Eos % (Auto) Baso % (Auto) Neut # (Auto) Lymph # (Auto) [place] # (Auto) Eos # (Auto) Baso # (Auto) PT 20.9 H INR 1.9 APTT 46.4 H Sodium Potassium Chloride Carbon Dioxide Anion Gap BUN Creatinine Est GFR ( Amer) Est GFR (Non-Af Amer) POC Glucose (mg/dL) 183 H Random Glucose Calcium Total Bilirubin AST ALT Alkaline Phosphatase Troponin I NT-Pro-B Natriuret Pep Total Protein Albumin Globulin Albumin/Globulin Ratio Urine Color Yellow Urine Clarity Turbid Urine pH 5.0 Ur Specific [place] 1.017 Urine Protein 30 Urine Glucose (UA) Neg Urine Ketones Negative Urine Blood Negative Urine Nitrate Positive H Urine Bilirubin Negative Urine Urobilinogen 2.0 H Ur Leukocyte Esterase Trace Urine RBC (Auto) 93 H Urine Microscopic WBC 53 H Ur Squamous Epith Cells 4 Urine Bacteria Occ H 02/28/18 02/28/18 21:15 21:15 WBC 7.4 RBC 5.17 Hgb 14.7 D Hct 44.6 MCV 86.4 D MCH 28.4 MCHC 32.9 L RDW 16.5 H Plt Count 204 MPV 10.6 Neut % (Auto) 65.9 Lymph % (Auto) 23.8 [place] % (Auto) 6.9 Eos % (Auto) 2.6 Baso % (Auto) 0.8 Neut # (Auto) 4.9 Lymph # (Auto) 1.8 [place] # (Auto) 0.5 Eos # (Auto) 0.2 Baso # (Auto) 0.1 PT INR APTT Sodium Cancelled Potassium Cancelled Chloride Cancelled Carbon Dioxide Cancelled Anion Gap Cancelled BUN Cancelled Creatinine Cancelled Est GFR ( Amer) Cancelled Est GFR (Non-Af Amer) Cancelled POC Glucose (mg/dL) Random Glucose Cancelled Calcium Cancelled Total Bilirubin Cancelled AST Cancelled ALT Cancelled Alkaline Phosphatase Cancelled Troponin I Cancelled NT-Pro-B Natriuret Pep Cancelled Total Protein Cancelled Albumin Cancelled Globulin Cancelled Albumin/Globulin Ratio Cancelled Urine Color Urine Clarity Urine pH Ur Specific [place] Urine Protein Urine Glucose (UA) Urine Ketones Urine Blood Urine Nitrate Urine Bilirubin Urine Urobilinogen Ur Leukocyte Esterase Urine RBC (Auto) Urine Microscopic WBC Ur Squamous Epith Cells Urine Bacteria <Rose Dhaliwal - Last Filed: 03/03/18 09:34>
[2018-02-28 22:34] VITALS: BP 135/101; PULSE 70; RESP 20
[2018-02-28 22:43] LABS: SQUAMOUS EPITHIAL 4 /hpf (0-5); URINE BACTERIA OCC (<OCC); URINE BILIRUBIN NEGATIVE (NEGATIVE); URINE BLOOD NEGATIVE (NEGATIVE); URINE CLARITY TURBID (Clear); URINE COLOR YELLOW (YELLOW); URINE GLUCOSE (UA) NEG (Normal); URINE LEUKOCYTE ESTERASE TRACE Leu/uL (Negative); URINE PROTEIN 30 mg/dL (NEGATIVE)
[2018-02-28 22:45] VITALS: O2SAT 99
[2018-03-01 01:49] LABS: INR 1.9; PROTHROMBIN TIME 20.9 Seconds (9.8-13.1)
[2018-03-01 01:52] LABS: PARTIAL THROMBOPLASTIN TIME 46.4 Seconds (25.6-37.1)
--- NOTE | 2018-03-01 10:31 | RAD ---
Date of service: 02/28/2018 PROCEDURE: CHEST RADIOGRAPH, 1 VIEW HISTORY: HTN COMPARISON: Frontal chest radiograph 06/01/2017. FINDINGS: LUNGS: Left hemidiaphragm appears somewhat less well defined and may reflect interval atelectasis or infiltrate with right lung field clear. PLEURA: No pneumothorax or pleural fluid seen. CARDIOVASCULAR: Stable cardiomegaly. No pulmonary vascular congestion. OSSEOUS STRUCTURES: No significant abnormalities. VISUALIZED UPPER ABDOMEN: Normal. OTHER FINDINGS: None. IMPRESSION: Borderline atelectasis or infiltrate left base with remaining lung johnson clear. Stable cardiomegaly. No acute cardiovascular changes in the interval.
--- NOTE | 2018-03-01 11:17 | CT ---
Date of service: 02/28/2018 PROCEDURE: CT HEAD WITHOUT CONTRAST. HISTORY: poss seizure COMPARISON: Noncontrast head CT 12/14/2017. TECHNIQUE: Axial computed tomography images were obtained through the head/brain without intravenous contrast. Radiation dose: Total exam DLP = 1003.53 mGy-cm. This CT exam was performed using one or more of the following dose reduction techniques: Automated exposure control, adjustment of the mA and/or kV according to patient size, and/or use of iterative reconstruction technique. FINDINGS: HEMORRHAGE: No intracranial hemorrhage. BRAIN: The brain appears stable interval including a large right MCA chronic infarct. Adequate preservation of the corticomedullary borders is identified excluding this area with the posterior fossa contents stable appearing including artifact through the lower brainstem from skullbase. No interval positive mass effect. No suspicious extra-axial fluid collection with midline brain anatomy is stable appearing throughout. Stable diffuse cerebral atrophy chronic microangiopathy are reiterated. VENTRICLES: Unremarkable. No hydrocephalus. CALVARIUM: Unremarkable. PARANASAL SINUSES: Unremarkable as visualized. No significant inflammatory changes. MASTOID AIR CELLS: Unremarkable as visualized. No inflammatory changes. OTHER FINDINGS: None. IMPRESSION: 1. No definite interval acute intracranial findings. Follow-up CT or MRI are available as clinically warranted. 2. Large right chronic MCA infarct reiterated. 3. Age-related neuro degenerative findings again reiterated as well.
--- NOTE | 2018-03-01 14:53 | CARD ---
APPROVED REPORT Date of service: 03/01/2018 EKG Measurement Heart [id number] <Conclusion> Atrial fibrillation Nonspecific T wave changes Abnormal ECG
== END 2018-03-01 03:45 | disposition home or self-care (01) ==
LOC: H.ER 20:11
DX: R29.818 Other symptoms and signs involving the nervous system (principal); N39.0 Urinary tract infection, site not specified; E11.9 Type 2 diabetes mellitus without complications; E78.00 Pure hypercholesterolemia, unspecified; I10 Essential (primary) hypertension; Z79.84 Long term (current) use of oral hypoglycemic drugs; Z86.73 Personal history of transient ischemic attack (TIA), and cerebral infarction without residual deficits; Z96.649 Presence of unspecified artificial hip joint; I63.519 Cerebral infarction due to unspecified occlusion or stenosis of unspecified middle cerebral artery